=== PATIENT | male | born 1965 | race Two or more races ===

== ENCOUNTER 2019-11-27 19:09 | Emergency (ER) | payer MEDICAID ==
[~2019-11-27] VITALS: Ht 167.6 cm; Wt 93.0 kg
--- NOTE | 2019-11-27 19:33 | NUR ---
BIBSELF +SI PLAN TO RUN INTO TRAFFIC. REQUEST TO GO TO [facility]. PT AOX4 RR EVEN AND UNLABORED. NO SOB NOTED. NO NVD AT THIS TIME. PT WAITING FOR MD BARTLETT.
--- NOTE | 2019-11-27 19:36 | NUR ---
LAB WITH PT FOR BLOOD DRAW
[2019-11-27 19:41] LABS: BASOPHILS # (AUTO) 0.1 /CMM (0.0-0.2); BASOPHILS % (AUTO) 0.9 % (0.0-2.0); EOSINOPHILS % (AUTO) 0.8 % (0.0-6.0); HEMATOCRIT 42 % (39-51); HEMOGLOBIN 13.8 g/dL (13.5-17.5); LYMPHOCYTES # (AUTO) 2.2 /CMM (0.8-4.8); LYMPHOCYTES % (AUTO) 31.1 % (20.0-44.0); MEAN CORPUSCULAR HGB CONC 33 g/dl (31.0-36.0); MEAN CORPUSCULAR VOLUME 87 fL (80-96); MONOCYTES # (AUTO) 0.4 /CMM (0.1-1.30); MONOCYTES % (AUTO) 6.1 % (2.0-12.0); NEUTROPHILS # (AUTO) 4.3 /CMM (1.8-8.9); NEUTROPHILS % (AUTO) 61.1 % (43.0-81.0); PLATELET COUNT (AUTO) 219 /CMM (150-450); RED BLOOD CELL COUNT(AUTO) 4.76 MIL/uL (4.5-6.0); WHITE BLOOD COUNT (AUTO) 7.1 K/uL (4.3-11.0)
[2019-11-27 19:47] LABS: APPEARANCE,URINE Clear (CLEAR); BILIRUBIN,URINE Negative (NEGATIVE); BLOOD, URINE Trace-lysed Ery/uL (NEGATIVE); COLOR,URINE Yellow (YELLOW); KETONES,URINE Negative (NEGATIVE); LEUKOCYTE ESTERASE ,URINE Trace (NEGATIVE); NITRITE, URINE Negative (NEGATIVE); PH,URINE 5.5 (5.0-8.0); PROTEIN,URINE Negative (NEGATIVE); UGLUCOSE Negative (NEGATIVE); UROBILINOGEN,URINE 0.2 EU/dL (0.2)
[2019-11-27 20:14] LABS: ALBUMIN 3.9 g/dL (3.4-5.0); BILIRUBIN,DIRECT 0.1 mg/dL (0.0-0.2); BILIRUBIN,TOTAL 0.2 mg/dL (0.2-1.0); CALCIUM, SERUM 10.1 mg/dL (8.5-10.1); CREATININE 1.1 mg/dL (0.6-1.3); POTASSIUM 3.5 mmol/L (3.5-5.1); SALICYLATE 4.3 mg/dL (2.8-20.0); TOTAL PROTEIN, SERUM 8.7 g/dL (6.4-8.2)
[2019-11-27 20:19] LABS: BACTERIA,URINE Few /HPF (None Seen); SQUAMOUS EPITHELIAL CELL,UR Few /HPF (None Seen)
--- NOTE | 2019-11-27 21:00 | NUR ---
PT MOVED FROM CHAIR TO BED 13, CALLED EPI TO TEOFILOD PT, PT PERSONAL BELONGINGS PLACED ON SECURED LOCKER, PT PLACED ON SAFETY PRECAUTION. SITTER WITHIN LINE OF SIGHT.
--- NOTE | 2019-11-28 03:29 | NUR ---
EMILY LEO. DR. TEMPLE REPORT [phone] [place] [id number] Addendum: 11/28/19 at 0334 by MARTINEZ REPORT NUMBER [phone]
--- NOTE | 2019-11-28 03:37 | NUR ---
[facility] CALLED FOR TRANSPORT. ETA 2019. TRIP#[id number]
--- NOTE | 2019-11-28 03:38 | NUR ---
REPORT GIVEN TO LAMONT HAYNES FOR CONTINUITY OF CARE AT [facility].
--- NOTE | 2019-11-28 03:49 | NUR ---
[facility] AT BEDSIDE FOR TRANSPORT TO [facility].
[2019-11-28 03:52] VITALS: BP 126/88
== END 2019-11-28 04:00 ==
LOC: ER 19:19
DX: R45.851 Suicidal ideations (principal); R56.9 Unspecified convulsions; I10 Essential (primary) hypertension; F32.9 Major depressive disorder, single episode, unspecified
CPT/HCPCS: 36415 ×2; 80048; 80076; 80305; 80307 ×3; 80329; 81001; 85025; 99285; G0480; 81000-TC

== ENCOUNTER 2020-01-19 08:32 | Emergency (ER) | payer MEDICAID ==
[~2020-01-19] VITALS: Ht 167.6 cm; Wt 92.5 kg
--- NOTE | 2020-01-19 08:55 | NUR ---
patient came in to the ER c/o suicidal ideation "i want to run through traffic", -HI. On room air, breathing evenly and unlabored. sitter at bedside for constant monitoring. Ambulatory with steady gait.
--- NOTE | 2020-01-19 09:00 | NUR ---
urine collected and sent to lab
[2020-01-19 09:02] LABS: BILIRUBIN,URINE SMALL (NEGATIVE); BLOOD, URINE Moderate Ery/uL (NEGATIVE); KETONES,URINE 15 (NEGATIVE); LEUKOCYTE ESTERASE ,URINE Negative (NEGATIVE); NITRITE, URINE Negative (NEGATIVE); PROTEIN,URINE >=300 mg/dl (NEGATIVE); UGLUCOSE Negative (NEGATIVE)
[2020-01-19 09:04] LABS: APPEARANCE,URINE SLIGHTLY HAZY (CLEAR)
[2020-01-19 09:05] LABS: BACTERIA,URINE Few /HPF (None Seen); COLOR,URINE DARK YELLOW (YELLOW); MUCUS,URINE Moderate /LPF (None Seen); SQUAMOUS EPITHELIAL CELL,UR Few /HPF (None Seen)
--- NOTE | 2020-01-19 09:05 | NUR ---
called security for wanding
--- NOTE | 2020-01-19 09:10 | NUR ---
security at bedside and wand the patient, belongings kept in the locker room.
[2020-01-19 09:21] LABS: BASOPHILS # (AUTO) 0.1 /CMM (0.0-0.2); BASOPHILS % (AUTO) 1.1 % (0.0-2.0); EOSINOPHILS % (AUTO) 0.2 % (0.0-6.0); HEMATOCRIT 41 % (39-51); HEMOGLOBIN 13.7 g/dL (13.5-17.5); LYMPHOCYTES # (AUTO) 1.5 /CMM (0.8-4.8); LYMPHOCYTES % (AUTO) 29.3 % (20.0-44.0); MEAN CORPUSCULAR HGB CONC 33 g/dl (31.0-36.0); MEAN CORPUSCULAR VOLUME 88 fL (80-96); MONOCYTES # (AUTO) 0.4 /CMM (0.1-1.30); MONOCYTES % (AUTO) 7.3 % (2.0-12.0); NEUTROPHILS # (AUTO) 3.2 /CMM (1.8-8.9); NEUTROPHILS % (AUTO) 62.1 % (43.0-81.0); PLATELET COUNT (AUTO) 289 /CMM (150-450); RED BLOOD CELL COUNT(AUTO) 4.67 MIL/uL (4.5-6.0); WHITE BLOOD COUNT (AUTO) 5.2 K/uL (4.3-11.0)
[2020-01-19 09:32] LABS: CALCIUM, SERUM 9.6 mg/dL (8.5-10.1); POTASSIUM 3.5 mmol/L (3.5-5.1)
[2020-01-19 09:38] LABS: BILIRUBIN,DIRECT 0.2 mg/dL (0.0-0.2); BILIRUBIN,TOTAL 0.5 mg/dL (0.2-1.0); SALICYLATE 4.5 mg/dL (2.8-20.0)
--- NOTE | 2020-01-19 10:10 | NUR ---
EMERGENCY MEDICAL TECHNICIAN was informed by ESTHELA Lyons regarding pt. wanting voluntary psychiatric admission to [facility]. EMERGENCY MEDICAL TECHNICIAN contacted [facility] who stated they will have a bed for the pt. at [place] or [place]. EMERGENCY MEDICAL TECHNICIAN faxed clinicals to intake at . EMERGENCY MEDICAL TECHNICIAN to meet with pt. for a psychosocial assessment.
--- NOTE | 2020-01-19 10:30 | NUR ---
Social service consult requested by MD for suicidal ideation with a plan to "jump into traffic." Per MD notes, "pt is 54-year-old male who has a history of depression and suicidal ideation presents the emergency room complaining of suicidal ideation and wanting to run into traffic the last 2 days. Patient states he was last hospitalized proximate 3 weeks ago at [facility]. Patient admits to recent alcohol and marijuana use. Patient states he is taking his medications for his depression and also for hypertension and seizures. Patient has not missed any doses." MATERIAL EXPEDITOR met with the pt bedside. Pt is alert and oriented x 4. Pt was watching TV when MATERIAL EXPEDITOR approached him. MATERIAL EXPEDITOR introduced self and purpose of her visit. Pt is homeless and has been for 2 weeks. Pt was staying with his cousin but had to move out due to cousin's daughter moved in. Pt has been staying with friends. Pt. has a psychiatric diagnosis of Schizophrenia and is currently taking Seroquel, Keppra and high blood pressure medication. Pt has suicidal ideations with a plan to run into traffic. Pt also reports to having auditory hallucinations telling him to " hurt himself." Pt smokes marijuana and reports to drink a 1/5 of vodka occasionally. Pt is willing to go voluntary to [facility]. Pt has been referred and is awaiting a bed. [facility] updated Dr. Zacarias and ESTHELA Lyons.
--- NOTE | 2020-01-19 12:03 | NUR ---
ROOFER METAL [facility] for [facility]/up. Per CJ pt has been placed on a "Do not admit list" for [facility] and clinicals have been forwarded to [facility]. ROOFER METAL contacted Jeffy at [facility], and was informed he did receive the clinicals and are currently awaiting discharges at this time. Jeffy to f/up with ED or SW. ROOFER METAL also contacted [facility] regarding pt being on a "Do not admit list." [facility] will f/u and call back ROOFER METAL.
--- NOTE | 2020-01-19 12:22 | NUR ---
FOREIGN DIPLOMAT received a call from [facility] informing [facility] they will be accepting the pt at [place].
[2020-01-19 16:27] VITALS: BP 120/71
--- NOTE | 2020-01-19 19:54 | NUR ---
SPOKE TO [facility] FOR TRANSFER INFO. ACCEPTING MD: DR. DAILY REPORT #: UNIT 1
--- NOTE | 2020-01-19 20:12 | NUR ---
CALLED TO [facility] FOR BLS TRANSPORT TO [facility]. RUN #: [id number] ETA: 30MIN-4 HOURS
--- NOTE | 2020-01-19 21:27 | NUR ---
RECEIVED CALL FROM [facility]. ETA: 45 MIN
--- NOTE | 2020-01-19 21:59 | NUR ---
REPORT GIVEN TO ADDIE MIGUEL FOR CONTINUATION OF CARE.
--- NOTE | 2020-01-19 22:47 | NUR ---
[facility] AT BEDSIDE FOR TRANSPORT.
== END 2020-01-19 22:50 ==
LOC: ER 08:32
DX: R45.851 Suicidal ideations (principal); F32.9 Major depressive disorder, single episode, unspecified; I10 Essential (primary) hypertension; Z60.2 Problems related to living alone
CPT/HCPCS: 36415; 80048; 80076; 80305; 80307; 80329; 81001; 85025; 99285; G0480; 81000-TC

== ENCOUNTER → 2020-03-13 | Emergency (ER) | payer MEDICAID ==
[~2020-03-13] VITALS: Ht 167.6 cm; Wt 90.7 kg
[~2020-03-13] MED LIST: FOLIC ACID 1 MG TABLET PO ONE; HYDROCHLOROTHIAZIDE 25 MG TABLET ONE; HYDROCHLOROTHIAZIDE 25 MG TABLET PO ONE; IV NS 0.9% 1,000 ML BAG IV ONE; THIAMINE HCL 100 MG TABLET PO ONE
[2020-03-13 16:33] LABS: BASOPHILS # (AUTO) 0.1 /CMM (0.0-0.2); BASOPHILS % (AUTO) 1.8 % (0.0-2.0); EOSINOPHILS % (AUTO) 0.5 % (0.0-6.0); HEMATOCRIT 42 % (39-51); HEMOGLOBIN 14.2 g/dL (13.5-17.5); LYMPHOCYTES # (AUTO) 1.9 /CMM (0.8-4.8); MEAN CORPUSCULAR HGB CONC 34 g/dl (31.0-36.0); MEAN CORPUSCULAR VOLUME 88 fL (80-96); MONOCYTES # (AUTO) 0.3 /CMM (0.1-1.30); MONOCYTES % (AUTO) 4.7 % (2.0-12.0); NEUTROPHILS # (AUTO) 3.7 /CMM (1.8-8.9); PLATELET COUNT (AUTO) 305 /CMM (150-450); RED BLOOD CELL COUNT(AUTO) 4.83 MIL/uL (4.5-6.0)
[2020-03-13 16:40] LABS: CALCIUM, SERUM 9.2 mg/dL (8.5-10.1); CREATININE 1.4 mg/dL (0.6-1.3); POTASSIUM 3.8 mmol/L (3.5-5.1)
--- NOTE | 2020-03-13 16:47 | NUR ---
Patient awake alert ambulatory able to follows commands urine obtained and send to lab
[2020-03-13 16:48] LABS: ALBUMIN 4.2 g/dL (3.4-5.0); BILIRUBIN,DIRECT 0.1 mg/dL (0.0-0.2); BILIRUBIN,TOTAL 0.4 mg/dL (0.2-1.0); SALICYLATE 3.3 mg/dL (2.8-20.0); TOTAL PROTEIN, SERUM 9.6 g/dL (6.4-8.2)
--- NOTE | 2020-03-13 19:06 | NUR ---
PT AAOX4. PLACED ON MONITOR AND PULSE OX. RR EVEN AND UNLABORED, PT IN BED WATCHING TV. WILL CONTINUE TO MONITOR PT. VSS.
--- NOTE | 2020-03-13 21:04 | NUR ---
Patient is resting comfortably in bed. Easily aroused. VSS.
--- NOTE | 2020-03-13 22:25 | NUR ---
CLINICAL AND FACESHEET FAXED TO [facility] FOR VOLUNTARY PSYCH ADMISSION.
--- NOTE | 2020-03-13 22:34 | NUR ---
MISSING UA AND LIVER PANEL.
--- NOTE | 2020-03-13 22:40 | NUR ---
PER INTAKE, "WILL WAIT FOR UA AND LIVER PANEL" THEN CALL BACK.
--- NOTE | 2020-03-13 22:52 | NUR ---
IV removed. Catheter intact and site benign. Pressure and 4x4 applied to site. No bleeding noted.
--- NOTE | 2020-03-13 23:02 | NUR ---
PER JOSEFINA, FAX AFTER ALCOHOL IS BELOW 100.
--- NOTE | 2020-03-14 03:20 | NUR ---
PATIENT RESTING COMFORTABLY. PT IS ASLEEP, EASILY AROUSED.
--- NOTE | 2020-03-14 04:11 | NUR ---
David olivares in [facility] - 03/14/20 at 0626 by MICKEY PT ACCEPTED AT [facility] MD ARAGON PHONE # FOR REPORT EXT [phone]
--- NOTE | 2020-03-14 05:40 | NUR ---
CLINICAL AND FACESHEET FAXED TO [facility] INTAKE FOR VOLUNTARY PSYCH ADMISSION.
[2020-03-14 07:10] VITALS: BP 165/100
--- NOTE | 2020-03-14 07:30 | NUR ---
PT ACCEPTED AT [facility] ACCEPTING MD AGOSTO PHONE # FOR REPORT EXT [phone] ROOM P6
--- NOTE | 2020-03-14 08:11 | NUR ---
CALLED [facility] FOR TRANSPORT. 4 HOUR WAIT WINDOW, WILL CALL BACK IF THERE IS A SOONER ETA. REFERENCE NUMBER [id number].
--- NOTE | 2020-03-14 08:31 | NUR ---
RECIEVED A CALL BACK FROM [facility] WITH [facility]SPORT INFORMATION. DIANA WILL BE TRANSPORTING THE PT. ETA [phone].
== END | disposition short-term general hospital (02) ==
LOC: ER 16:14
DX: R45.851 Suicidal ideations (principal); F10.129 Alcohol abuse with intoxication, unspecified; E87.2 Acidosis; N28.9 Disorder of kidney and ureter, unspecified; E86.0 Dehydration; I10 Essential (primary) hypertension; F32.9 Major depressive disorder, single episode, unspecified; F17.200 Nicotine dependence, unspecified, uncomplicated; Z59.0 Homelessness; Y90.9 Presence of alcohol in blood, level not specified
CPT/HCPCS: 36415 ×2; 80048; 80076; 80305; 80307 ×4; 80329; 85025; 96360; 99285; G0480; J7030

== ENCOUNTER 2020-06-17 20:14 | Emergency (ER) | payer MEDICAID ==
[~2020-06-17] VITALS: Ht 167.6 cm; Wt 90.7 kg
--- NOTE | 2020-06-17 20:24 | NUR ---
REQ MED [facility]ANCE FOR VOLUNTARY PSYCH ADMIT; +SI "RUN INTO TRAFFIC" -HI; PT TO BED 15, AAOX4, -SOB, NO MEDICAL COMPLAINTS; CALM AND COOPERATIVE. -SOB. -CP. SI PRECAUTIONS OBSERVED, VSS. PENDING ER PROVIDER TRI
--- NOTE | 2020-06-17 20:34 | NUR ---
ALL BELONGINGS KEPT IN LOCKER 3
[2020-06-17 21:07] LABS: BASOPHILS % (AUTO) 0.8 % (0.0-2.0); EOSINOPHILS % (AUTO) 1.5 % (0.0-6.0); HEMATOCRIT 39 % (39-51); HEMOGLOBIN 12.6 g/dL (13.5-17.5); LYMPHOCYTES # (AUTO) 2.1 /CMM (0.8-4.8); LYMPHOCYTES % (AUTO) 39.4 % (20.0-44.0); MEAN CORPUSCULAR HGB CONC 33 g/dl (31.0-36.0); MEAN CORPUSCULAR VOLUME 88 fL (80-96); MONOCYTES # (AUTO) 0.5 /CMM (0.1-1.30); MONOCYTES % (AUTO) 9.2 % (2.0-12.0); NEUTROPHILS # (AUTO) 2.6 /CMM (1.8-8.9); NEUTROPHILS % (AUTO) 49.1 % (43.0-81.0); PLATELET COUNT (AUTO) 284 /CMM (150-450); RED BLOOD CELL COUNT(AUTO) 4.39 MIL/uL (4.5-6.0); WHITE BLOOD COUNT (AUTO) 5.3 K/uL (4.3-11.0)
[2020-06-17 21:11] LABS: APPEARANCE,URINE Clear (CLEAR); BILIRUBIN,URINE Negative (NEGATIVE); BLOOD, URINE Negative Ery/uL (NEGATIVE); COLOR,URINE Yellow (YELLOW); KETONES,URINE Negative (NEGATIVE); LEUKOCYTE ESTERASE ,URINE Negative (NEGATIVE); NITRITE, URINE Negative (NEGATIVE); PROTEIN,URINE Negative (NEGATIVE); UGLUCOSE Negative (NEGATIVE); UROBILINOGEN,URINE 0.2 EU/dL (0.2)
[2020-06-17 21:17] LABS: CALCIUM, SERUM 10.2 mg/dL (8.5-10.1); CARBON DIOXIDE 33 mmol/L (21-32); CHLORIDE 100 mmol/L (98-107); CREATININE 1.3 mg/dL (0.6-1.3); GLUCOSE 108 mg/dL (74-106); SODIUM SERUM 140 mmol/L (136-145); UREA NITROGEN, BLOOD 13 mg/dL (7-18)
[2020-06-17 21:22] LABS: ALANINE AMINOTRANSFERASE 23 U/L (12-78); ALBUMIN 3.8 g/dL (3.4-5.0); ALCOHOL, BLOOD 149 mg/dL (0-0); ALKALINE PHOSPHATASE 72 U/L (46-116); ASPARTATE AMINOTRANSFERASE 21 U/L (15-37); BILIRUBIN,DIRECT 0.1 mg/dL (0.0-0.2); BILIRUBIN,TOTAL 0.2 mg/dL (0.2-1.0); SALICYLATE 3.6 mg/dL (2.8-20.0); TOTAL PROTEIN, SERUM 8.1 g/dL (6.4-8.2)
[2020-06-17 21:23] LABS: ACETAMINOPHEN < 10 ug/ml (10-30)
[2020-06-17] MEDS ORDERED: POTASSIUM CHLORIDE 20 MEQ TAB.PRT.SR PO ONE ×2 (21:30→21:34)
--- NOTE | 2020-06-17 21:42 | NUR ---
PT ASLEEP/ VSS. PROVIDED WITH BLANKET.
--- NOTE | 2020-06-18 02:48 | NUR ---
PT ACCEPTED TO [facility] ACCEPTING MD: DR. DAILY UNIT 1 NUMBER FOR REPORT: [phone]
--- NOTE | 2020-06-18 02:51 | NUR ---
CALLED [facility] FOR TRANSPORTATION CONFIRMATION [phone]. WILL CALL BACK WITH ETA
--- NOTE | 2020-06-18 03:00 | NUR ---
[facility] ETA 30 MINUTES
[2020-06-18] MEDS ORDERED: POTASSIUM CHLORIDE 20 MEQ TAB.PRT.SR PO ONE ×2 (03:03→03:30)
--- NOTE | 2020-06-18 03:20 | NUR ---
REPORT GIVEN TO LAMONT NAJERA FROM [facility] FOR AMY
[2020-06-18 03:21] VITALS: BP 137/84
--- NOTE | 2020-06-18 03:27 | NUR ---
PT TRANSFERED TO [facility]
== END 2020-06-18 03:54 ==
LOC: ER 20:22
DX: R45.851 Suicidal ideations (principal); F32.9 Major depressive disorder, single episode, unspecified; F10.129 Alcohol abuse with intoxication, unspecified; F17.200 Nicotine dependence, unspecified, uncomplicated; I10 Essential (primary) hypertension; Z59.0 Homelessness; Y90.6 Blood alcohol level of 120-199 mg/100 ml
CPT/HCPCS: 36415; 80048; 80076; 80305; 80307 ×2; 80329; 81001; 85025; 99285; G0480; 81000-TC

== ENCOUNTER 2020-07-09 17:28 | Emergency (ER) | payer MEDICAID ==
[~2020-07-09] VITALS: Ht 167.6 cm; Wt 90.7 kg
--- NOTE | 2020-07-09 17:35 | NUR ---
patient came in to the er c/o suicidal ideation " i want to run through traffic". On room air, breathing evenly and unlabored. connected to the monitor and pulse ox, sitter at bedside for constant monitoring.
--- NOTE | 2020-07-09 17:36 | NUR ---
called security for wanding
--- NOTE | 2020-07-09 17:38 | NUR ---
security at bedside for wanding.
--- NOTE | 2020-07-09 18:07 | NUR ---
URINE SPECIMEN COLLECTED AND SENT TO LAB.
[2020-07-09 18:10] LABS: BASOPHILS # (AUTO) 0.1 /CMM (0.0-0.2); BASOPHILS % (AUTO) 0.9 % (0.0-2.0); EOSINOPHILS % (AUTO) 1.8 % (0.0-6.0); HEMATOCRIT 38 % (39-51); HEMOGLOBIN 12.8 g/dL (13.5-17.5); LYMPHOCYTES % (AUTO) 31.7 % (20.0-44.0); MEAN CORPUSCULAR HGB CONC 34 g/dl (31.0-36.0); MEAN CORPUSCULAR VOLUME 88 fL (80-96); MONOCYTES # (AUTO) 0.5 /CMM (0.1-1.30); MONOCYTES % (AUTO) 7.8 % (2.0-12.0); NEUTROPHILS # (AUTO) 3.6 /CMM (1.8-8.9); NEUTROPHILS % (AUTO) 57.8 % (43.0-81.0); PLATELET COUNT (AUTO) 221 /CMM (150-450); RED BLOOD CELL COUNT(AUTO) 4.38 MIL/uL (4.5-6.0); WHITE BLOOD COUNT (AUTO) 6.3 K/uL (4.3-11.0)
[2020-07-09 18:11] LABS: APPEARANCE,URINE Clear (CLEAR); BILIRUBIN,URINE SMALL (NEGATIVE); BLOOD, URINE Trace-intact Ery/uL (NEGATIVE); COLOR,URINE Yellow (YELLOW); KETONES,URINE 15 (NEGATIVE); LEUKOCYTE ESTERASE ,URINE Negative (NEGATIVE); NITRITE, URINE Negative (NEGATIVE); PROTEIN,URINE 30 mg/dl (NEGATIVE); UGLUCOSE Negative (NEGATIVE); UROBILINOGEN,URINE 0.2 EU/dL (0.2)
[2020-07-09 18:17] LABS: CALCIUM, SERUM 9.6 mg/dL (8.5-10.1); CARBON DIOXIDE 23 mmol/L (21-32); CHLORIDE 101 mmol/L (98-107); CREATININE 1.8 mg/dL (0.6-1.3); GLUCOSE 104 mg/dL (74-106); SODIUM SERUM 138 mmol/L (136-145); UREA NITROGEN, BLOOD 19 mg/dL (7-18)
[2020-07-09 18:23] LABS: ALANINE AMINOTRANSFERASE 39 U/L (12-78); ALBUMIN 3.9 g/dL (3.4-5.0); ALCOHOL, BLOOD 71 mg/dL (0-0); ALKALINE PHOSPHATASE 88 U/L (46-116); ASPARTATE AMINOTRANSFERASE 25 U/L (15-37); BILIRUBIN,DIRECT 0.1 mg/dL (0.0-0.2); BILIRUBIN,TOTAL 0.4 mg/dL (0.2-1.0); TOTAL PROTEIN, SERUM 8.1 g/dL (6.4-8.2)
[2020-07-09 18:24] LABS: ACETAMINOPHEN < 10 ug/ml (10-30); SALICYLATE 2.7 mg/dL (2.8-20.0)
[2020-07-09 18:26] LABS: BACTERIA,URINE 1+ /HPF (None Seen); HYALINE CASTS, URINE Few /LPF (None Seen); MUCUS,URINE Moderate /LPF (None Seen); RBC,URINE 0-2 /HPF (0-2); WBC,URINE 0-2 /HPF (0-3)
[2020-07-09] MEDS ORDERED: POTASSIUM CHLORIDE 20 MEQ TAB.PRT.SR PO ONE (18:59)
[2020-07-09] MEDS: IV NS 0.9% 1,000 ML IV ONE (19:03)
[2020-07-09] MEDS: POTASSIUM CHLORIDE 20 MEQ TAB.PRT.SR PO ONE (19:03)
--- NOTE | 2020-07-09 19:15 | NUR ---
ASSUMED CARE FOR THIS PT
[2020-07-09] MEDS ORDERED: ACETAMINOPHEN ES 500 MG TABLET ONE ×3 (20:22→22:08)
[2020-07-09] MEDS: ACETAMINOPHEN ES 500 MG TABLET PO ONE (20:33)
--- NOTE | 2020-07-09 21:54 | NUR ---
PT RESTING COMFORTABLY IN BED. VSS. NOT IN RESPIRATORY DISTRESS. SITTER AT BEDSIDE FOR SAFETY. WILL MONITOR ACCORDINGLY
--- NOTE | 2020-07-09 23:16 | NUR ---
ACCEPTED AT: [facility] UNIT 2 REPORT: [phone] ARAGON
--- NOTE | 2020-07-09 23:25 | NUR ---
REPORT GIVEN TO LAMONT RAGSDALE [facility] FOR AMY
--- NOTE | 2020-07-09 23:27 | NUR ---
PER LAMONT RAGSDALE REDRAW FOR ALCOHOL AND POTASSIUM
--- NOTE | 2020-07-09 23:27 | NUR ---
SPOKE W/ JN, NO NEED FOR REDRAW FOR K+ AND ALCOHOL
--- NOTE | 2020-07-09 23:34 | NUR ---
[facility] called for BLS transport. Pending ETA. [phone]
--- NOTE | 2020-07-10 01:53 | NUR ---
[facility] ETA 45 MINUTES
[2020-07-10 02:25] VITALS: BP 132/71
--- NOTE | 2020-07-10 02:25 | NUR ---
[facility] at bedside for transport to [facility].
== END 2020-07-10 02:26 | disposition home or self-care (01) ==
LOC: ER 17:39
DX: R45.851 Suicidal ideations (principal); F32.9 Major depressive disorder, single episode, unspecified; N28.9 Disorder of kidney and ureter, unspecified; E86.0 Dehydration; E87.6 Hypokalemia; I10 Essential (primary) hypertension; Z59.0 Homelessness
CPT/HCPCS: 36415; 80048; 80076; 80305; 80307; 80329; 81001; 85025; 96360; 99285; G0480; J7030; 81000-TC

== ENCOUNTER 2020-07-23 18:26 | Emergency (ER) | payer MEDICAID ==
[~2020-07-23] VITALS: Ht 165.1 cm; Wt 97.1 kg
--- NOTE | 2020-07-23 18:41 | NUR ---
CAME IN FOR SI, "I WANT TO RUN THROUGH TRAFFIC". TO ER BED 11, HOOKED TO MONITOR, CHANGED TO HOSP GOWN, BELONGINGS PLACED IN PATIENT LOCKER. AWAITING MD BARTLETT
--- NOTE | 2020-07-23 18:42 | NUR ---
GADIEL MOON AT BEDSIDE
--- NOTE | 2020-07-23 18:45 | NUR ---
SUICIDE PRECAUTIONS APPLIED. SITTER AT BEDSIDE FOR SAFETY.
--- NOTE | 2020-07-23 18:49 | NUR ---
URINE SAMPLE COLLECTED AND SENT TO LAB
--- NOTE | 2020-07-23 18:56 | NUR ---
SECURITY AT BEDSIDE FOR WANDING
[2020-07-23 18:59] LABS: APPEARANCE,URINE Clear (CLEAR); BILIRUBIN,URINE Negative (NEGATIVE); BLOOD, URINE Trace-intact Ery/uL (NEGATIVE); COLOR,URINE Light yellow (YELLOW); KETONES,URINE Negative (NEGATIVE); LEUKOCYTE ESTERASE ,URINE Negative (NEGATIVE); NITRITE, URINE Negative (NEGATIVE); PROTEIN,URINE Negative (NEGATIVE); UGLUCOSE Negative (NEGATIVE); UROBILINOGEN,URINE 0.2 EU/dL (0.2)
[2020-07-23] MEDS ORDERED: IBUPROFEN 600 MG TABLET PO ONE ×2 (19:00→19:06)
[2020-07-23 19:07] LABS: BASOPHILS # (AUTO) 0.1 /CMM (0.0-0.2); BASOPHILS % (AUTO) 0.9 % (0.0-2.0); EOSINOPHILS % (AUTO) 1.3 % (0.0-6.0); HEMATOCRIT 37 % (39-51); HEMOGLOBIN 12.2 g/dL (13.5-17.5); LYMPHOCYTES # (AUTO) 2.3 /CMM (0.8-4.8); LYMPHOCYTES % (AUTO) 36.1 % (20.0-44.0); MEAN CORPUSCULAR HGB CONC 33 g/dl (31.0-36.0); MEAN CORPUSCULAR VOLUME 88 fL (80-96); MONOCYTES # (AUTO) 0.5 /CMM (0.1-1.30); MONOCYTES % (AUTO) 7.6 % (2.0-12.0); NEUTROPHILS # (AUTO) 3.5 /CMM (1.8-8.9); NEUTROPHILS % (AUTO) 54.1 % (43.0-81.0); PLATELET COUNT (AUTO) 269 /CMM (150-450); RED BLOOD CELL COUNT(AUTO) 4.23 MIL/uL (4.5-6.0); WHITE BLOOD COUNT (AUTO) 6.4 K/uL (4.3-11.0)
--- NOTE | 2020-07-23 19:11 | NUR ---
PT REASSESSED. PT AAOX4, VSS, RESPIRATIONS EVEN AND UNLABORED ON RA W/ NAD NOTED. PT CONNECTED TO THE MONITOR AND POX. SITTER AT BEDSIDE FOR SAFETY AND CONSTANT AND OBSERVATION.
[2020-07-23 19:14] LABS: CARBON DIOXIDE 24 mmol/L (21-32); CHLORIDE 104 mmol/L (98-107); CREATININE 1.3 mg/dL (0.6-1.3); GLUCOSE 111 mg/dL (74-106); POTASSIUM 3.5 mmol/L (3.5-5.1); SODIUM SERUM 140 mmol/L (136-145); UREA NITROGEN, BLOOD 13 mg/dL (7-18)
[2020-07-23 19:19] LABS: ALANINE AMINOTRANSFERASE 26 U/L (12-78); ALBUMIN 3.8 g/dL (3.4-5.0); ALCOHOL, BLOOD 133 mg/dL (0-0); ALKALINE PHOSPHATASE 80 U/L (46-116); ASPARTATE AMINOTRANSFERASE 24 U/L (15-37); BILIRUBIN,DIRECT 0.1 mg/dL (0.0-0.2); BILIRUBIN,TOTAL 0.3 mg/dL (0.2-1.0); SALICYLATE 2.9 mg/dL (2.8-20.0); TOTAL PROTEIN, SERUM 8.6 g/dL (6.4-8.2)
[2020-07-23 19:19] LABS: BACTERIA,URINE Few /HPF (None Seen); SQUAMOUS EPITHELIAL CELL,UR Many /HPF (None Seen)
[2020-07-23 19:20] LABS: RBC,URINE 0-2 /HPF (0-2); WBC,URINE 0-2 /HPF (0-3)
[2020-07-23 19:23] LABS: ACETAMINOPHEN < 2 ug/ml (10-30)
--- NOTE | 2020-07-23 21:20 | NUR ---
WOUND CARE COORDINATOR AT BEDSIDE FOR BLOOD DRAW
--- NOTE | 2020-07-23 23:43 | NUR ---
PT RESTING COMFORTABLY IN BED. VSS. NO ACUTE DISTRESS NOTED. SITTER AT BEDSIDE FOR SAFETY. WILL CONTINUE TO MONITOR
--- NOTE | 2020-07-24 00:34 | NUR ---
PER CJ FROM [facility] INTAKE, PT ON "DO NOT ADMIT LIST" FOR [facility]
--- NOTE | 2020-07-24 06:01 | NUR ---
PT ASLEEP. VSS. NO ACUTE DISTRESS NOTED. SITTER AT BEDSIDE FOR SAFETY. WILL CONTINUE TO MONITOR
--- NOTE | 2020-07-24 07:15 | NUR ---
PATIENT CLEARED BY KANDY CRISIS UNLEAVENED DOUGH MIXER. PT OK TO BE DISCHARGED HOME PER DR RENEE. PT DENIES SI/HI. Patient discharged to home in stable condition. Written and verbal after care instructions given. Patient verbalizes understanding of instruction.Patient is awake and alert to self, day, and place. PT ambulatory with a steady gait
[2020-07-24 07:16] VITALS: BP 131/78
== END 2020-07-24 07:16 | disposition home or self-care (01) ==
LOC: ER 18:26
DX: R45.851 Suicidal ideations (principal); F32.9 Major depressive disorder, single episode, unspecified; M54.5 Low back pain; I10 Essential (primary) hypertension; G40.909 Epilepsy, unspecified, not intractable, without status epilepticus; F17.200 Nicotine dependence, unspecified, uncomplicated; Z59.0 Homelessness
CPT/HCPCS: 36415; 80048; 80076; 80305; 80307 ×3; 80329; 81001; 85025; 99285; G0480; 81000-TC

== ENCOUNTER 2020-07-25 09:42 | Emergency (ER) | payer MEDICAID ==
[~2020-07-25] VITALS: Ht 157.5 cm; Wt 92.5 kg
--- NOTE | 2020-07-25 09:45 | NUR ---
AAOX3, CAME TO ER C/O SUICIDAL IDEATION "I WANT TO HARM MYSELF" PLAN IS TO "RUN INTO TRAFFIC". RR IS EVEN AND UNLABORED WITH NAD NOTED. SKIN IS WARM AND DRY. AWAITING MD FOR EVAL.
--- NOTE | 2020-07-25 10:00 | NUR ---
DR JAMES AT FOR EVAL.
[2020-07-25 10:49] LABS: BASOPHILS % (AUTO) 0.6 % (0.0-2.0); EOSINOPHILS % (AUTO) 0.8 % (0.0-6.0); HEMATOCRIT 40 % (39-51); HEMOGLOBIN 12.9 g/dL (13.5-17.5); LYMPHOCYTES # (AUTO) 1.2 /CMM (0.8-4.8); LYMPHOCYTES % (AUTO) 23.5 % (20.0-44.0); MEAN CORPUSCULAR HGB CONC 32 g/dl (31.0-36.0); MEAN CORPUSCULAR VOLUME 88 fL (80-96); MONOCYTES # (AUTO) 0.3 /CMM (0.1-1.30); MONOCYTES % (AUTO) 5.7 % (2.0-12.0); NEUTROPHILS # (AUTO) 3.7 /CMM (1.8-8.9); NEUTROPHILS % (AUTO) 69.4 % (43.0-81.0); PLATELET COUNT (AUTO) 294 /CMM (150-450); RED BLOOD CELL COUNT(AUTO) 4.53 MIL/uL (4.5-6.0); WHITE BLOOD COUNT (AUTO) 5.3 K/uL (4.3-11.0)
[2020-07-25 10:58] LABS: APPEARANCE,URINE CLEAR (CLEAR); BILIRUBIN,URINE NEGATIVE (NEGATIVE); BLOOD, URINE SMALL Ery/uL (NEGATIVE); COLOR,URINE YELLOW (YELLOW); KETONES,URINE TRACE (NEGATIVE); LEUKOCYTE ESTERASE ,URINE NEGATIVE (NEGATIVE); NITRITE, URINE NEGATIVE (NEGATIVE); PROTEIN,URINE 100 mg/dl (NEGATIVE); UGLUCOSE NEGATIVE (NEGATIVE); UROBILINOGEN,URINE 0.2 EU/dL (0.2)
[2020-07-25 11:08] LABS: BACTERIA,URINE Rare /HPF (None Seen); MUCUS,URINE Few /LPF (None Seen); SQUAMOUS EPITHELIAL CELL,UR Few /HPF (None Seen); WBC,URINE 0-2 /HPF (0-3)
[2020-07-25 11:14] LABS: CALCIUM, SERUM 9.9 mg/dL (8.5-10.1); CARBON DIOXIDE 27 mmol/L (21-32); CHLORIDE 102 mmol/L (98-107); CREATININE 1.2 mg/dL (0.6-1.3); GLUCOSE 141 mg/dL (74-106); SODIUM SERUM 139 mmol/L (136-145); UREA NITROGEN, BLOOD 13 mg/dL (7-18)
[2020-07-25 11:19] LABS: ALANINE AMINOTRANSFERASE 30 U/L (12-78); ALCOHOL, BLOOD < 3 mg/dL (0-0); ALKALINE PHOSPHATASE 70 U/L (46-116); ASPARTATE AMINOTRANSFERASE 43 U/L (15-37); BILIRUBIN,DIRECT 0.1 mg/dL (0.0-0.2); BILIRUBIN,TOTAL 0.6 mg/dL (0.2-1.0); TOTAL PROTEIN, SERUM 8.6 g/dL (6.4-8.2)
[2020-07-25 11:20] LABS: SALICYLATE 2.3 mg/dL (2.8-20.0)
[2020-07-25 12:29] LABS: ACETAMINOPHEN 0 ug/ml (10-30)
--- NOTE | 2020-07-25 13:01 | NUR ---
Patient is resting comfortably in bed with eyes closed. Easily aroused. VSS
--- NOTE | 2020-07-25 14:29 | NUR ---
patient stated he takes regular medication of HYDROCHLOROTHIAZIDE 25MG AND KEPPRA 500MG. DR. AMAYA MADE AWARE AND GAVE VERBAL ORDER.
[2020-07-25] MEDS ORDERED: HYDROCHLOROTHIAZIDE 25 MG TABLET PO ONE (14:30)
[2020-07-25] MEDS ORDERED: HYDROCHLOROTHIAZIDE 25 MG TABLET ONE (14:30)
[2020-07-25] MEDS ORDERED: LEVETIRACETAM (250 MG) 250 MG TABLET PO ONE ×2 (14:30)
--- NOTE | 2020-07-25 16:24 | NUR ---
3:30pm Warehouse Manager met with the patient at bedside in the ED. Patient is a 55-year-old Male. Patient presented to the ED per complaints of suicidal ideation. Patient was receptive to speaking with this SW. Patient is alert and oriented x3. Patient was able to confirm demographics including date of and social security number. Patient informed this SW that patient is homeless, and on occasion patient stays his friend Mark Bhatia . Patient reported to this SW that he would like resources including year-round shelters if there is a time he cannot stay with Mark. Patient stated that on occasion when I cannot stay with Mark, I stay at a hotel costing me $400. Patient reports that he drinks 1 pint of vodka every other day. Patient reports smoking marijuana every other day. Patient stated that he would like resources to help him quit so my family can speak to me again. Patient reports that he receives SSI approximately $896 a month Patient reports that he has had suicidal ideations in the past and that his current plan is to run into traffic. Patient would like his treatment plan to include voluntary psychiatric hospitalization. This SW faxed over clinicals to Jhonny at [facility] . This SW currently waiting on bed availability. This SW to provide this patient with homelessness resource packet and this SW remains available for all needs of the patient.
--- NOTE | 2020-07-25 16:24 | NUR ---
3:45pm This SW provided the following Homelessness resource packet to this patient and had the patient sign the homeless patient waiver form. This SW to include the homeless patient waiver form in his chart. Substance Abuse resources provided included: [facility] Substance Abuse Self-Helpline ([facility]) ; CRI -HELP [address] [facility]. [place] [id number] ; [facility] [place] [address] [facility] [address] ; [facility] [address] [address] [facility] [place] [phone] ; [facility] [address] [facility] [id number] ; [facility] [address] [facility] [id number] ; [facility] [address] [facility] [id number] ; [facility] Substance Abuse Helpline([facility])-[facility] ; [facility] ; [facility] [place]; [facility] [place]; [facility] [place]; [place] [facility] [place]; [facility] [place]; [facility] [place]; [facility] [place]; Alcoholics Anonymous -SFV; Dx-Qldv-Qjugkrn ; Marijuana Anonymous -SFV; Narcotics Anonymous www.na.org. Year-round shelters : [place] [facility] [address] [place] [address] ; [facility] Cash [address] [place] [address]; [facility] [address] [facility] [address] Hygiene: [facility]: [address] [place] ; [facility] [address] [address] [place] ; [facility] [address] . Food Resources: [facility] at [facility]- [address] [place]; Meet Each Need wit Dignity ([facility]) [address] [place]; [facility] [address]; [facility] [address].
--- NOTE | 2020-07-25 16:41 | NUR ---
NO BED AVAILABLE AT [facility] AT THIS TIME.
--- NOTE | 2020-07-25 17:37 | NUR ---
RECEIVED A CALL FROM [facility], PATIENT IS ACCEPTED AT [facility] BY DR. DAILY GOING TO UNIT#1
--- NOTE | 2020-07-25 17:56 | NUR ---
REPORT GIVEN TO JOE MIGUEL AT [facility].
--- NOTE | 2020-07-25 18:01 | NUR ---
ETA 2-4 HOURS. CONFIRMATION # [id number]
--- NOTE | 2020-07-25 18:09 | NUR ---
[facility] ETA
--- NOTE | 2020-07-25 20:24 | NUR ---
[facility] ETA ~45 MINS
[2020-07-25 22:15] VITALS: BP 149/75
--- NOTE | 2020-07-25 22:38 | NUR ---
PT TRANSPORTED TO [facility]. PT GOING ON VOLUNTARY STATUS FOR S/I, PT VSS, NAD NOTED, REMAINS STABLE, NO ACUTE EVENTS. REPORT GIVEN TO AMBULANCE STAFF.
== END 2020-07-25 22:40 ==
LOC: ER 10:05
DX: R45.851 Suicidal ideations (principal); I10 Essential (primary) hypertension; F32.9 Major depressive disorder, single episode, unspecified; F17.200 Nicotine dependence, unspecified, uncomplicated; Z59.0 Homelessness
CPT/HCPCS: 36415; 80048; 80076; 80305; 80307; 80329; 81001; 85025; 99285; G0480; 81000-TC

== ENCOUNTER 2020-08-10 17:10 | Emergency (ER) | payer MEDICAID ==
[~2020-08-10] VITALS: Ht 167.6 cm; Wt 97.1 kg
--- NOTE | 2020-08-10 18:08 | NUR ---
CAME IN FEELING DEPRESSED, SUICIDAL WITH PLAN TO RUN THROUGH TRAFFIC. RECENTLY HOMELESS. TO ER BED 11, HOOKED TO MONITOR, CHANGED TO HOSP GOWN, WARM BLANKET PROVIDED, PATIENT AAO x 4, BREATHING EVEN AND UNLABORED. AWAITING MD BARTLETT. SITTER AT BEDSIDE FOR SAFETY.
--- NOTE | 2020-08-10 18:40 | NUR ---
BUSINESS LEADER AT BEDSIDE
[2020-08-10 18:46] LABS: BASOPHILS % (AUTO) 0.6 % (0.0-2.0); EOSINOPHILS % (AUTO) 2.6 % (0.0-6.0); HEMATOCRIT 40 % (39-51); HEMOGLOBIN 12.8 g/dL (13.5-17.5); LYMPHOCYTES # (AUTO) 2.8 /CMM (0.8-4.8); MEAN CORPUSCULAR HGB CONC 32 g/dl (31.0-36.0); MEAN CORPUSCULAR VOLUME 88 fL (80-96); MONOCYTES # (AUTO) 0.4 /CMM (0.1-1.30); MONOCYTES % (AUTO) 6.5 % (2.0-12.0); NEUTROPHILS # (AUTO) 3.4 /CMM (1.8-8.9); NEUTROPHILS % (AUTO) 49.3 % (43.0-81.0); PLATELET COUNT (AUTO) 266 /CMM (150-450); WHITE BLOOD COUNT (AUTO) 6.8 K/uL (4.3-11.0)
--- NOTE | 2020-08-10 19:02 | NUR ---
URINE SAMPLE COLLECTED AND SENT TO LAB
[2020-08-10 19:07] LABS: APPEARANCE,URINE Clear (CLEAR); BILIRUBIN,URINE Negative (NEGATIVE); BLOOD, URINE Trace-lysed Ery/uL (NEGATIVE); COLOR,URINE Yellow (YELLOW); KETONES,URINE Negative (NEGATIVE); LEUKOCYTE ESTERASE ,URINE Negative (NEGATIVE); NITRITE, URINE Negative (NEGATIVE); PH,URINE 5.5 (5.0-8.0); PROTEIN,URINE Negative (NEGATIVE); UGLUCOSE Negative (NEGATIVE); UROBILINOGEN,URINE 0.2 EU/dL (0.2)
[2020-08-10 19:16] LABS: BACTERIA,URINE Rare /HPF (None Seen); RBC,URINE 2-4/HPF /HPF (0-2); SQUAMOUS EPITHELIAL CELL,UR Rare /HPF (None Seen); WBC,URINE 0-2 /HPF (0-3)
[2020-08-10 19:17] LABS: MUCUS,URINE Few /LPF (None Seen); URINE AMORPHOUS URATE Few /HPF (None Seen)
[2020-08-10 19:22] LABS: ALANINE AMINOTRANSFERASE 40 U/L (12-78); ALBUMIN 4.5 g/dL (3.4-5.0); ALCOHOL, BLOOD 159 mg/dL (0-0); ALKALINE PHOSPHATASE 75 U/L (46-116); ASPARTATE AMINOTRANSFERASE 33 U/L (15-37); BILIRUBIN,DIRECT 0.1 mg/dL (0.0-0.2); BILIRUBIN,TOTAL 0.4 mg/dL (0.2-1.0); CALCIUM, SERUM 10.1 mg/dL (8.5-10.1); CARBON DIOXIDE 30 mmol/L (21-32); CHLORIDE 101 mmol/L (98-107); CREATININE 1.3 mg/dL (0.6-1.3); GLUCOSE 115 mg/dL (74-106); POTASSIUM 3.5 mmol/L (3.5-5.1); SALICYLATE 3.7 mg/dL (2.8-20.0); SODIUM SERUM 140 mmol/L (136-145); TOTAL PROTEIN, SERUM 8.7 g/dL (6.4-8.2); UREA NITROGEN, BLOOD 12 mg/dL (7-18)
[2020-08-10 19:23] LABS: ACETAMINOPHEN < 10 ug/ml (10-30)
--- NOTE | 2020-08-10 20:30 | NUR ---
PT RESTING COMFORTABLY IN BED. VSS. NO ACUTE DISTRESS NOTED. PT CONNECTED TO THE MONITOR AND POX. CALL LIGHT WITHIN REACH. SITTER AT BEDSIDE FOR SAFETY.
--- NOTE | 2020-08-10 21:00 | NUR ---
CLINICAL FAXED TO [facility] FOR VOLUNTARY ADMISSION.
--- NOTE | 2020-08-10 23:54 | NUR ---
[facility] CALLED FOR TRANSPORT RESERVATION [phone].
--- NOTE | 2020-08-11 00:18 | NUR ---
accepted at [facility] dr reynoso unit 201 ext [phone]
--- NOTE | 2020-08-11 00:30 | NUR ---
REPROT GIVEN TO LAMONT RAGSDALE [facility] FOR AMY
[2020-08-11 00:44] VITALS: BP 126/89
--- NOTE | 2020-08-11 00:50 | NUR ---
[facility] CALLED TO FOLLOW UP REGARDING TRANSPORT RESERVATION [phone]. WILL CALL BACK WITH PER.
--- NOTE | 2020-08-11 00:52 | NUR ---
ETA 90 MINS [facility]
--- NOTE | 2020-08-11 02:49 | NUR ---
REPORT GIVEN TO EMS, [facility]. PT STABLE FOR TRANSFER
== END 2020-08-11 03:25 ==
LOC: ER 17:10
DX: R45.851 Suicidal ideations (principal); F10.10 Alcohol abuse, uncomplicated; D64.9 Anemia, unspecified; I10 Essential (primary) hypertension; G40.909 Epilepsy, unspecified, not intractable, without status epilepticus; F20.9 Schizophrenia, unspecified; F32.9 Major depressive disorder, single episode, unspecified; Y90.5 Blood alcohol level of 100-119 mg/100 ml; Z59.0 Homelessness
CPT/HCPCS: 36415; 80048; 80076; 80305; 80307 ×2; 80329; 81001; 85025; 99285; G0480; 81000-TC

== ENCOUNTER 2020-10-03 07:42 | Emergency (ER) | payer MEDICAID ==
[~2020-10-03] VITALS: Ht 167.6 cm; Wt 95.3 kg
--- NOTE | 2020-10-03 07:42 | NUR ---
PT BIB SELF C/O SI "I WANT TO RUN THRU TRAFFIC" PT IS AAOX4, NOT IN RESPIRATORY DISTRESS, V/S STABLE, KEPT RESTED AND COMFORTABLE. SITTER AT BEDSIDE. WILL CONTINUE TO MONITOR.
--- NOTE | 2020-10-03 07:51 | NUR ---
PT SEEN AND EXAMINED BY .
--- NOTE | 2020-10-03 07:56 | NUR ---
ER PHLEB AT BEDSIDE FOR BLOOD DRAW.
--- NOTE | 2020-10-03 07:58 | NUR ---
SECURITY AT BEDSIDE FOR WANDING.
--- NOTE | 2020-10-03 08:05 | NUR ---
COVID SPECIMEN OBTAINED AND SENT TO LAB.
[2020-10-03 08:16] LABS: BASOPHILS # (AUTO) 0.1 /CMM (0.0-0.2); BASOPHILS % (AUTO) 1.1 % (0.0-2.0); HEMATOCRIT 40 % (39-51); HEMOGLOBIN 13.1 g/dL (13.5-17.5); LYMPHOCYTES # (AUTO) 1.5 /CMM (0.8-4.8); LYMPHOCYTES % (AUTO) 12.8 % (20.0-44.0); MEAN CORPUSCULAR HGB CONC 33 g/dl (31.0-36.0); MEAN CORPUSCULAR VOLUME 86 fL (80-96); MONOCYTES # (AUTO) 1.1 /CMM (0.1-1.30); MONOCYTES % (AUTO) 9.5 % (2.0-12.0); NEUTROPHILS # (AUTO) 9.2 /CMM (1.8-8.9); NEUTROPHILS % (AUTO) 76.6 % (43.0-81.0); PLATELET COUNT (AUTO) 287 /CMM (150-450); RED BLOOD CELL COUNT(AUTO) 4.63 MIL/uL (4.5-6.0)
--- NOTE | 2020-10-03 08:22 | NUR ---
FOOD TRAY PROVIDED.
[2020-10-03 08:34] LABS: ALBUMIN 4.1 g/dL (3.4-5.0); BILIRUBIN,DIRECT 0.1 mg/dL (0.0-0.2); BILIRUBIN,TOTAL 0.5 mg/dL (0.2-1.0); CALCIUM, SERUM 9.7 mg/dL (8.5-10.1); CREATININE 1.4 mg/dL (0.6-1.3); POTASSIUM 3.4 mmol/L (3.5-5.1)
[2020-10-03 08:47] LABS: APPEARANCE,URINE Clear (CLEAR); BILIRUBIN,URINE Negative (NEGATIVE); BLOOD, URINE Large Ery/uL (NEGATIVE); COLOR,URINE Yellow (YELLOW); LEUKOCYTE ESTERASE ,URINE Negative (NEGATIVE); NITRITE, URINE Negative (NEGATIVE); PH,URINE 5.5 (5.0-8.0); PROTEIN,URINE >=300 mg/dl (NEGATIVE); UGLUCOSE Negative (NEGATIVE); UROBILINOGEN,URINE 0.2 EU/dL (0.2)
--- NOTE | 2020-10-03 09:03 | NUR ---
CALLED SW TO COME SPEAK TO PT
[2020-10-03 09:09] LABS: BACTERIA,URINE Few /HPF (None Seen); SQUAMOUS EPITHELIAL CELL,UR Few /HPF (None Seen)
--- NOTE | 2020-10-03 09:39 | NUR ---
DARIUS faxed clinical[facility] for patient's request of voluntary psychiatric treatment.
--- NOTE | 2020-10-03 09:45 | NUR ---
SW AT BEDSIDE FOR EVAL.
--- NOTE | 2020-10-03 11:21 | NUR ---
This SW received a call from Felicia at [facility] Intake . Per Felicia, patient has been accepted to [place] location [address] [place] [address] Pedraza. Plan: ED RN to call to nursing water control supervisor Deo (unit 2) to provide report. Addendum: 10/03/20 at 1125 by HORACE MCCOY Correction: ED RN to call to nursing water control supervisor Deo (unit 2) to provide report
--- NOTE | 2020-10-03 11:25 | NUR ---
[facility] CALL REPORT TO [facility] UNIT 2 CALL REPORT TO [phone]
--- NOTE | 2020-10-03 11:27 | NUR ---
Cable Rigger met with the patient at bedside in the ED. Patient is a 55-year-old male. Patient presented to the ED with suicidal ideation. Patient was receptive to speaking with this SW. Patient is alert and oriented x4. Patient was watching television when this SW approached, patient turned television off, and sat up in the bed to make direct eye contact with this SW. Patient was able to confirm demographics including date of and social security number. Patient informed this SW that patient is homeless, however patient stated that his cousin Mark Bhatia allows the patient to stay in his home. Patient reports to this SW that previous resources given to him including year-round shelters have been useful for when the patient cannot stay with Jason. Patient reports that he drinks 1 pints of vodka every other day. Patient reports smoking marijuana every other day. Patient reports that he receives SSI approximately $896 a month. Patient reports that he has had suicidal ideations in the past, and that he is also having current suicidal ideations. Patient stated that his current plan is to run into traffic. Patient denies homicidal ideation. Patient denies auditory and visual hallucinations. Patient reports that he is currently taking Seroquel and Zoloft and would also like his medications to be adjusted. Patient and SW discussed patient treatment plan and patient would like to move forward with voluntary psychiatric hospitalization. This SW faxed clinicals to Jhonny at [facility] Intake, fax number . PLAN: This sr. social media & mobile manager will wait to hear back from [facility] intake regarding status of referral. This sr. social media & mobile manager will follow-up with [facility] if status update is not provided.
[2020-10-03] MEDS ORDERED: SERT100T12 PO (11:29)
[2020-10-03] MEDS ORDERED: HYDR25TA4 PO (11:29)
[2020-10-03] MEDS ORDERED: LEVE500T20 PO (11:29)
[2020-10-03] MEDS ORDERED: QUET400T PO (11:29)
--- NOTE | 2020-10-03 11:29 | NUR ---
REPORT GIVEN TO LAMONT MOLINA OF [facility] FOR AMY.
[2020-10-03] MEDS ORDERED: LEVETIRACETAM (250 MG) 250 MG TABLET PO ONE ×2 (11:33→17:00)
--- NOTE | 2020-10-03 11:38 | NUR ---
CALLED [facility] FOR A BLS CENTRAL OFFICE FRAME WIRER. RES # [id number]
--- NOTE | 2020-10-03 11:52 | NUR ---
[facility] ETA 1339
--- NOTE | 2020-10-03 14:16 | NUR ---
CALLED [facility]. PER DISPATCHER, TRANSPORT IS ABOUT 15 MIN AWAY
--- NOTE | 2020-10-03 14:45 | NUR ---
REPORT GIVEN TO EMS FOR PT TRANSFER TO [facility].
[2020-10-03 14:51] VITALS: BP 135/78
== END 2020-10-03 14:56 ==
LOC: ER 07:46
DX: R45.851 Suicidal ideations (principal); Z59.0 Homelessness; I10 Essential (primary) hypertension; Z86.69 Personal history of other diseases of the nervous system and sense organs; Z20.828 Contact with and (suspected) exposure to other viral communicable diseases
CPT/HCPCS: 36415; 80048; 80076; 80299; 80307; 80320; 81001; 85025; 87426; 99285; C9803; 81000-TC; G0480

== ENCOUNTER 2020-10-13 02:44 | Emergency (ER) | payer MEDICAID ==
[~2020-10-13] VITALS: Ht 167.6 cm; Wt 99.8 kg
[~2020-10-13 02:44] MED LIST changes: -FOLIC ACID 1 MG TABLET PO ONE; +HYDR25TA4 PO; -HYDROCHLOROTHIAZIDE 25 MG TABLET ONE; -HYDROCHLOROTHIAZIDE 25 MG TABLET PO ONE; -IV NS 0.9% 1,000 ML BAG IV ONE; +LEVE500T20 PO; +QUET400T PO; +SERT100T12 PO; -THIAMINE HCL 100 MG TABLET PO ONE
--- NOTE | 2020-10-13 02:55 | NUR ---
URINE COLLECTED AND SENT TO LAB
--- NOTE | 2020-10-13 03:03 | NUR ---
Note adenikeitalo in EDM - 10/13/20 at 0306 by MAKAYLA PT CAME TO THE ER FROM HOME C/O DEPRESSION AND SI W/ A PLAN TO RUN INTO TRAFFIC. PT AAOX4, VSS, RESPIRATIONS EVEN AND UNLABORED ON RA W/ NAD NOTED. PT CHANGED INTO GOWN, SUICIDE PRECAUTIONS IMPLEMENTED, SITTER AT BEDSIDE FOR SAFETY. PT CONNECTED TO THE MONITOR AND POX
--- NOTE | 2020-10-13 03:03 | NUR ---
PT CAME TO THE ER FROM HOME C/O SI W/ A PLAN TO RUN INTO TRAFFIC. PT DENIES HI. PT AAOX4, VSS, RESPIRATIONS EVEN AND UNLABORED ON RA W/ NAD NOTED. PT CHANGED INTO GOWN,BELONGINGS PLACED TO LOCKER SUICIDE PRECAUTIONS IMPLEMENTED, SITTER AT BEDSIDE FOR SAFETY. PT CONNECTED TO THE MONITOR AND POX
--- NOTE | 2020-10-13 03:05 | NUR ---
[facility]ICARE BILLER AT BEDSIDE FOR BLOOD DRAW
[2020-10-13 03:13] LABS: BILIRUBIN,URINE NEGATIVE (NEGATIVE); BLOOD, URINE TRACE-INTA Ery/uL (NEGATIVE); COLOR,URINE YELLOW (YELLOW); LEUKOCYTE ESTERASE ,URINE NEGATIVE (NEGATIVE); NITRITE, URINE NEGATIVE (NEGATIVE); PH,URINE 5.5 (5.0-8.0); PROTEIN,URINE NEGATIVE (NEGATIVE); UGLUCOSE NEGATIVE (NEGATIVE); UROBILINOGEN,URINE 0.2 EU/dL (0.2)
[2020-10-13 03:15] LABS: BASOPHILS % (AUTO) 0.4 % (0.0-2.0); EOSINOPHILS % (AUTO) 1.7 % (0.0-6.0); HEMATOCRIT 37 % (39-51); HEMOGLOBIN 12.2 g/dL (13.5-17.5); LYMPHOCYTES # (AUTO) 2.3 /CMM (0.8-4.8); LYMPHOCYTES % (AUTO) 39.5 % (20.0-44.0); MEAN CORPUSCULAR HGB CONC 33 g/dl (31.0-36.0); MEAN CORPUSCULAR VOLUME 86 fL (80-96); MONOCYTES # (AUTO) 0.4 /CMM (0.1-1.30); MONOCYTES % (AUTO) 7.3 % (2.0-12.0); NEUTROPHILS # (AUTO) 2.9 /CMM (1.8-8.9); NEUTROPHILS % (AUTO) 51.1 % (43.0-81.0); PLATELET COUNT (AUTO) 327 /CMM (150-450); RED BLOOD CELL COUNT(AUTO) 4.32 MIL/uL (4.5-6.0); WHITE BLOOD COUNT (AUTO) 5.7 K/uL (4.3-11.0)
[2020-10-13 03:39] LABS: ACETAMINOPHEN < 2 ug/ml (10-30); ALANINE AMINOTRANSFERASE 20 U/L (12-78); ALBUMIN 3.8 g/dL (3.4-5.0); ALKALINE PHOSPHATASE 77 U/L (46-116); ASPARTATE AMINOTRANSFERASE 22 U/L (15-37); BILIRUBIN,TOTAL 0.2 mg/dL (0.2-1.0); CALCIUM, SERUM 10.1 mg/dL (8.5-10.1); CARBON DIOXIDE 30 mmol/L (21-32); CHLORIDE 100 mmol/L (98-107); CREATININE 2.2 mg/dL (0.6-1.3); GLUCOSE 103 mg/dL (74-106); POTASSIUM 4.2 mmol/L (3.5-5.1); SODIUM SERUM 142 mmol/L (136-145); UREA NITROGEN, BLOOD 52 mg/dL (7-18)
[2020-10-13 03:47] LABS: ALCOHOL, BLOOD 191 mg/dL (0-0)
[2020-10-13 03:58] LABS: BACTERIA,URINE None seen /HPF (None Seen); RBC,URINE 0-2 /HPF (0-2); SQUAMOUS EPITHELIAL CELL,UR Moderate /HPF (None Seen); URINE AMORPHOUS URATE Few /HPF (None Seen)
--- NOTE | 2020-10-13 06:25 | NUR ---
PT RESTING COMFORTABLY IN BED. VSS. NO ACUTE DISTRESS NOTED.
--- NOTE | 2020-10-13 09:36 | NUR ---
ACCEPTED AT [facility] UNDER [facility] MARGO/PATRIA, REPORT TO [phone]
--- NOTE | 2020-10-13 09:57 | NUR ---
REPORT GIVEN TO DARION MIGUEL AT [facility].
--- NOTE | 2020-10-13 09:59 | NUR ---
[facility]. NO ETA PROVIDED. WILL CALL BACK FOR ETA. RESERVATION NUMBER [id number].
--- NOTE | 2020-10-13 10:02 | NUR ---
[facility] ETA 1130.
--- NOTE | 2020-10-13 12:40 | NUR ---
[facility] UPDATED ETA 1300
--- NOTE | 2020-10-13 13:30 | NUR ---
PATIENT TRANSFERRED TO [facility], IN STABLE CONDITION.
--- NOTE | 2020-10-13 14:32 | NUR ---
Late Entry: 8:45am Regional Sales Coordinator met with the patient at bedside in the ED. Patient is a 55-year-old male. Patient presented to the ED with suicidal ideation. Patient was receptive to speaking with this SW. Regional Sales Coordinator consult requested by ED RN Sabina. Patient is alert and oriented x4. Patient sat up in the bed to make direct eye contact with this SW for this assessment. Patient informed this SW that patient is homeless, however patient stated that his cousin Mark Bhatia allows the patient to stay in his home. Patient reports to this SW that previous resources given to him including year-round shelters have been useful for when the patient cannot stay with Jason. SW offered a copy of homeless resources, patient declined these resources. Patient reports that he drinks 1 pints of vodka every other day. Patient reports smoking marijuana every other day. Patient reports that he receives SSI approximately $896 a month. Patient reports that he has had suicidal ideations in the past, and that he is also having current suicidal ideations. Patient stated that his current plan is to run into traffic. Patient denies homicidal ideation. Patient denies auditory and visual hallucinations. Patient reports that he is currently taking Seroquel and Zoloft however patient reported wanting a readjustment to his medications. Patient and SW discussed patient treatment plan and patient would like to move forward with voluntary psychiatric hospitalization. This SW offered a referral [facility], patient declined this referral and patient notified this SW that he would like to be referred to [facility]. Patient reported that he has been referred there in the past and patient would like his care to be continued at [facility]. This SW acknowledged this patients request and will refer the patient to [facility]. Patient was calm and cooperative with this SW. Patient thought process was clear and concise. Patients speech is soft and clear. Patient appeared to be well-groomed and made appropriate eye contact throughout assessment. Plan: This SW to fax clinicals to Jhonny (cell) at [facility] Intake, fax number . This director of social services will wait to hear back from [facility] intake regarding status of referral. This director of social services will follow-up with [facility] if status update is not provided. Once accepted, patient to be transferred to [facility] by ambulance.
[2020-10-13 14:36] VITALS: BP 121/76
== END 2020-10-13 14:37 ==
LOC: ER 02:51
DX: R45.851 Suicidal ideations (principal); F10.129 Alcohol abuse with intoxication, unspecified; Y90.6 Blood alcohol level of 120-199 mg/100 ml; I10 Essential (primary) hypertension; Z59.0 Homelessness; F17.200 Nicotine dependence, unspecified, uncomplicated; F32.9 Major depressive disorder, single episode, unspecified; Z79.899 Other long term (current) drug therapy; Z86.69 Personal history of other diseases of the nervous system and sense organs; Z20.828 Contact with and (suspected) exposure to other viral communicable diseases
CPT/HCPCS: 36415; 80048; 80076; 80299; 80307; 80320 ×2; 81001; 85025; 87426; 99285; C9803; G0480

== ENCOUNTER 2020-11-04 17:37 | Emergency (ER) | payer MEDICAID ==
[~2020-11-04] VITALS: Ht 167.6 cm; Wt 79.4 kg
--- NOTE | 2020-11-04 19:10 | NUR ---
PT SENT FROM PSYCH EVAL FOR SI W/ A PLAN TO RUN INTO TRAFFIC. PT DENIES HI. PT AAOX4, VSS, RESPIRATIONS EVEN AND UNLABORED ON RA W/ NAD NOTED. PT CHANGED INTO GOWN, BELONGINGS PLACED TO LOCKER. SUICIDE PRECAUTIONS IMPLEMENTED. 1:1 SITTER AT BEDSIDE FOR SAFETY.
[2020-11-04 19:26] LABS: CALCIUM, SERUM 9.1 mg/dL (8.5-10.1); CREATININE 1.1 mg/dL (0.6-1.3); POTASSIUM 3.4 mmol/L (3.5-5.1)
[2020-11-04 19:33] LABS: BASOPHILS % (AUTO) 0.4 % (0.0-2.0); EOSINOPHILS % (AUTO) 0.6 % (0.0-6.0); HEMATOCRIT 36 % (39-51); HEMOGLOBIN 11.9 g/dL (13.5-17.5); LYMPHOCYTES % (AUTO) 46.8 % (20.0-44.0); MEAN CORPUSCULAR HGB CONC 33 g/dl (31.0-36.0); MEAN CORPUSCULAR VOLUME 87 fL (80-96); MONOCYTES # (AUTO) 0.5 /CMM (0.1-1.30); MONOCYTES % (AUTO) 11.7 % (2.0-12.0); NEUTROPHILS # (AUTO) 1.7 /CMM (1.8-8.9); NEUTROPHILS % (AUTO) 40.5 % (43.0-81.0); PLATELET COUNT (AUTO) 210 /CMM (150-450); RED BLOOD CELL COUNT(AUTO) 4.18 MIL/uL (4.5-6.0); WHITE BLOOD COUNT (AUTO) 4.2 K/uL (4.3-11.0)
[2020-11-04 19:35] LABS: ALBUMIN 3.5 g/dL (3.4-5.0); BILIRUBIN,DIRECT 0.1 mg/dL (0.0-0.2); BILIRUBIN,TOTAL 0.3 mg/dL (0.2-1.0)
[2020-11-04 22:13] LABS: BILIRUBIN,URINE NEGATIVE (NEGATIVE); BLOOD, URINE SMALL Ery/uL (NEGATIVE); COLOR,URINE YELLOW (YELLOW); LEUKOCYTE ESTERASE ,URINE NEGATIVE (NEGATIVE); NITRITE, URINE NEGATIVE (NEGATIVE); PROTEIN,URINE 30 mg/dl (NEGATIVE); UGLUCOSE NEGATIVE (NEGATIVE); UROBILINOGEN,URINE 0.2 EU/dL (0.2)
[2020-11-04 22:53] LABS: BACTERIA,URINE None seen /HPF (None Seen); RBC,URINE 0-2 /HPF (0-2); SQUAMOUS EPITHELIAL CELL,UR Moderate /HPF (None Seen); WBC,URINE 0-2 /HPF (0-3)
--- NOTE | 2020-11-05 00:48 | NUR ---
COVID SWAB COLLECTED AND SENT TO THE LAB.
--- NOTE | 2020-11-05 05:37 | NUR ---
Patient is resting comfortably in bed with eyes closed. Easily aroused. VSS
--- NOTE | 2020-11-05 06:51 | NUR ---
PT ASLEEP. VSS. SITTER AT BEDSIDE FOR SAFETY. WILL CONTINUE TO MONITOR
--- NOTE | 2020-11-05 07:30 | NUR ---
ASSESSED PT ON BED AWAKE, AAOX4, NOT IN RESPIRATORY DISTRESS, V/S STABLE, KEPT RESTED AND COMFORTABLE. WILL CONTINUE TO MONITOR.
[2020-11-05] MEDS ORDERED: HYDROCHLOROTHIAZIDE 25 MG TABLET ONE (09:04)
[2020-11-05] MEDS ORDERED: HYDROCHLOROTHIAZIDE 25 MG TABLET PO ONE (09:30)
--- NOTE | 2020-11-05 14:57 | NUR ---
CALLED [facility] [phone] WILL CALL US WITH A BED.
--- NOTE | 2020-11-05 16:04 | NUR ---
DR. CUR[facility] PHONE- [phone]
--- NOTE | 2020-11-05 16:06 | NUR ---
REPORT GIVEN TO DARION MIGUEL.
--- NOTE | 2020-11-05 16:09 | NUR ---
CALLED TRANSPORT ETA 1800 ISIDRO GODFREY
[2020-11-05] MEDS ORDERED: LEVETIRACETAM (250 MG) 250 MG TABLET PO ONE ×2 (17:26→17:30)
--- NOTE | 2020-11-05 18:18 | NUR ---
REPORT GIVEN TO EMT FOR PT TRANSFER TO [facility].
--- NOTE | 2020-11-05 18:22 | NUR ---
PATIENT REFUSING TO GO TO [facility], DENIES SI/HI AT THIS TIME. PATIENT WANTS TO BE DISCHARGED HOME.
--- NOTE | 2020-11-05 18:44 | NUR ---
Patient given written and verbal discharge instructions. Patient verbalizes understanding of instructions. Patient is ambulatory with steady gait. Refuses offer of group home placement. Patient given list of available shelters in surrounding area.
[2020-11-05 18:45] VITALS: BP 135/73
== END 2020-11-05 18:47 | disposition home or self-care (01) ==
LOC: ER 17:40
DX: R45.851 Suicidal ideations (principal); F10.129 Alcohol abuse with intoxication, unspecified; Y90.8 Blood alcohol level of 240 mg/100 ml or more; I10 Essential (primary) hypertension; F32.9 Major depressive disorder, single episode, unspecified; G40.909 Epilepsy, unspecified, not intractable, without status epilepticus; Z79.899 Other long term (current) drug therapy; Z59.0 Homelessness; Z20.828 Contact with and (suspected) exposure to other viral communicable diseases
CPT/HCPCS: 36415 ×2; 80048; 80076; 80299; 80307; 80320 ×3; 81001; 85025; 87426; 99285; C9803; G0480

== ENCOUNTER 2020-11-12 15:37 | Emergency (ER) | payer MEDICAID ==
[~2020-11-12] VITALS: Ht 165.1 cm; Wt 96.2 kg
--- NOTE | 2020-11-12 17:14 | NUR ---
PT C/O SI " I RUN INTO TRAFFIC " -HI, TO ER BED 14, HOOKED TO MONITOR. VSS. CHANGED TO HOSP GOWN, WARM BLANKET PROVIDED, PATIENT AAO x 4. BREATHING EVEN AND UNLABORED. SITTER AT BEDSIDE FOR SAFETY. AWAITING MD BARTLETT
--- NOTE | 2020-11-12 17:15 | NUR ---
GADIEL MOON AT BEDSIDE
[2020-11-12] MEDS ORDERED: IBUPROFEN 600 MG TABLET PO ONE (17:30)
[2020-11-12] MEDS ORDERED: IBUPROFEN 600 MG TABLET ONE (17:50)
--- NOTE | 2020-11-12 17:53 | NUR ---
RAPID COVID SWAB DONE AND SENT TO LAB
[2020-11-12 17:58] LABS: BASOPHILS % (AUTO) 0.6 % (0.0-2.0); EOSINOPHILS % (AUTO) 0.4 % (0.0-6.0); HEMATOCRIT 39 % (39-51); HEMOGLOBIN 12.9 g/dL (13.5-17.5); LYMPHOCYTES # (AUTO) 2.4 /CMM (0.8-4.8); LYMPHOCYTES % (AUTO) 41.5 % (20.0-44.0); MEAN CORPUSCULAR HGB CONC 33 g/dl (31.0-36.0); MEAN CORPUSCULAR VOLUME 88 fL (80-96); MONOCYTES # (AUTO) 0.4 /CMM (0.1-1.30); MONOCYTES % (AUTO) 6.4 % (2.0-12.0); NEUTROPHILS % (AUTO) 51.1 % (43.0-81.0); PLATELET COUNT (AUTO) 282 /CMM (150-450); RED BLOOD CELL COUNT(AUTO) 4.39 MIL/uL (4.5-6.0); WHITE BLOOD COUNT (AUTO) 5.9 K/uL (4.3-11.0)
[2020-11-12 18:26] LABS: ALBUMIN 3.6 g/dL (3.4-5.0); BILIRUBIN,DIRECT 0.1 mg/dL (0.0-0.2); BILIRUBIN,TOTAL 0.1 mg/dL (0.2-1.0); CALCIUM, SERUM 9.7 mg/dL (8.5-10.1); CREATININE 1.3 mg/dL (0.6-1.3); POTASSIUM 3.4 mmol/L (3.5-5.1); TOTAL PROTEIN, SERUM 9.5 g/dL (6.4-8.2)
--- NOTE | 2020-11-12 18:50 | NUR ---
URINE SAMPLE COLLECTED AND SENT TO LAB
--- NOTE | 2020-11-12 18:52 | NUR ---
SPOKE TO PT REGARDING PROVIDING A URINE SAMPLE.
--- NOTE | 2020-11-12 19:09 | NUR ---
PATIENT IN BED AWAKE, HOOKED TO MONITOR. VSS. SITTER AT BEDSIDE FOR SAFETY
[2020-11-12 19:10] LABS: BILIRUBIN,URINE Negative (NEGATIVE); BLOOD, URINE Small Ery/uL (NEGATIVE); COLOR,URINE YELLOW (YELLOW); LEUKOCYTE ESTERASE ,URINE Negative (NEGATIVE); NITRITE, URINE Negative (NEGATIVE); PH,URINE 5.5 (5.0-8.0); PROTEIN,URINE 100 mg/dl (NEGATIVE); UGLUCOSE Negative (NEGATIVE); UROBILINOGEN,URINE 0.2 EU/dL (0.2)
--- NOTE | 2020-11-12 20:25 | NUR ---
PT AAOX4, VSS, RESPIRATIONS EVEN AND UNLABORED ON RA W/ NAD NOTED. PT CONNECTED TO THE UPHOLSTERY TECH AND POX. 1:1 SITTER AT BEDSIDE FOR SAFETY
[2020-11-12 20:41] LABS: BACTERIA,URINE Few /HPF (None Seen); MUCUS,URINE Rare /LPF (None Seen); SQUAMOUS EPITHELIAL CELL,UR Moderate /HPF (None Seen); WBC,URINE 0-2 /HPF (0-3)
--- NOTE | 2020-11-13 02:54 | NUR ---
PT ON MONITOR AND PULSE OX. VSS.
--- NOTE | 2020-11-13 05:46 | NUR ---
PT ASLEEP, VSS.
--- NOTE | 2020-11-13 06:48 | NUR ---
PT RESTING IN BED, WATCHING TV.
--- NOTE | 2020-11-13 07:36 | NUR ---
PATIENT IN BED AWAKE, HOOKED TO MONITOR. VSS. WILL CONTINUE TO MONITOR ACCORDINGLY. SITTER AT BEDSIDE FOR SAFETY
--- NOTE | 2020-11-13 08:56 | NUR ---
BREAKFAST TRAY PROVIDED. DOES NOT WANT TO EAT AT THIS TIME. FOOD TRAY PLACED AT BEDSIDE
--- NOTE | 2020-11-13 09:56 | NUR ---
SITTER AT BEDSIDE FOR SAFETY
--- NOTE | 2020-11-13 10:42 | NUR ---
PATIENT IN BED AWAKE, HOOKED TO MONITOR. VSS. WILL CONTINUE TO MONITOR ACCORDINGLY
--- NOTE | 2020-11-13 11:22 | NUR ---
SITTER AT BEDSIDE FOR SAFETY
--- NOTE | 2020-11-13 12:26 | NUR ---
LUNCH TRAY PROVIDED. TOLERATING PO WELL
--- NOTE | 2020-11-13 14:56 | NUR ---
PATIENT IN BED AWAKE, HOOKED TO MONITOR. VSS. WILL CONTINUE TO MONITOR ACCORDINGLY
--- NOTE | 2020-11-13 15:33 | NUR ---
CALLED [facility] TO FOLLOW UP ON PATIENT STATUS OF ADMISSION. PT ACCEPTED TO [facility] UNDER THE CARE OF DR. BUENROSTRO. PT WILL BE GOING TO UNIT 1 ROOM NUMBER [id number]-A. NUMBER FOR REPORT. [phone], ASK EDGING MACHINE SETTER TO TRANSFER TO UNIT 1.
--- NOTE | 2020-11-13 15:45 | NUR ---
CALLED [facility] FOR TRANSPORT TO [facility]. [facility] NUMBER [id number]. WILL CALL BACK WITH ETA AND TRANSPORT INFO.
--- NOTE | 2020-11-13 18:17 | NUR ---
PATIENT IN BED AWAKE, HOOKED TO MIONITOR. VSS. WILL CONTINUE TO MONITOR ACCORDINGLY
[2020-11-13 18:50] VITALS: BP 146/84
--- NOTE | 2020-11-13 19:39 | NUR ---
CALLED [facility]HAEL FOR TRANSFER TO [facility] 2200. TRIP NUMBER [id number].
--- NOTE | 2020-11-13 19:44 | NUR ---
[facility] at bedside for transport to [facility]
--- NOTE | 2020-11-13 19:51 | NUR ---
REPORT GIVEN TO IRMA MIGUEL FOR AMY
--- NOTE | 2020-11-13 20:12 | NUR ---
PT TRANSFERED TO [facility]
== END 2020-11-13 20:13 ==
LOC: ER 15:40
DX: R45.851 Suicidal ideations (principal); F32.9 Major depressive disorder, single episode, unspecified; Z59.0 Homelessness; D64.9 Anemia, unspecified; Z20.828 Contact with and (suspected) exposure to other viral communicable diseases; G40.909 Epilepsy, unspecified, not intractable, without status epilepticus; Z79.899 Other long term (current) drug therapy; F10.129 Alcohol abuse with intoxication, unspecified; Y90.8 Blood alcohol level of 240 mg/100 ml or more
CPT/HCPCS: 36415 ×2; 80048; 80076; 80299; 80307; 80320 ×3; 81001; 85025; 87426; 99285; C9803; G0480

== ENCOUNTER 2020-11-22 20:52 | Emergency (ER) | payer MEDICAID ==
[~2020-11-22] VITALS: Ht 165.1 cm; Wt 90.7 kg
--- NOTE | 2020-11-23 03:46 | NUR ---
TO ER BED 15 AMBULATORY C/O SI W/ A PLAN TO RUN INTO TRAFFIC. PT DENIES HI. PT REQUESTING VOLUNTARY ADMISSION. PT CALM AND COOPERATIVE AT THIS TIME. PLACE PT ON HOSPITAL GOWN, ALL BELONGINGS REMOVED, 1:1 SITTER AT BEDSIDE. WILL CONTINUE TO MONITOR PT CLOSELY.
--- NOTE | 2020-11-23 04:36 | NUR ---
URINE SAMPLE COLLECTED AND SENT TO LAB.
--- NOTE | 2020-11-23 04:41 | NUR ---
MONOTYPIST AT [facility] FOR BLOOD DRAW.
[2020-11-23 04:58] LABS: BASOPHILS % (AUTO) 0.9 % (0.0-2.0); EOSINOPHILS % (AUTO) 1.1 % (0.0-6.0); HEMATOCRIT 38 % (39-51); HEMOGLOBIN 12.5 g/dL (13.5-17.5); LYMPHOCYTES # (AUTO) 2.3 /CMM (0.8-4.8); LYMPHOCYTES % (AUTO) 46.7 % (20.0-44.0); MEAN CORPUSCULAR HGB CONC 33 g/dl (31.0-36.0); MEAN CORPUSCULAR VOLUME 88 fL (80-96); MONOCYTES # (AUTO) 0.4 /CMM (0.1-1.30); MONOCYTES % (AUTO) 7.8 % (2.0-12.0); NEUTROPHILS # (AUTO) 2.2 /CMM (1.8-8.9); NEUTROPHILS % (AUTO) 43.5 % (43.0-81.0); PLATELET COUNT (AUTO) 333 /CMM (150-450); RED BLOOD CELL COUNT(AUTO) 4.37 MIL/uL (4.5-6.0)
[2020-11-23 04:58] LABS: BILIRUBIN,URINE NEGATIVE (NEGATIVE); BLOOD, URINE SMALL Ery/uL (NEGATIVE); COLOR,URINE YELLOW (YELLOW); LEUKOCYTE ESTERASE ,URINE NEGATIVE (NEGATIVE); NITRITE, URINE NEGATIVE (NEGATIVE); PH,URINE 5.5 (5.0-8.0); PROTEIN,URINE 100 mg/dl (NEGATIVE); UGLUCOSE NEGATIVE (NEGATIVE); UROBILINOGEN,URINE 0.2 EU/dL (0.2)
[2020-11-23 05:07] LABS: BACTERIA,URINE Few /HPF (None Seen); RBC,URINE 0-2 /HPF (0-2); SQUAMOUS EPITHELIAL CELL,UR Few /HPF (None Seen)
[2020-11-23 05:11] LABS: ALANINE AMINOTRANSFERASE 43 U/L (12-78); ALBUMIN 3.7 g/dL (3.4-5.0); ALCOHOL, BLOOD 247 mg/dL (0-0); ALKALINE PHOSPHATASE 79 U/L (46-116); ASPARTATE AMINOTRANSFERASE 38 U/L (15-37); BILIRUBIN,DIRECT 0.1 mg/dL (0.0-0.2); BILIRUBIN,TOTAL 0.2 mg/dL (0.2-1.0); CALCIUM, SERUM 9.5 mg/dL (8.5-10.1); CARBON DIOXIDE 24 mmol/L (21-32); CHLORIDE 109 mmol/L (98-107); CREATININE 1.1 mg/dL (0.6-1.3); GLUCOSE 81 mg/dL (74-106); SODIUM SERUM 149 mmol/L (136-145); TOTAL PROTEIN, SERUM 9.5 g/dL (6.4-8.2); UREA NITROGEN, BLOOD 10 mg/dL (7-18)
[2020-11-23 05:16] LABS: ACETAMINOPHEN < 10 ug/ml (10-30)
[2020-11-23] MEDS ORDERED: LEVETIRACETAM (250 MG) 250 MG TABLET PO ONE ×2 (07:30→07:57)
--- NOTE | 2020-11-23 09:06 | NUR ---
FAXED CLINICALS TO [facility] [phone]
--- NOTE | 2020-11-23 10:49 | NUR ---
CALLED FOR GYPSY
--- NOTE | 2020-11-23 12:12 | NUR ---
Mid Wife met with the patient at bedside in the ED. Patient is a 55-year-old male. Patient presented to the ED with suicidal ideation. Patient was receptive to speaking with this SW. Mid Wife consult requested by ED construction trades teacher Gener. Patient is alert and oriented x4. Patient informed this SW that patient is homeless, however patient stated that his cousin Mark Bhatia allows the patient to stay in his home. Patient reports that he drinks 1 pints of vodka every other day. Patient reports smoking marijuana every other day. Patient reports that he receives SSI approximately $896 a month. Patient reports that he has had suicidal ideations in the past, and that he is also having current suicidal ideations. Patient stated that his current plan is to run into traffic. Patient denies homicidal ideation. Patient denies auditory and visual hallucinations. Patient reports that he is currently taking Seroquel and Zoloft however patient reported wanting a readjustment to his medications. Patient and SW discussed patient treatment plan and patient would like to move forward with voluntary psychiatric hospitalization. This SW offered Patient notified this SW that he would like to be referred to [facility]. This SW acknowledged this patients request and will refer the patient to [facility]. Patient was calm and cooperative with this SW. Patient thought process was clear and concise. Patients speech is soft and clear. Patient appeared to be well-groomed and made appropriate eye contact throughout assessment. Plan: This SW to fax clinicals to Jhonny (cell) at [facility] Intake, fax number . This social media director will wait to hear back from [facility] intake regarding status of referral. This social media director will follow-up with [facility] if status update is not provided. Once accepted, patient to be transferred to [facility] by ambulance.
--- NOTE | 2020-11-23 12:23 | NUR ---
DARIUS spoke with Gisela at [facility] Intake patient's alcohol levels need to be at 120 for the patient to be accepted. DARIUS will refer to ED Team to have labs run again regarding alcohol levels.
--- NOTE | 2020-11-23 12:24 | NUR ---
DARIUS spoke with Dr. Avila and informed him regarding alcohol levels. SW informed assistant controllerEloina Mauro to follow-up regarding alcohol levels with lab. GARY Mauro in agreement and will provide an update to this SW.
--- NOTE | 2020-11-23 14:24 | NUR ---
This SW faxed updated clinicals to [facility] Intake, fax number .
--- NOTE | 2020-11-23 15:42 | NUR ---
MEDICALLY AND PSYCH CLEAERED. DENIES ANY SI AT THIS TIME, STATES WILL STAY AT HIS COUSIN'S HOUSE. DISCHARGE IN STABLE CONDITION.
[2020-11-23 15:43] VITALS: BP 124/82
== END 2020-11-23 15:44 | disposition home or self-care (01) ==
LOC: ER 21:01
DX: R45.851 Suicidal ideations (principal); Z59.0 Homelessness; F19.10 Other psychoactive substance abuse, uncomplicated; I10 Essential (primary) hypertension; Z82.49 Family history of ischemic heart disease and other diseases of the circulatory system; G40.909 Epilepsy, unspecified, not intractable, without status epilepticus; Z20.828 Contact with and (suspected) exposure to other viral communicable diseases; Z79.899 Other long term (current) drug therapy; F10.129 Alcohol abuse with intoxication, unspecified; Y90.8 Blood alcohol level of 240 mg/100 ml or more
CPT/HCPCS: 36415; 80048; 80076; 80299; 80307; 80320 ×3; 81001; 84484; 85025; 87426; 93005; 99285; C9803; G0480

== ENCOUNTER 2020-11-29 15:23 | Emergency (ER) | payer MEDICAID ==
[~2020-11-29] VITALS: Ht 165.1 cm; Wt 90.7 kg
[2020-11-29 16:33] LABS: BILIRUBIN,URINE Negative (NEGATIVE); COLOR,URINE YELLOW (YELLOW); LEUKOCYTE ESTERASE ,URINE Negative (NEGATIVE); NITRITE, URINE Negative (NEGATIVE); PROTEIN,URINE >=300 mg/dl (NEGATIVE); UGLUCOSE Negative (NEGATIVE); UROBILINOGEN,URINE 0.2 EU/dL (0.2)
[2020-11-29 16:34] LABS: BACTERIA,URINE Rare /HPF (None Seen); SQUAMOUS EPITHELIAL CELL,UR Few /HPF (None Seen); WBC,URINE NONE SEEN /HPF (0-3)
[2020-11-29 17:11] LABS: BASOPHILS % (AUTO) 0.7 % (0.0-2.0); EOSINOPHILS % (AUTO) 0.3 % (0.0-6.0); HEMATOCRIT 42 % (39-51); HEMOGLOBIN 13.4 g/dL (13.5-17.5); LYMPHOCYTES # (AUTO) 2.3 /CMM (0.8-4.8); LYMPHOCYTES % (AUTO) 42.8 % (20.0-44.0); MEAN CORPUSCULAR HGB CONC 32 g/dl (31.0-36.0); MEAN CORPUSCULAR VOLUME 88 fL (80-96); MONOCYTES # (AUTO) 0.3 /CMM (0.1-1.30); MONOCYTES % (AUTO) 5.4 % (2.0-12.0); NEUTROPHILS # (AUTO) 2.8 /CMM (1.8-8.9); NEUTROPHILS % (AUTO) 50.8 % (43.0-81.0); PLATELET COUNT (AUTO) 345 /CMM (150-450); WHITE BLOOD COUNT (AUTO) 5.4 K/uL (4.3-11.0)
[2020-11-29 17:42] LABS: ALANINE AMINOTRANSFERASE 56 U/L (12-78); ALBUMIN 3.8 g/dL (3.4-5.0); ALCOHOL, BLOOD 314 mg/dL (0-0); ALKALINE PHOSPHATASE 95 U/L (46-116); ASPARTATE AMINOTRANSFERASE 49 U/L (15-37); BILIRUBIN,DIRECT 0.1 mg/dL (0.0-0.2); BILIRUBIN,TOTAL 0.2 mg/dL (0.2-1.0); CALCIUM, SERUM 9.5 mg/dL (8.5-10.1); CARBON DIOXIDE 27 mmol/L (21-32); CHLORIDE 101 mmol/L (98-107); CREATININE 1.1 mg/dL (0.6-1.3); GLUCOSE 110 mg/dL (74-106); POTASSIUM 3.7 mmol/L (3.5-5.1); SODIUM SERUM 142 mmol/L (136-145); TOTAL PROTEIN, SERUM 10.2 g/dL (6.4-8.2); UREA NITROGEN, BLOOD 11 mg/dL (7-18)
[2020-11-29 17:43] LABS: ACETAMINOPHEN < 2 ug/ml (10-30)
[2020-11-29 19:15] VITALS: BP 146/98
--- NOTE | 2020-11-29 19:16 | NUR ---
ASSU,ED CARE. PT SITTING UP IN BED, NO ACUTE DISTRESS NOTED, RESP EVEN AND UNLABORED. PT DENIES PAIN OR DISCOMFORT AT THIS TIME. PT REPORTS FEELING DEPRESSED, (+) ETOH SMELL. PT CALM AND COOPERATIVE AT THIS TIME.
--- NOTE | 2020-11-29 21:34 | NUR ---
PT ASLEEP, NO ACUTE DISTRESS NOTED, RESP EVEN AND UNLABORED. CALL LIGHT WITHIN REACH WILL CONTINUE TO MONITOR PT.
--- NOTE | 2020-11-29 23:10 | NUR ---
PT AAOX4. PT DENIES PAIN OR DISCOMFORT AT THIS TIME. PT DENIES SI/HI AT THIS TIME. PT STATES "I FEEL BETTER NOW."
--- NOTE | 2020-11-29 23:19 | NUR ---
PT NOT IN ROOM FOR DISCHARGE. PT LEFT WITHOUT ACI.
== END 2020-11-29 23:46 | disposition home or self-care (01) ==
LOC: ER 15:26
DX: R45.851 Suicidal ideations (principal); F10.129 Alcohol abuse with intoxication, unspecified; F32.9 Major depressive disorder, single episode, unspecified; I10 Essential (primary) hypertension; G40.909 Epilepsy, unspecified, not intractable, without status epilepticus; F17.200 Nicotine dependence, unspecified, uncomplicated; Z60.2 Problems related to living alone; Z79.899 Other long term (current) drug therapy; Y90.8 Blood alcohol level of 240 mg/100 ml or more
CPT/HCPCS: 36415; 80048-TC; 80076-TC; 81001; 85025-TC; G0480

== ENCOUNTER 2020-12-27 11:22 | Emergency (ER) | payer MEDICAID ==
[~2020-12-27] VITALS: Ht 165.1 cm; Wt 86.2 kg
--- NOTE | 2020-12-27 11:27 | NUR ---
CAME IN FOR SUICIDAL IDEATION WITH PLAN TO RUN [facility]ROUGH [facility]. REQUESTING ADMISSION TO [facility] Y[facility]. TO ER BED 11, HOOKED TO BP CUFF AND POX. CHANGED TO HOSP GOWN, WARM BLANKET PROVIDED, PATIENT AAO x 3, BREATHING EVEN AND UNLABORED, NAD NOTED. DR VILLEGAS AT BEDSIDE
--- NOTE | 2020-12-27 11:45 | NUR ---
URINE SAMPLE COLLECTED AND SENT TO LAB
[2020-12-27 12:15] LABS: BASOPHILS # (AUTO) 0.1 /CMM (0.0-0.2); BASOPHILS % (AUTO) 1.5 % (0.0-2.0); EOSINOPHILS % (AUTO) 0.6 % (0.0-6.0); HEMATOCRIT 41 % (39-51); HEMOGLOBIN 13.3 g/dL (13.5-17.5); LYMPHOCYTES # (AUTO) 2.5 /CMM (0.8-4.8); LYMPHOCYTES % (AUTO) 46.3 % (20.0-44.0); MEAN CORPUSCULAR HGB CONC 33 g/dl (31.0-36.0); MEAN CORPUSCULAR VOLUME 88 fL (80-96); MONOCYTES # (AUTO) 0.3 /CMM (0.1-1.30); MONOCYTES % (AUTO) 6.4 % (2.0-12.0); NEUTROPHILS # (AUTO) 2.4 /CMM (1.8-8.9); NEUTROPHILS % (AUTO) 45.2 % (43.0-81.0); PLATELET COUNT (AUTO) 356 /CMM (150-450); WHITE BLOOD COUNT (AUTO) 5.3 K/uL (4.3-11.0)
--- NOTE | 2020-12-27 12:16 | NUR ---
SW GIPSY AT BEDSIDE
--- NOTE | 2020-12-27 12:25 | NUR ---
Public Health Sanitarian met with the patient at bedside in the ED. Patient is a 55-year-old Male. Patient presented to the ED per complaints of suicidal ideation. Patients plan is to run into traffic. Patient is alert and oriented x4.Patient stating that he lives with his cousin Mark Bhatia . Patient stated that he feels like he has no support from his family besides his cousin and patient reports he is feeling hopeless. Patient reports that he was at [facility] and was discharged after 9 days and patient remains suicidal. Patient reports that he drinks 1 pint of vodka every other day. Patient reports smoking marijuana every other day. Patient reports that he receives SSI approximately $896 a month. SW and patient discussed voluntary psychiatric hospitalization and patient stated "I want to go to [facility], I have been with them before and they take care of me". Patient asked this SW to provide updates regarding the status of his referral stating "I get anxious that no one is helping me so I want to leave after hours of waiting." Patient's speech is clear and concise. Patient is able to make needs known. Patient looks well-groomed. Patient was provided with a hot meal. Patient has appropriate clothing. Plan:This SW to fax clinicals to [facility] at [phone] and SW to inform Jhonny [phone] regarding this referral. SW remains available for all needs regarding this patient.
[2020-12-27 12:37] LABS: CALCIUM, SERUM 9.9 mg/dL (8.5-10.1); CREATININE 1.3 mg/dL (0.6-1.3); POTASSIUM 3.5 mmol/L (3.5-5.1)
[2020-12-27 12:45] LABS: ALBUMIN 3.8 g/dL (3.4-5.0); BILIRUBIN,DIRECT 0.1 mg/dL (0.0-0.2); BILIRUBIN,TOTAL 0.3 mg/dL (0.2-1.0); TOTAL PROTEIN, SERUM 9.2 g/dL (6.4-8.2)
--- NOTE | 2020-12-27 12:56 | NUR ---
SW faxedclinicals to [facility] Intake at [phone] and informed Jhonny [phone] regarding this referral. DARIUS remains available for all needs regarding this patient.
--- NOTE | 2020-12-27 13:23 | NUR ---
served with food tray. tolerating PO well.
--- NOTE | 2020-12-27 14:26 | NUR ---
lab called pt covid result negative (-)
--- NOTE | 2020-12-27 14:30 | NUR ---
David olivares in [facility] - 12/27/20 at 1519 by GABY MOVE SHEET SUBMITTED AND CALLED FOR ICU BED.
--- NOTE | 2020-12-27 14:45 | NUR ---
SW contacted [facility] regarding status of this referral. SW spoke with Art [phone] regarding this patient. Art informed this SW that patient blood alcohol level is too high, patient alcohol level needs to drop to 100-120. Art would also like an update on COVID test and medical clearance. Plan: SW to refax clinicals with COVID test and medical clearance. SW to follow-up with ED staff regarding blood alcohol level. SW remains available for all needs regarding this patient.
--- NOTE | 2020-12-27 16:12 | NUR ---
PATIENT IN BED ASLEEP, EASILY AROUSABLE BY VOICE. HOOKED TO MONITOR. VSS. WILL CONTINUE TO MONITOR ACCORDINGLY. SITTER AT BEDSIDE FOR SAFETY
--- NOTE | 2020-12-27 16:49 | NUR ---
3:45pm SW informed patient that he has been referred to [facility]. Patient understood and asked how long transfer may take. SW notified patient that it may take a few hours as accepting information needs to come in and transportation needs to be set up. Patient understood. Patient and SW discussed the need for additional resources as patient is living with his cousin. Patient was receptive and stated "sometimes I am on the street so I do not feel like a burden to my cousin, I will take everything you have". Patient also signed homeless waiver form and was placed in patient's chart. SW remains available for all needs regarding this patient. SW gave the following resources to this patient. Substance Abuse resources provided included: [facility] Substance Abuse Self-Helpline ([facility]) ; CRI -HELP [address] [facility]. [place] [address] ; [facility] [address] [facility] [address] ; [facility] [address] [facility] [address] ; [facility] [address] [facility] [address] ; [facility] [address] [facility] [phone] ; [facility] 909 [facility] [phone] ; [facility] Substance Abuse Helpline([facility])-[facility] ; Pending Sale To [facility] ; [facility] Cri-Help [place]; I-ADA Inter Agency Drug Abuse Recovery [place]; [facility] [place]; [place]; [facility], [facility]. [place]; Alcoholics Anonymous -SFV; Er-Myri-Xtxxilo ; Marijuana Anonymous -SFV; Narcotics Anonymous www.na.org. Hygiene: [facility]: [address] [place] ; [place] [facility] [address] [facility] ; [facility] [address] [place] . Food Resources: [place] Food Pant[facility] at [facility]- [address] [place]; Meet Each Need with Dignity ([facility]) [address] [facility] Hospital[facility] [place]; [facility] Food Pantry 2755 [facility]; [facility] 8383 [facility]. Mental Health resources provided: [facility] [address] [place], [place] [phone] ; [facility], Inc[facility] [address] [facility] [address], [place], [place] [phone] ; [facility] [address], [place] [phone] ; [facility] [address] [place], [place] [address] Healthcare Clinics: [facility] [address] [facility], [address] [place]. [place] ; [facility] [address] [facility] [address] [place] [address]; [facility] Health [place] [address] [facility]. [place] [address] [phone] Winter Shelters: [facility] [place] [facility] [address] WGm [place] [address] ; [facility] [place] AV Youth [facility] [address], [address] ; Hope of the [place]* [facility] ; Volunte[facility] [address] [place] [phone] ; Volunteers of [facility] [address] [place], [address] ; [facility] [address]. [facility] [address] ; First To Serve* [facility] 7600 [facility], [address] ; [facility] 2514 WG[address] Jonese.[facility], [phone] ; Home At Last [facility] [address]87 [facility] [place], [address] ; [facility] [address] W[address] Jones[address].[facility], [phone] ; Home At Last [facility] [address] [facility] [place], [address] ; Home at Last [facility] [address], [address] ; Home At Last [address] [place] [address] , [phone] ; [employer] [place] * Library [address] [address] ;
--- NOTE | 2020-12-27 18:11 | NUR ---
PATIENT IN BED AWAKE. HOOKED TO MONITOR. VSS. WILL CONTINUE TO MONITOR ACCORDINGLY. SITTER AT BEDSIDE FOR SAFETY
--- NOTE | 2020-12-27 22:24 | NUR ---
[facility] ACCEPTED BY JACK CORTES/ DR. CONWAY REPORT #[phone]
--- NOTE | 2020-12-27 22:33 | NUR ---
SPOKE [place] [id number].
--- NOTE | 2020-12-27 22:35 | NUR ---
REPORT GIVEN TO LAMONT DIAZ
--- NOTE | 2020-12-27 23:31 | NUR ---
[facility] ETA: [phone]
[2020-12-28 02:53] VITALS: BP 139/80
--- NOTE | 2020-12-28 02:53 | NUR ---
PT TRANSFERRED TO [facility] VIA PRIVATE AMBULANCE. REPORT GIVEN TO [facility] STAFF. LEFT IN STABLE CONDTION, PT COOPERATIVE WITH STAFF.
== END 2020-12-28 04:07 ==
LOC: ER 11:35
DX: R45.851 Suicidal ideations (principal); F10.129 Alcohol abuse with intoxication, unspecified; Y90.8 Blood alcohol level of 240 mg/100 ml or more; I10 Essential (primary) hypertension; F12.10 Cannabis abuse, uncomplicated; Z79.899 Other long term (current) drug therapy; F31.9 Bipolar disorder, unspecified; F20.9 Schizophrenia, unspecified; Z20.822 Contact with and (suspected) exposure to COVID-19; G40.909 Epilepsy, unspecified, not intractable, without status epilepticus; F17.200 Nicotine dependence, unspecified, uncomplicated
CPT/HCPCS: 36415; 80048; 80076; 80299; 80307; 80320 ×2; 85025; 87426; 99285; C9803; G0480

== ENCOUNTER 2021-01-13 13:01 | Emergency (ER) | payer MEDICAID ==
[~2021-01-13] VITALS: Ht 165.1 cm; Wt 92.5 kg
[~2021-01-13 13:01] MED LIST changes: +SERT-439 PO; -SERT100T12 PO
--- NOTE | 2021-01-13 13:12 | NUR ---
"I want to hurt myself. Suicidal Thoughts x3d. Plan is to run into traffic". to ER bed 11. hooked to monitor, changed to hosp gown, warm blanket provided, patient aao X4. suicide precautions applied. sitter at bedside for safety. Dr Lyons at bedside
[2021-01-13 13:46] LABS: BASOPHILS % (AUTO) 0.5 % (0.0-2.0); EOSINOPHILS % (AUTO) 0.6 % (0.0-6.0); HEMATOCRIT 40 % (39-51); HEMOGLOBIN 13.4 g/dL (13.5-17.5); LYMPHOCYTES # (AUTO) 2.4 /CMM (0.8-4.8); LYMPHOCYTES % (AUTO) 43.5 % (20.0-44.0); MEAN CORPUSCULAR HGB CONC 33 g/dl (31.0-36.0); MEAN CORPUSCULAR VOLUME 87 fL (80-96); MONOCYTES # (AUTO) 0.2 /CMM (0.1-1.30); MONOCYTES % (AUTO) 3.9 % (2.0-12.0); NEUTROPHILS # (AUTO) 2.8 /CMM (1.8-8.9); NEUTROPHILS % (AUTO) 51.5 % (43.0-81.0); PLATELET COUNT (AUTO) 259 /CMM (150-450); WHITE BLOOD COUNT (AUTO) 5.5 K/uL (4.3-11.0)
[2021-01-13 14:14] LABS: BILIRUBIN,DIRECT 0.1 mg/dL (0.0-0.2); BILIRUBIN,TOTAL 0.2 mg/dL (0.2-1.0); CALCIUM, SERUM 9.7 mg/dL (8.5-10.1); CREATININE 1.5 mg/dL (0.6-1.3); POTASSIUM 3.6 mmol/L (3.5-5.1); TOTAL PROTEIN, SERUM 9.9 g/dL (6.4-8.2)
--- NOTE | 2021-01-13 14:52 | NUR ---
SEEN BY DARIUS CULLEN, PATIENT HAS BEEN REFERRED TO [facility]. WILL CALL US FOR UPDATE
--- NOTE | 2021-01-13 15:23 | NUR ---
urine sample collected and sent to lab
--- NOTE | 2021-01-13 15:25 | NUR ---
Social Service Consult: DARIUS consult requested by ER staff for a 55 year old homeless male for suicidal ideation. DARIUS met with pt at ER bed 11 and conducted an assessment at 1430 pm. Pt made good eye contact during the assessment. Pt. alert and oriented x4 ( time, place, self, and situation). Pt appears to be in an anxious mood and distress affect. Pt.'s has normal speech and is within normal limits. Pt is ungroomed, malodorous, and had proper attire (dirty). Pt is receptive during the assessment. Pt states is having suicidal ideation with a plan to "walk into traffic". Pt states he is triggered due to a loss of a friend. The loss of the friend triggered the pt t o being under the influence of (ETOH, vodka and Marijuana). Pt denies of homicidal ideation. Pt declines of having family support. Pt expressed being unemployed and receives SSI monthly. Pt has been homeless and been living in [facility] for 3 years. Pt states has been homeless for many years and living in different areas of [facility]. Pt expresses having hx of substance abuse (ETOH and marijuana). Pt ambulates with no walking assistance and DME. DARIUS offers pt to a psychiatric hospital and receive treatments for drug use. Pt voluntarily agrees to psychiatric hospital. DARIUS educate and gave pt with proper resources list to the pt. DARIUS provided the [phone] [facility] Mcfp Program list. SW referred pt. Mental Health resources provided: [facility] [address] [place], [place] [address] ; [facility] [address] [facility] [address], [place] [address] ; [place] [facility] [address] [place] [address] ; [place] [address] . Substance Abuse resources provided included: [facility] Substance Abuse Self-Help line (SASH) ; CRI -HELP [address] [facility] 9[address] ; [facility] [address] [facility] [address] ; [facility] [address] [place] [facility]. [facility] [address] ; [facility] [address] [facility] [address] ; [facility] 4940 [facility] [address] ; [facility] 909 Karen BlvdWrentham Developmental Center [phone] ; [facility] Substance Abuse Help line ([facility] ; [facility] Family [facility] [place] ; [facility]; [facility]; Cri-Help [place]; I-ADARP Inter Agency Drug Abuse Recovery [place]; [place] [facility] [place]; Talihina [place] Path [place]; [facility] [place]; [facility], [facility]. [place]; Alcoholics Anonymous -SFV; Ys-Yath-Bmlxkzp ; Marijuana Anonymous -SFV; Narcotics Anonymous www.na.org. Pt is receptive towards resources and list given by the SW during the assessment. Pt signed homeless waiver form, waiver form kept in pt chart. Plan: SW referred pt. to [facility] (Jhonny- ) ([address] [place] [address]) ([phone] & [phone]) for psychiatric treatment. Latent Print Examiner is available upon request.
[2021-01-13 15:43] LABS: BILIRUBIN,URINE Negative (NEGATIVE); COLOR,URINE YELLOW (YELLOW); LEUKOCYTE ESTERASE ,URINE Negative (NEGATIVE); NITRITE, URINE Negative (NEGATIVE); PH,URINE 5.5 (5.0-8.0); PROTEIN,URINE 100 mg/dl (NEGATIVE); UGLUCOSE Negative (NEGATIVE); UROBILINOGEN,URINE 0.2 EU/dL (0.2)
[2021-01-13 15:59] LABS: BACTERIA,URINE Few /HPF (None Seen); RBC,URINE 0-3 /HPF (0-2); SQUAMOUS EPITHELIAL CELL,UR Few /HPF (None Seen); WBC,URINE 0-2 /HPF (0-3)
--- NOTE | 2021-01-13 17:59 | NUR ---
RAPID COVID SWAB DONE AND SENT TO LAB
--- NOTE | 2021-01-13 18:55 | NUR ---
REPORT GIVEN TO CORDELL MIGUEL FOR AMY
--- NOTE | 2021-01-13 19:20 | NUR ---
FACESHEET AND CLINICAL FAXED TO [facility] INTAKE FOR VOLUNTARY PSYCH ADMISSION.
--- NOTE | 2021-01-14 00:27 | NUR ---
PATIENT IS AWAKE. WATCHING TELEVISION. PATIENT IS AAOX4. NO SOB. BREATHING EVENLY AND UNLABORED ON ROOM AIR. CONNECTED TO THE MONTIOR. SITTER AT BEDSIDE.
--- NOTE | 2021-01-14 04:36 | NUR ---
PATIENT IS SLEEPING. EASILY AROUSABLE. BREATHING EVENLY AND UNLABORED ON ROOM AIR. CONNECTED TO THE MONITOR. SITTER AT BEDSIDE.
--- NOTE | 2021-01-14 05:50 | NUR ---
TRANSFER INFORMATION: PT WILL BE TRANSFERRED TO [facility] MD: DR. DAILY NUMBER FOR REPORT: [phone] UNIT 2
--- NOTE | 2021-01-14 06:01 | NUR ---
CALLED [facility] FOR TRANSPORTATION. RESERVATION #[id number], WILL CALL BACK WITH PER
--- NOTE | 2021-01-14 06:26 | NUR ---
1000 [facility] ambulance ETA
--- NOTE | 2021-01-14 06:37 | NUR ---
REPORT GIVEN TO VIDEO MACHINES MECHANIC ATUL MIGUEL FOR AMY.
--- NOTE | 2021-01-14 08:08 | NUR ---
PATIENT A/OX4, CALM AND COOPERATIVE AT THIS TIME.
[2021-01-14] MEDS ORDERED: HYDROCHLOROTHIAZIDE 25 MG TABLET ONE (09:53)
[2021-01-14] MEDS ORDERED: LEVETIRACETAM (250 MG) 250 MG TABLET PO ONE ×2 (09:54→10:00)
[2021-01-14] MEDS ORDERED: HYDROCHLOROTHIAZIDE 25 MG TABLET PO ONE (10:00)
--- NOTE | 2021-01-14 10:37 | NUR ---
report given to erick david for pt transfer to [facility].
[2021-01-14 10:41] VITALS: BP 152/88
== END 2021-01-14 10:42 ==
LOC: ER 13:08
DX: R45.851 Suicidal ideations (principal); I10 Essential (primary) hypertension; F32.9 Major depressive disorder, single episode, unspecified; R44.0 Auditory hallucinations; G40.909 Epilepsy, unspecified, not intractable, without status epilepticus; Z79.899 Other long term (current) drug therapy; Z20.822 Contact with and (suspected) exposure to COVID-19
CPT/HCPCS: 36415 ×2; 80048; 80076; 80299; 80307; 80320 ×3; 81001; 85025; 87426; 99285; C9803; G0480

== ENCOUNTER 2021-01-24 16:12 | Emergency (ER) | payer MEDICAID ==
[~2021-01-24] VITALS: Ht 165.1 cm; Wt 93.0 kg
--- NOTE | 2021-01-24 16:30 | NUR ---
feeling depressed and suicidal - wants to be admitted to [facility]
[2021-01-24 16:56] LABS: BILIRUBIN,URINE NEGATIVE (NEGATIVE); COLOR,URINE YELLOW (YELLOW); LEUKOCYTE ESTERASE ,URINE NEGATIVE (NEGATIVE); NITRITE, URINE NEGATIVE (NEGATIVE); PROTEIN,URINE NEGATIVE (NEGATIVE); UGLUCOSE NEGATIVE (NEGATIVE); UROBILINOGEN,URINE 0.2 EU/dL (0.2)
[2021-01-24 16:59] LABS: BASOPHILS # (AUTO) 0.1 /CMM (0.0-0.2); BASOPHILS % (AUTO) 2.1 % (0.0-2.0); EOSINOPHILS % (AUTO) 1.2 % (0.0-6.0); HEMATOCRIT 38 % (39-51); HEMOGLOBIN 12.4 g/dL (13.5-17.5); LYMPHOCYTES # (AUTO) 2.1 /CMM (0.8-4.8); LYMPHOCYTES % (AUTO) 44.1 % (20.0-44.0); MEAN CORPUSCULAR HGB CONC 32 g/dl (31.0-36.0); MEAN CORPUSCULAR VOLUME 87 fL (80-96); MONOCYTES # (AUTO) 0.4 /CMM (0.1-1.30); MONOCYTES % (AUTO) 8.7 % (2.0-12.0); NEUTROPHILS # (AUTO) 2.1 /CMM (1.8-8.9); NEUTROPHILS % (AUTO) 43.9 % (43.0-81.0); PLATELET COUNT (AUTO) 316 /CMM (150-450); RED BLOOD CELL COUNT(AUTO) 4.41 MIL/uL (4.5-6.0); WHITE BLOOD COUNT (AUTO) 4.8 K/uL (4.3-11.0)
[2021-01-24 17:53] LABS: CALCIUM, SERUM 9.2 mg/dL (8.5-10.1); CREATININE 1.4 mg/dL (0.6-1.3); POTASSIUM 3.9 mmol/L (3.5-5.1)
[2021-01-24 18:15] LABS: BILIRUBIN,TOTAL 0.2 mg/dL (0.2-1.0)
[2021-01-24 18:16] LABS: ALBUMIN 3.5 g/dL (3.4-5.0); BILIRUBIN,DIRECT 0.1 mg/dL (0.0-0.2); TOTAL PROTEIN, SERUM 8.5 g/dL (6.4-8.2)
--- NOTE | 2021-01-24 20:58 | NUR ---
Pt. in bed sleeping.
--- NOTE | 2021-01-24 21:24 | NUR ---
LAB CALLED REGARDING NEGATIVE COVID RESULT.
--- NOTE | 2021-01-24 22:17 | NUR ---
PT IN BED SLEEPING. EASILY ARROIUSABLE. NAD NOTED
--- NOTE | 2021-01-25 00:52 | NUR ---
Pt. is sleeping, easily aroused.
[2021-01-25] MEDS ORDERED: CLONIDINE HCL 0.1 MG TABLET PO ONE ×2 (04:30→20:30)
[2021-01-25] MEDS ORDERED: CLONIDINE HCL 0.1 MG TABLET ONE ×2 (04:37→20:17)
--- NOTE | 2021-01-25 05:48 | NUR ---
UOP 350cc
--- NOTE | 2021-01-25 06:02 | NUR ---
ITINERANT TEACHER ASSISTANT AT BEDSIDE FOR REPEAT ETHANOL LEVEL.
--- NOTE | 2021-01-25 07:29 | NUR ---
REPORT RECEIVED FROM RAISA PERDOMO RN
--- NOTE | 2021-01-25 10:00 | NUR ---
RESTING IN BED. VERBALLY RESPONSIVE AND COOPERATIVE TO STAFF. STABLE VITALS.
--- NOTE | 2021-01-25 10:52 | NUR ---
Support Specialist Consultation: This Safety Admin Assistant met with the patient today. Reason for consultation is suicidal ideation. Patient is a 55 year old male, who presented to the ED feeling depressed with thoughts of suicide, wanting to run into traffic. Patient is awake, alert, receptive to speaking with this SW. Patient lives off-and-on with his cousin Mark Bhatia in [place] ([address] [place] [address], ), and at times patient stays with a friend. Patient reports diagnosis of Paranoid Schizophrenia, and has been prescribed Zoloft and Seroquel, which patient states he is complaint with. Patient reports being at [facility] last week, but feeling like he needs to return there for further care. Patient reports hx of SI and current SI of wanting to run into traffic. Patient denies HI. Patient denies hallucinations. No delusional thoughts observed. Patient reports drinking 1 1/2 pints of vodka every other day; per current toxicology report patient has tested positive for alcohol. Patient also reports use of marijuana every other day, and smoking about 6 cigarettes on a daily basis. Patient was cooperative with this SW, engaged in dialogue. Patient maintained appropriate eye contact, tone of voice was appropriate, speech was clear. Thought process and content were appropriate. Patient is in agreement with voluntary admission to [facility]. SW assessed for need of community resources, and patient was receptive to receiving the homeless resource packet. SW met with LAMONT Lyons and informed him of above, and plan to refer patient to [facility]. PLAN: SW to fax clinicals to [facility]. SW to provide patient with homeless resource packet.
--- NOTE | 2021-01-25 11:05 | NUR ---
Caustics Loader faxed patient's clinicals to Jhonny at [facility], fax [phone]. SW also spoke with Jhonny, to confirm referral, and Jhonny stated he will process the referral and let this SW know of outcome. [facility] intake [phone].
--- NOTE | 2021-01-25 11:27 | NUR ---
DARIUS met with Dr. Smith and informed him that patient has been referred to [facility], pending admission. Dr. Smith is in agreement with this plan. SW met with the patient and provided him with the following homeless community resources. Patient also signed the Homeless Patient Waiver form, and this SW filed it in the patient's ED chart. Substance Abuse resources provided included: [facility] Substance Abuse Self-Helpline ([facility]) ; [facility] [address] [facility] [place]. [place] [address] ; [facility] [address] [facility] [address] ; [facility] Rehabilitation [facility] [address] [facility] [address] ; [facility] [place] [address] [facility] [address] ; [facility] 4940 [facility] [address] ; [facility] 909 [facility] [id number] Year-round shelters: [facility] [place] [address] [place] [address] ; [facility] [address] [place] [address]; [facility] [address] [facility] [address] Winter Shelters: [facility] [address] [facility]. [facility] [address] [facility] [address] [facility], [address] [facility] [address] [facility] [place], [address] [facility] 8908 [facility], [address] [place] 3534 [facility]. [facility] [address] Hygiene: [facility]: [address] Casim[facility]Ssm [facility] ; [facility] [address] [facility] ; [facility] 6901 [facility]in [facility] [place] . Food Resources: [facility] [facility] at [facility]- [address]. [place]; Meet Each Need with Dignity ([facility]) [address] [facility]. [place]; [facility] Food [facility] 4356 [facility]; [facility] 4157 [facility]. Mental Health resources provided: [facility] [address] [place], [place] [id number] ; [facility] [place], [facility]. [address] [facility] [address], [place], [place] [id number] ; [facility] [address] [place], [place] [phone] ; [facility] [place], [place] [id number] Healthcare Clinics: [facility] 6551 [facility], [address] [place]. [place] ; [facility] [address] [facility] [address] [place] [address]; [facility] [address] [facility] [place] [address] [phone]
--- NOTE | 2021-01-25 12:05 | NUR ---
RESTING IN BED. PROVIDED W/ LUNCH TRAY. STABLE VITALS. WILL CONTINUE TO MONITOR.
--- NOTE | 2021-01-25 16:49 | NUR ---
PATIENT ACCEPTED [facility] ACCEPTING: DR AGOSTO AT [place] [address] NUMBER FOR REPORT: [phone] EXT [phone]
--- NOTE | 2021-01-25 17:03 | NUR ---
REPORT GIVEN TO DHIRAJ MIGUEL OF [facility]. INSTRUCT PA TO DROP BY ADMITTING
--- NOTE | 2021-01-25 17:25 | NUR ---
[facility] [phone] [facility] #[id number] WILL CONTACT WHEN TRANSPORT IS FOUND.
--- NOTE | 2021-01-25 17:47 | NUR ---
[facility] CALLED TRANSPORT [facility] WILL BE HERE AT 1930.
--- NOTE | 2021-01-25 20:02 | NUR ---
[facility] @ BEDSIDE FOR PT TRANSPORT TO [facility]. REPORT GIVEN TO EMT. PT IS IN STABLE CONDITION FOR TRANSPORT.
[2021-01-25 20:20] VITALS: BP 183/117
--- NOTE | 2021-01-25 20:25 | NUR ---
PT GIVEN CLONIDINE 0.1MG PO. PT LEFT ON GURNEY WITH BLEACHER SULFITE PULP AT BEDSIDE. PT IS IN STABLE CONDITION FOR TRANSPORT.
== END 2021-01-25 20:26 ==
LOC: ER 16:12
DX: R45.851 Suicidal ideations (principal); F12.10 Cannabis abuse, uncomplicated; F10.10 Alcohol abuse, uncomplicated; Y90.8 Blood alcohol level of 240 mg/100 ml or more; Z20.822 Contact with and (suspected) exposure to COVID-19; F20.0 Paranoid schizophrenia; G40.909 Epilepsy, unspecified, not intractable, without status epilepticus; F32.9 Major depressive disorder, single episode, unspecified; I10 Essential (primary) hypertension; Z79.899 Other long term (current) drug therapy
CPT/HCPCS: 36415 ×2; 80048; 80076; 80299; 80307; 80320 ×4; 81003; 85025; 87426; 99285; C9803; G0480

== ENCOUNTER 2021-01-28 16:53 | Emergency (ER) | payer MEDICAID ==
[~2021-01-28] VITALS: Ht 167.6 cm; Wt 99.8 kg
--- NOTE | 2021-01-28 16:53 | NUR ---
PT BIB SELF C/O SUICIDAL IDEATION "I WANT TO HURT MY SELF" PT IS AAOX4, NOT IN RESPIRATORY DISTRESS, V/S STABLE, KEPT RESTED AND COMFORTABLE. WILL CONTINUE TO MONITOR.
--- NOTE | 2021-01-28 17:00 | NUR ---
DR PAUL AT BEDSIDE FOR EVAL
[2021-01-28 17:28] LABS: BASOPHILS # (AUTO) 0.1 /CMM (0.0-0.2); BASOPHILS % (AUTO) 0.9 % (0.0-2.0); HEMATOCRIT 39 % (39-51); HEMOGLOBIN 13.1 g/dL (13.5-17.5); LYMPHOCYTES # (AUTO) 2.8 /CMM (0.8-4.8); LYMPHOCYTES % (AUTO) 44.7 % (20.0-44.0); MEAN CORPUSCULAR HGB CONC 33 g/dl (31.0-36.0); MEAN CORPUSCULAR VOLUME 86 fL (80-96); MONOCYTES # (AUTO) 0.6 /CMM (0.1-1.30); MONOCYTES % (AUTO) 9.5 % (2.0-12.0); NEUTROPHILS # (AUTO) 2.7 /CMM (1.8-8.9); NEUTROPHILS % (AUTO) 43.9 % (43.0-81.0); PLATELET COUNT (AUTO) 318 /CMM (150-450); RED BLOOD CELL COUNT(AUTO) 4.58 MIL/uL (4.5-6.0); WHITE BLOOD COUNT (AUTO) 6.2 K/uL (4.3-11.0)
[2021-01-28 17:38] LABS: BILIRUBIN,URINE NEGATIVE (NEGATIVE); COLOR,URINE YELLOW (YELLOW); LEUKOCYTE ESTERASE ,URINE NEGATIVE (NEGATIVE); NITRITE, URINE NEGATIVE (NEGATIVE); PROTEIN,URINE TRACE mg/dl (NEGATIVE); UGLUCOSE NEGATIVE (NEGATIVE); UROBILINOGEN,URINE 0.2 EU/dL (0.2)
[2021-01-28 17:43] LABS: CALCIUM, SERUM 9.7 mg/dL (8.5-10.1); CREATININE 1.8 mg/dL (0.6-1.3); POTASSIUM 3.4 mmol/L (3.5-5.1)
[2021-01-28 17:49] LABS: ALBUMIN 3.9 g/dL (3.4-5.0); BILIRUBIN,DIRECT 0.1 mg/dL (0.0-0.2); BILIRUBIN,TOTAL 0.5 mg/dL (0.2-1.0); TOTAL PROTEIN, SERUM 9.1 g/dL (6.4-8.2)
[2021-01-28 18:09] LABS: BACTERIA,URINE None seen /HPF (None Seen); RBC,URINE 0-2 /HPF (0-2); SQUAMOUS EPITHELIAL CELL,UR Moderate /HPF (None Seen); URINE AMORPHOUS URATE Few /HPF (None Seen)
--- NOTE | 2021-01-28 19:39 | NUR ---
LAB CALLED FOR NEGATIVE COVID RESULTS
--- NOTE | 2021-01-29 00:36 | NUR ---
PT RESTING, APPEARS COMFORTABLE, SITTER WITHIN LINE OF SIGHT.
--- NOTE | 2021-01-29 03:36 | NUR ---
SPOKE TO CJ FROM [facility] INTAKE, STATES ALOCHOL SERUM MUST BE UNDER 100 FOR PLACEMENT.
--- NOTE | 2021-01-29 05:22 | NUR ---
[facility]
--- NOTE | 2021-01-29 06:07 | NUR ---
CALLED [facility] INTAKE REGARDING CLINICALS BEING RECEIVED. CLINICALS ARE RECEIVED. WILL CALL BACK REGARDING ACCEPTANCE.
--- NOTE | 2021-01-29 06:30 | NUR ---
[facility] MD: DR. DAILY REPORT TO [phone]
--- NOTE | 2021-01-29 06:41 | NUR ---
REPORT GIVEN TO ALECIA MIGUEL AT [facility]. [id number]
--- NOTE | 2021-01-29 06:41 | NUR ---
SPOKE TO ROD FROM [employer]. REF #[id number]. WILL CALL BACK FOR TRANSFER INFO.
--- NOTE | 2021-01-29 07:23 | NUR ---
CALLED [facility] FOR TRANSPORT TO [facility]. ETA 15-20 MINUTES.
--- NOTE | 2021-01-29 09:21 | NUR ---
CALLED [facility], NO ANSWER, LEFT MESSAGE.
--- NOTE | 2021-01-29 11:10 | NUR ---
PT STATED HE IS NOT SUICIDAL ANYMORE AND DOESNT WANT TO BE ADMITTED AT [facility]. AWARE.
--- NOTE | 2021-01-29 11:40 | NUR ---
[facility] MIGUEL CRISIS SMALLTALK DEVELOPER AT BEDSIDE FOR EVAL.
--- NOTE | 2021-01-29 11:47 | NUR ---
Patient given written and verbal discharge instructions. Patient verbalizes understanding of instructions. Patient is ambulatory with steady gait. Refuses offer of [facility] placement. Patient given list of available shelters in surrounding area.
[2021-01-29 11:50] VITALS: BP 120/88
== END 2021-01-29 11:51 | disposition home or self-care (01) ==
LOC: ER 16:54
DX: R45.851 Suicidal ideations (principal); F10.129 Alcohol abuse with intoxication, unspecified; Y90.7 Blood alcohol level of 200-239 mg/100 ml; Z20.822 Contact with and (suspected) exposure to COVID-19; F20.0 Paranoid schizophrenia; I10 Essential (primary) hypertension; Z82.49 Family history of ischemic heart disease and other diseases of the circulatory system
CPT/HCPCS: 36415 ×2; 80048; 80076; 80299; 80307; 80320 ×4; 81001; 85025; 87426; 99285; C9803; G0480

== ENCOUNTER 2021-01-31 21:32 | Emergency (ER) | payer MEDICAID ==
[~2021-01-31] VITALS: Ht 167.6 cm; Wt 99.8 kg
--- NOTE | 2021-01-31 21:55 | NUR ---
BIBS FOR C/O SI, REQUESTING VOLUNTARY PSYCH ADMISSION TO [facility]. PT A, OX4. AMBULATORY W/ STEADY GAITS AND STABLE VS. DENIED ANY PAIN OR DISCOMFORT. URINE SAMPLE OBTAINED . PT WAS PLACED ON SI PRECAUTIONS AND NEEDS ATTENDED . WILL CONT TO MONITOR ,
[2021-01-31 22:23] LABS: BASOPHILS % (AUTO) 0.8 % (0.0-2.0); HEMATOCRIT 41 % (39-51); HEMOGLOBIN 13.6 g/dL (13.5-17.5); LYMPHOCYTES # (AUTO) 2.1 /CMM (0.8-4.8); LYMPHOCYTES % (AUTO) 39.3 % (20.0-44.0); MEAN CORPUSCULAR HGB CONC 33 g/dl (31.0-36.0); MEAN CORPUSCULAR VOLUME 87 fL (80-96); MONOCYTES # (AUTO) 0.3 /CMM (0.1-1.30); MONOCYTES % (AUTO) 6.5 % (2.0-12.0); NEUTROPHILS # (AUTO) 2.8 /CMM (1.8-8.9); NEUTROPHILS % (AUTO) 52.4 % (43.0-81.0); PLATELET COUNT (AUTO) 297 /CMM (150-450); RED BLOOD CELL COUNT(AUTO) 4.72 MIL/uL (4.5-6.0); WHITE BLOOD COUNT (AUTO) 5.3 K/uL (4.3-11.0)
[2021-01-31 22:45] LABS: BILIRUBIN,URINE NEGATIVE (NEGATIVE); COLOR,URINE YELLOW (YELLOW); LEUKOCYTE ESTERASE ,URINE NEGATIVE (NEGATIVE); NITRITE, URINE NEGATIVE (NEGATIVE); PROTEIN,URINE TRACE mg/dl (NEGATIVE); UGLUCOSE NEGATIVE (NEGATIVE); UROBILINOGEN,URINE 0.2 EU/dL (0.2)
[2021-01-31 22:48] LABS: ALANINE AMINOTRANSFERASE 56 U/L (12-78); ALBUMIN 3.9 g/dL (3.4-5.0); ALCOHOL, BLOOD 239 mg/dL (0-0); ALKALINE PHOSPHATASE 76 U/L (46-116); ASPARTATE AMINOTRANSFERASE 32 U/L (15-37); BILIRUBIN,DIRECT 0.1 mg/dL (0.0-0.2); BILIRUBIN,TOTAL 0.4 mg/dL (0.2-1.0); CALCIUM, SERUM 9.7 mg/dL (8.5-10.1); CARBON DIOXIDE 27 mmol/L (21-32); CHLORIDE 97 mmol/L (98-107); CREATININE 1.3 mg/dL (0.6-1.3); GLUCOSE 153 mg/dL (74-106); SODIUM SERUM 138 mmol/L (136-145); TOTAL PROTEIN, SERUM 9.5 g/dL (6.4-8.2); UREA NITROGEN, BLOOD 11 mg/dL (7-18)
[2021-01-31 23:01] LABS: ACETAMINOPHEN < 2 ug/ml (10-30)
[2021-01-31 23:06] LABS: BACTERIA,URINE Few /HPF (None Seen); RBC,URINE 0-2 /HPF (0-2); SQUAMOUS EPITHELIAL CELL,UR Few /HPF (None Seen); WBC,URINE 0-2 /HPF (0-3)
--- NOTE | 2021-02-01 07:35 | NUR ---
ASSUME PT CARE, RESTING IN BED. BELONGINGS TO SAFE LOCKER. PT CAME IN FOR SI W/ PLAN TO RUN INTO TRAFFIC. ADMITS TO ETOH PRIOR TO CHECKING IN. COOPERATIVE TO STAFF. STABLE VITAL. WILL CONTINUE TO MONITOR.
--- NOTE | 2021-02-01 08:10 | NUR ---
PT TO ED BED 15. PROVIDED W/ BREAKFAST TRAY. STABLE VITALS. SITTER AT BEDSIDE.
--- NOTE | 2021-02-01 11:04 | NUR ---
[place] Referral: DARIUS faxed clinicals to [facility] [[address] [place] [phone] ] for inpatient psychiatric treatment.
[2021-02-01] MEDS ORDERED: SERTRALINE HCL 50 MG TABLET PO ONE (12:00)
[2021-02-01] MEDS ORDERED: HYDROCHLOROTHIAZIDE 25 MG TABLET PO ONE (12:00)
[2021-02-01] MEDS ORDERED: HYDROCHLOROTHIAZIDE 25 MG TABLET ONE (12:00)
[2021-02-01] MEDS ORDERED: LEVETIRACETAM (250 MG) 250 MG TABLET PO ONE ×2 (12:00)
--- NOTE | 2021-02-01 14:33 | NUR ---
ACCEPTED BY DR GEORGE AT [facility] NUMBER FOR REPORT TIFFANI
--- NOTE | 2021-02-01 14:44 | NUR ---
AMBULANCE ARRANGED THROUGH [facility]; CONFIRMATION NUMBER [id number] STILL AWAITING FOR FURTHER DETAILS REGARDING TRANSPORT
--- NOTE | 2021-02-01 15:04 | NUR ---
[facility] ambulance fruit picker machine operator at 1630, PARTIAL REPORT GIVEN TO DARION MIGUEL.
[2021-02-01 15:09] VITALS: BP 116/72
--- NOTE | 2021-02-01 15:12 | NUR ---
report given to nursing tool room supervisor lexi for merry.
--- NOTE | 2021-02-01 17:19 | NUR ---
PATIENT A/OX4, BREATHING EVEN AND UNLABORED, NOS OB NOTED, TRANSFERRED TO [facility] FOR VOLUNTARY ADMISSION. PATIENT IN NO DISTRESS, VITALS STABLE.
== END 2021-02-01 17:20 ==
LOC: ER 21:34
DX: R45.851 Suicidal ideations (principal); F20.0 Paranoid schizophrenia; I10 Essential (primary) hypertension; F32.9 Major depressive disorder, single episode, unspecified; Z79.899 Other long term (current) drug therapy; Z20.822 Contact with and (suspected) exposure to COVID-19
CPT/HCPCS: 36415 ×2; 80048; 80076; 80299; 80307; 80320 ×3; 81001; 85025; 87426; 99285; C9803; G0480

== ENCOUNTER 2021-02-15 08:29 | Emergency (ER) | payer MEDICAID ==
[~2021-02-15] VITALS: Ht 165.1 cm; Wt 90.7 kg
--- NOTE | 2021-02-15 08:48 | NUR ---
CALLED PT IN [place], NO ANSWER.
--- NOTE | 2021-02-15 09:24 | NUR ---
PT SELF PRESENTS TO ED. AMBULATORY W. STEADY GAIT C/O BEING DEPRESSED AND SUICIDAL W/ PLAN TO RUN THROUGH TRAFFIC. ADMITS TO ETOH USE. SEEN IN ED MULTIPLE TIMES FOR SAME REASON. HOMELESS. PT IS COOPERATIVE. AWAITING MD BARTLETT.
--- NOTE | 2021-02-15 09:29 | NUR ---
DR PAUL AT BEDSIDE FOR EVAL.
--- NOTE | 2021-02-15 09:50 | NUR ---
BLOOD DRAWN AND SEND TO LAB.
[2021-02-15 09:52] LABS: BILIRUBIN,URINE Negative (NEGATIVE); COLOR,URINE YELLOW (YELLOW); LEUKOCYTE ESTERASE ,URINE Negative (NEGATIVE); NITRITE, URINE Negative (NEGATIVE); PROTEIN,URINE >=300 mg/dl (NEGATIVE); UGLUCOSE Negative (NEGATIVE); UROBILINOGEN,URINE 0.2 EU/dL (0.2)
[2021-02-15 09:57] LABS: BASOPHILS # (AUTO) 0.3 /CMM (0.0-0.2); BASOPHILS % (AUTO) 3.7 % (0.0-2.0); EOSINOPHILS % (AUTO) 0.7 % (0.0-6.0); HEMATOCRIT 41 % (39-51); HEMOGLOBIN 13.6 g/dL (13.5-17.5); LYMPHOCYTES # (AUTO) 1.4 /CMM (0.8-4.8); LYMPHOCYTES % (AUTO) 17.9 % (20.0-44.0); MEAN CORPUSCULAR HGB CONC 33 g/dl (31.0-36.0); MEAN CORPUSCULAR VOLUME 88 fL (80-96); MONOCYTES # (AUTO) 0.1 /CMM (0.1-1.30); NEUTROPHILS # (AUTO) 6.2 /CMM (1.8-8.9); NEUTROPHILS % (AUTO) 76.7 % (43.0-81.0); PLATELET COUNT (AUTO) 292 /CMM (150-450); WHITE BLOOD COUNT (AUTO) 8.1 K/uL (4.3-11.0)
[2021-02-15 10:03] LABS: CALCIUM, SERUM 9.2 mg/dL (8.5-10.1); CREATININE 1.3 mg/dL (0.6-1.3); POTASSIUM 3.7 mmol/L (3.5-5.1)
[2021-02-15 10:11] LABS: ALBUMIN 4.2 g/dL (3.4-5.0); BILIRUBIN,DIRECT 0.1 mg/dL (0.0-0.2); BILIRUBIN,TOTAL 0.2 mg/dL (0.2-1.0)
[2021-02-15 10:22] LABS: BACTERIA,URINE None seen /HPF (None Seen); SQUAMOUS EPITHELIAL CELL,UR None Seen /HPF (None Seen); WBC,URINE 0-2 /HPF (0-3)
--- NOTE | 2021-02-15 11:39 | NUR ---
COVID NEGATVE PER LAB REPORT.
--- NOTE | 2021-02-15 14:00 | NUR ---
travel services professional consult: travel services professional consult requested for suicidal ideation with a plan and homelessness. Patient is a 55-year-old, -[place] male. Per ED physician, the patient brought himself to the emergency department after feeling suicidal and verbalized a plan to run into traffic. DARIUS met with the patient in the emergency department. Patient is alert and oriented x4. Patient is well-groomed and energetic. Patient stated that he has been feeling depressed because his friend two weeks ago. SW asked the patient if he had any social support and the patient stated that he has a few friends that he stays with and receives social support from. Patient mentioned his friend Mark. Patient stated he can ambulate and is independent with his ADLs. Patient stated he receives finances from social security income. SW asked the patient about any history of mental illness and patient stated he has been diagnosed with Schizophrenia. Patient stated that he takes his psychiatric medication, Seroquel, which he obtains from [facility]. Patient stated that he has visual hallucinations but denied any current hallucinations. Patient stated that he has a history of suicidal ideations and denies any homicidal ideations. SW asked the patient if he had any present suicidal ideations and patient stated yes, I feel suicidal and think about walking into traffic. SW discussed voluntary psychiatric hospitalization with the patient, and patient agreed to this discharge plan. DARIUS presented a homeless resource packet to the patient and patient declined. Patient signed the homeless waiver and SW filed the waiver in the patients chart. DARIUS faxed over clinicals to [facility] (fax [phone]; tel [phone]) at [facility].
--- NOTE | 2021-02-15 19:30 | NUR ---
CLINICAL AND FAXED TO [facility] INTAKE FOR VOLUNTARY PSYCH ADMISSION.
[2021-02-15] MEDS ORDERED: AMLODIPINE BESYLATE 5 MG TABLET ONE (22:07)
[2021-02-15] MEDS ORDERED: AMLODIPINE BESYLATE 5 MG TABLET PO ONE (22:30)
--- NOTE | 2021-02-16 01:05 | NUR ---
PT ACCEPTED AT [facility] ACCEPTING MD DAILY PHONE# FOR REPORT PT WILL GO TO UNIT 2
--- NOTE | 2021-02-16 01:14 | NUR ---
[facility] CALLED FOR S TRANSPORT. TRIP# [id number]
--- NOTE | 2021-02-16 01:43 | NUR ---
[facility] ETA 4AM. REF#[id number]
[2021-02-16] MEDS ORDERED: CLONIDINE HCL 0.1 MG TABLET PO ONE (02:00)
[2021-02-16] MEDS ORDERED: CLONIDINE HCL 0.1 MG TABLET ONE (02:01)
[2021-02-16 02:23] VITALS: BP 130/80
--- NOTE | 2021-02-16 02:23 | NUR ---
IV removed. Catheter intact and site benign. Pressure and 4x4 applied to site. No bleeding noted.
--- NOTE | 2021-02-16 02:26 | NUR ---
REPORT GIVEN TO MARISOL MIGUEL FOR CONTINUATION OF CARE.
--- NOTE | 2021-02-16 02:27 | NUR ---
[facility] AT BEDSIDE FOR TRANSPORT.
== END 2021-02-16 02:45 ==
LOC: ER 08:33
DX: R45.851 Suicidal ideations (principal); F20.0 Paranoid schizophrenia; Z91.013 Allergy to seafood; I10 Essential (primary) hypertension; G40.909 Epilepsy, unspecified, not intractable, without status epilepticus; F10.10 Alcohol abuse, uncomplicated; Y90.8 Blood alcohol level of 240 mg/100 ml or more
CPT/HCPCS: 36415; 80048; 80076; 80299; 80307; 80320 ×2; 81001; 85025; 87426; 99285; C9803; G0480

== ENCOUNTER 2021-02-25 00:27 | Emergency (ER) | payer MEDICAID ==
[~2021-02-25] VITALS: Ht 165.1 cm; Wt 90.7 kg
--- NOTE | 2021-02-25 00:31 | NUR ---
PT AAOX4. AMBULATORY WITH STEADY GAIT. BIBSELF C/O SI TO JUMP IN FRONT OF TRAFFIC. -HI. REQUESTING MEDICAL CLERANCE TO [facility]. VSS. NO SKIN ISSUES.
--- NOTE | 2021-02-25 00:54 | NUR ---
AHSANID SWABBED, SENT TO LAB.
--- NOTE | 2021-02-25 01:04 | NUR ---
PATTERN LAYOUT WORKER AT BEDSIDE FOR BLOOD WORK
[2021-02-25 01:34] LABS: ALANINE AMINOTRANSFERASE 26 U/L (12-78); ALBUMIN 3.5 g/dL (3.4-5.0); ALCOHOL, BLOOD 178 mg/dL (0-0); ALKALINE PHOSPHATASE 75 U/L (46-116); ASPARTATE AMINOTRANSFERASE 18 U/L (15-37); BILIRUBIN,DIRECT 0.1 mg/dL (0.0-0.2); BILIRUBIN,TOTAL 0.2 mg/dL (0.2-1.0); CALCIUM, SERUM 9.8 mg/dL (8.5-10.1); CARBON DIOXIDE 28 mmol/L (21-32); CHLORIDE 103 mmol/L (98-107); CREATININE 1.4 mg/dL (0.6-1.3); GLUCOSE 117 mg/dL (74-106); POTASSIUM 3.5 mmol/L (3.5-5.1); SODIUM SERUM 142 mmol/L (136-145); TOTAL PROTEIN, SERUM 8.7 g/dL (6.4-8.2); UREA NITROGEN, BLOOD 17 mg/dL (7-18)
[2021-02-25 01:37] LABS: ACETAMINOPHEN < 2 ug/ml (10-30)
[2021-02-25 01:42] LABS: BASOPHILS % (AUTO) 0.6 % (0.0-2.0); EOSINOPHILS % (AUTO) 1.7 % (0.0-6.0); HEMATOCRIT 37 % (39-51); HEMOGLOBIN 12.3 g/dL (13.5-17.5); LYMPHOCYTES # (AUTO) 2.2 /CMM (0.8-4.8); LYMPHOCYTES % (AUTO) 51.6 % (20.0-44.0); MEAN CORPUSCULAR HGB CONC 33 g/dl (31.0-36.0); MEAN CORPUSCULAR VOLUME 86 fL (80-96); MONOCYTES # (AUTO) 0.4 /CMM (0.1-1.30); MONOCYTES % (AUTO) 9.2 % (2.0-12.0); NEUTROPHILS # (AUTO) 1.6 /CMM (1.8-8.9); NEUTROPHILS % (AUTO) 36.9 % (43.0-81.0); PLATELET COUNT (AUTO) 292 /CMM (150-450); RED BLOOD CELL COUNT(AUTO) 4.28 MIL/uL (4.5-6.0); WHITE BLOOD COUNT (AUTO) 4.3 K/uL (4.3-11.0)
[2021-02-25 02:01] LABS: BILIRUBIN,URINE NEGATIVE (NEGATIVE); COLOR,URINE YELLOW (YELLOW); LEUKOCYTE ESTERASE ,URINE NEGATIVE (NEGATIVE); NITRITE, URINE NEGATIVE (NEGATIVE); PH,URINE 5.5 (5.0-8.0); PROTEIN,URINE NEGATIVE (NEGATIVE); UGLUCOSE NEGATIVE (NEGATIVE); UROBILINOGEN,URINE 0.2 EU/dL (0.2)
--- NOTE | 2021-02-25 04:21 | NUR ---
PT REMAINS ASLEEP, VSS.
--- NOTE | 2021-02-25 06:44 | NUR ---
CALLED LAB FOR DRAW.
[2021-02-25] MEDS ORDERED: HYDROCHLOROTHIAZIDE 25 MG TABLET ONE (13:43)
[2021-02-25] MEDS ORDERED: HYDROCHLOROTHIAZIDE 25 MG TABLET PO ONE (14:00)
--- NOTE | 2021-02-25 14:19 | NUR ---
FAXED FACE SHEET AND CLINCALS TO [facility] FOR VOLUNTARY ADMISSION
--- NOTE | 2021-02-25 14:47 | NUR ---
[facility]
--- NOTE | 2021-02-25 15:03 | NUR ---
CALLED [facility]IF WILL LET US KNOW SOON PT GETS ACCEPTED
--- NOTE | 2021-02-25 16:36 | NUR ---
[facility] CALLED PT WAS THERE YESTERDAY AND CAN BE THERE TOMORROW
--- NOTE | 2021-02-25 18:02 | NUR ---
TAYLOR CALLED PT ACCEPTED TO [facility] UNDER DR. DAVIES BED 100-G AVAILABLE AFTER 1929 CALL [phone] FOR REPORT AFTER 1929
--- NOTE | 2021-02-25 18:13 | NUR ---
TRANSPORT CALLED ETA 45 MINS AM WEST.
--- NOTE | 2021-02-25 19:08 | NUR ---
PT REQUESTED TO BE DISCHARGED, DENIES SI AND HI. ER MD AWARE. PT AMBULATORY WITH STEADY GAIT.
--- NOTE | 2021-02-25 19:13 | NUR ---
Patient discharged to home in stable condition. Written and verbal after care instructions given. Patient verbalizes understanding of instruction. Pt given his belonings back. Ambulated out of ED with steady gait.
--- NOTE | 2021-02-25 19:13 | NUR ---
CANCELLED TRANSPORT AM [facility].
[2021-02-25 19:14] VITALS: BP 129/74
== END 2021-02-25 19:14 | disposition home or self-care (01) ==
LOC: ER 00:29
DX: R45.851 Suicidal ideations (principal); F10.129 Alcohol abuse with intoxication, unspecified; Y90.6 Blood alcohol level of 120-199 mg/100 ml; Z82.49 Family history of ischemic heart disease and other diseases of the circulatory system; F20.0 Paranoid schizophrenia; I10 Essential (primary) hypertension; G40.909 Epilepsy, unspecified, not intractable, without status epilepticus; Z79.899 Other long term (current) drug therapy; Z20.822 Contact with and (suspected) exposure to COVID-19
CPT/HCPCS: 36415; 80048; 80076; 80299; 80307; 80320 ×3; 81003; 85025; 87426; 99285; C9803; G0480

== ENCOUNTER 2021-02-28 15:40 | Emergency (ER) | payer MEDICAID ==
[~2021-02-28] VITALS: Ht 165.1 cm; Wt 90.7 kg
[2021-02-28 17:09] LABS: EOSINOPHILS % (AUTO) 0.5 % (0.0-6.0); HEMATOCRIT 38 % (39-51); HEMOGLOBIN 12.6 g/dL (13.5-17.5); LYMPHOCYTES # (AUTO) 2.4 /CMM (0.8-4.8); LYMPHOCYTES % (AUTO) 46.9 % (20.0-44.0); MEAN CORPUSCULAR HGB CONC 33 g/dl (31.0-36.0); MEAN CORPUSCULAR VOLUME 86 fL (80-96); MONOCYTES # (AUTO) 0.4 /CMM (0.1-1.30); MONOCYTES % (AUTO) 6.9 % (2.0-12.0); NEUTROPHILS # (AUTO) 2.3 /CMM (1.8-8.9); NEUTROPHILS % (AUTO) 44.7 % (43.0-81.0); PLATELET COUNT (AUTO) 283 /CMM (150-450); RED BLOOD CELL COUNT(AUTO) 4.45 MIL/uL (4.5-6.0); WHITE BLOOD COUNT (AUTO) 5.2 K/uL (4.3-11.0)
[2021-02-28 17:14] LABS: BILIRUBIN,URINE NEGATIVE (NEGATIVE); COLOR,URINE YELLOW (YELLOW); LEUKOCYTE ESTERASE ,URINE NEGATIVE (NEGATIVE); NITRITE, URINE NEGATIVE (NEGATIVE); PH,URINE 6.5 (5.0-8.0); PROTEIN,URINE NEGATIVE (NEGATIVE); UGLUCOSE NEGATIVE (NEGATIVE); UROBILINOGEN,URINE 0.2 EU/dL (0.2)
[2021-02-28 17:26] LABS: CALCIUM, SERUM 8.9 mg/dL (8.5-10.1); CARBON DIOXIDE 31 mmol/L (21-32); CHLORIDE 98 mmol/L (98-107); CREATININE 1.3 mg/dL (0.6-1.3); GLUCOSE 126 mg/dL (74-106); POTASSIUM 3.1 mmol/L (3.5-5.1); SODIUM SERUM 137 mmol/L (136-145); UREA NITROGEN, BLOOD 19 mg/dL (7-18)
[2021-02-28] MEDS ORDERED: POTASSIUM CHLORIDE 20 MEQ TAB.PRT.SR PO ONE ×2 (18:30→18:39)
[2021-02-28 18:42] LABS: ALANINE AMINOTRANSFERASE 39 U/L (12-78); ALBUMIN 3.8 g/dL (3.4-5.0); ALKALINE PHOSPHATASE 82 U/L (46-116); ASPARTATE AMINOTRANSFERASE 30 U/L (15-37); BILIRUBIN,DIRECT 0.1 mg/dL (0.0-0.2); BILIRUBIN,TOTAL 0.3 mg/dL (0.2-1.0)
[2021-02-28 18:47] LABS: ACETAMINOPHEN < 0 ug/ml (10-30)
[2021-02-28 18:55] LABS: ALCOHOL, BLOOD 235 mg/dL (0-0)
[2021-03-01 01:51] VITALS: BP 142/79
== END 2021-03-01 01:52 ==
LOC: ER 15:40
DX: R45.851 Suicidal ideations (principal); E87.6 Hypokalemia; F10.129 Alcohol abuse with intoxication, unspecified; Y90.7 Blood alcohol level of 200-239 mg/100 ml; D64.9 Anemia, unspecified; F17.210 Nicotine dependence, cigarettes, uncomplicated; F20.0 Paranoid schizophrenia; G40.909 Epilepsy, unspecified, not intractable, without status epilepticus; I10 Essential (primary) hypertension; F32.9 Major depressive disorder, single episode, unspecified
CPT/HCPCS: 36415; 80048; 80076; 80299; 80307; 80320 ×2; 81003; 85025; 87426; 99285; C9803; G0480

== ENCOUNTER 2021-03-08 06:38 | Emergency (ER) | payer MEDICAID ==
[~2021-03-08] VITALS: Ht 165.1 cm; Wt 90.7 kg
--- NOTE | 2021-03-08 07:10 | NUR ---
ASSUME PT CARE, RESTING IN BED. VERBALLY RESPONSIVE. PER REPORT, ETOH AND SUICIAL IDEATION W/ PLAN TO RUN INTO TRAFFIC. PT SLEEPING BUT EASILY AROUSABLE AND VERBALLY RESPONSIVE. STABLE VITALS, ADMITS TO ETOH. AWAITING MD BARTLETT.
[2021-03-08 07:12] LABS: BILIRUBIN,URINE NEGATIVE (NEGATIVE); COLOR,URINE YELLOW (YELLOW); LEUKOCYTE ESTERASE ,URINE NEGATIVE (NEGATIVE); NITRITE, URINE NEGATIVE (NEGATIVE); PH,URINE 5.5 (5.0-8.0); PROTEIN,URINE 100 mg/dl (NEGATIVE); UGLUCOSE NEGATIVE (NEGATIVE); UROBILINOGEN,URINE 0.2 EU/dL (0.2)
--- NOTE | 2021-03-08 07:25 | NUR ---
CUSTOMS EXAMINER AT BEDSIDE FOR BLOOD DRAW.
[2021-03-08 07:26] LABS: BACTERIA,URINE None seen /HPF (None Seen); RBC,URINE 0-2 /HPF (0-2); SQUAMOUS EPITHELIAL CELL,UR Rare /HPF (None Seen); WBC,URINE 0-2 /HPF (0-3)
[2021-03-08 07:35] LABS: BASOPHILS % (AUTO) 0.9 % (0.0-2.0); EOSINOPHILS % (AUTO) 0.6 % (0.0-6.0); HEMATOCRIT 41 % (39-51); HEMOGLOBIN 13.2 g/dL (13.5-17.5); LYMPHOCYTES # (AUTO) 2.4 /CMM (0.8-4.8); LYMPHOCYTES % (AUTO) 50.6 % (20.0-44.0); MEAN CORPUSCULAR HGB CONC 32 g/dl (31.0-36.0); MEAN CORPUSCULAR VOLUME 87 fL (80-96); MONOCYTES # (AUTO) 0.3 /CMM (0.1-1.30); MONOCYTES % (AUTO) 5.5 % (2.0-12.0); NEUTROPHILS % (AUTO) 42.4 % (43.0-81.0); PLATELET COUNT (AUTO) 312 /CMM (150-450); RED BLOOD CELL COUNT(AUTO) 4.69 MIL/uL (4.5-6.0); WHITE BLOOD COUNT (AUTO) 4.8 K/uL (4.3-11.0)
[2021-03-08 07:50] LABS: CALCIUM, SERUM 9.2 mg/dL (8.5-10.1); CARBON DIOXIDE 31 mmol/L (21-32); CHLORIDE 101 mmol/L (98-107); CREATININE 1.1 mg/dL (0.6-1.3); GLUCOSE 114 mg/dL (74-106); POTASSIUM 3.3 mmol/L (3.5-5.1); SODIUM SERUM 143 mmol/L (136-145); UREA NITROGEN, BLOOD 16 mg/dL (7-18)
[2021-03-08 07:55] LABS: ALANINE AMINOTRANSFERASE 35 U/L (12-78); ALBUMIN 3.8 g/dL (3.4-5.0); ALCOHOL, BLOOD 286 mg/dL (0-0); ALKALINE PHOSPHATASE 71 U/L (46-116); ASPARTATE AMINOTRANSFERASE 34 U/L (15-37); BILIRUBIN,DIRECT 0.1 mg/dL (0.0-0.2); BILIRUBIN,TOTAL 0.2 mg/dL (0.2-1.0); TOTAL PROTEIN, SERUM 9.2 g/dL (6.4-8.2)
[2021-03-08 07:56] LABS: ACETAMINOPHEN < 10 ug/ml (10-30)
--- NOTE | 2021-03-08 12:20 | NUR ---
PT PROVIDED W MEAL TRAY. SITTER AT BEDSIDE.
--- NOTE | 2021-03-08 14:55 | NUR ---
Purchase Analyst note: Patient came to the ED presenting with SI. Per ED physicians notes, patient has plans to hurt himself and run into traffic; patient agrees to voluntary psychiatric hospitalization. At 1040, DARIUS spoke with RN Deo, who stated that patient is not medically cleared yet, as patients alcohol level was still very high. DARIUS to fax clinicals to [facility] [phone], and will follow up with additional information once patient is medically cleared.
--- NOTE | 2021-03-08 14:57 | NUR ---
Furnace Repair Mechanic note: DARIUS faxed clinicals to Jhonny at [facility] [phone] and contacted cdl program coordinator Jhonny [phone]. Jhonny stated that he will hold a male bed for the patient. DARIUS will remain available, as needed.
--- NOTE | 2021-03-08 19:06 | NUR ---
CLINICAL AND FACESHEET FAXED TO [facility] FOR VOLUNTARY ADMISSION.
--- NOTE | 2021-03-08 20:28 | NUR ---
TRANSFER INFORMATION: PT ACCEPTED AT [facility] ACCEPTING MD DAILY PT WILL GO TO UNIT 2 PHONE NUMBER FOR REPORT
--- NOTE | 2021-03-08 21:23 | NUR ---
[facility] CALLED FOR TRANSPORT. RESERVATION #[id number]
--- NOTE | 2021-03-08 22:17 | NUR ---
[facility] ETA 1 1/2-2HRS
[2021-03-08 23:37] VITALS: BP 141/83
--- NOTE | 2021-03-08 23:42 | NUR ---
REPORT GIVEN TO KAY MIGUEL FOR AMY
--- NOTE | 2021-03-09 00:01 | NUR ---
REPORT GIVEN TO TRANSPORT TEAM FOR AMY. AND TRANSFERRING RESPONSIBILITIES.
--- NOTE | 2021-03-09 00:10 | NUR ---
PT TRANSFERED TO [facility]
--- NOTE | 2021-03-09 00:16 | NUR ---
PT WAS PICKED UP BY lens assistant FROM [facility]IA [facility] AND WS TRANSFERRED TO [facility] IN STABLE CONDITION. ALL BELONGINGS WERE PICKED UP
== END 2021-03-09 00:38 ==
LOC: ER 06:40
DX: R45.851 Suicidal ideations (principal); F20.0 Paranoid schizophrenia; F10.129 Alcohol abuse with intoxication, unspecified; Y90.8 Blood alcohol level of 240 mg/100 ml or more; G40.909 Epilepsy, unspecified, not intractable, without status epilepticus; Z20.822 Contact with and (suspected) exposure to COVID-19; I10 Essential (primary) hypertension
CPT/HCPCS: 36415; 80048; 80076; 80299; 80307; 80320 ×2; 81001; 85025; 87426; 99285; C9803; G0480

== ENCOUNTER 2021-04-02 17:25 | Emergency (ER) | payer MEDICAID ==
[~2021-04-02] VITALS: Ht 165.1 cm; Wt 97.1 kg
--- NOTE | 2021-04-02 17:25 | NUR ---
PT BIB SELF C/O FOR PSYCH MED CLEARANCE AND SI. PT IS AAOX4, NOT IN RESPIRATORY DISTRESS, V/S STABLE, KEPT RESTED AND COMFORTABLE. WILL CONTINUE TO MONITOR.
--- NOTE | 2021-04-02 18:26 | NUR ---
URINE SPECIMEN COLLECTED AND SENT TO LAB.
[2021-04-02 18:53] LABS: BILIRUBIN,URINE NEGATIVE (NEGATIVE); COLOR,URINE YELLOW (YELLOW); LEUKOCYTE ESTERASE ,URINE NEGATIVE (NEGATIVE); NITRITE, URINE NEGATIVE (NEGATIVE); PROTEIN,URINE 100 mg/dl (NEGATIVE); UGLUCOSE NEGATIVE (NEGATIVE); UROBILINOGEN,URINE 0.2 EU/dL (0.2)
[2021-04-02 19:00] LABS: BACTERIA,URINE RARE /HPF (None Seen); WBC,URINE 0-2 /HPF (0-3)
[2021-04-02 19:36] LABS: CALCIUM, SERUM 9.7 mg/dL (8.5-10.1); CARBON DIOXIDE 23 mmol/L (21-32); CHLORIDE 102 mmol/L (98-107); GLUCOSE 102 mg/dL (74-106); POTASSIUM 3.1 mmol/L (3.5-5.1); SODIUM SERUM 140 mmol/L (136-145); UREA NITROGEN, BLOOD 10 mg/dL (7-18)
[2021-04-02 19:41] LABS: ALANINE AMINOTRANSFERASE 43 U/L (12-78); ALBUMIN 3.9 g/dL (3.4-5.0); ALCOHOL, BLOOD 275 mg/dL (0-0); ALKALINE PHOSPHATASE 80 U/L (46-116); ASPARTATE AMINOTRANSFERASE 42 U/L (15-37); BILIRUBIN,DIRECT 0.1 mg/dL (0.0-0.2); BILIRUBIN,TOTAL 0.5 mg/dL (0.2-1.0); TOTAL PROTEIN, SERUM 9.5 g/dL (6.4-8.2)
[2021-04-02 19:42] LABS: ACETAMINOPHEN < 2 ug/ml (10-30)
--- NOTE | 2021-04-02 19:45 | NUR ---
ASSUMED CARE FOR THIS PT. PT AAOX4, RESPIRATIONS EVEN AND UNLABORED ON RA W/ NAD NOTED. PT STATES " I AM HERE TO GO TO [facility]." SITTER AT BEDSIDE FOR SAFETY. WILL CONTINUE TO MONITOR PT
[2021-04-02 20:08] LABS: BASOPHILS % (AUTO) 0.5 % (0.0-2.0); EOSINOPHILS % (AUTO) 0.3 % (0.0-6.0); HEMATOCRIT 46 % (39-51); HEMOGLOBIN 14.3 g/dL (13.5-17.5); LYMPHOCYTES # (AUTO) 1.4 /CMM (0.8-4.8); LYMPHOCYTES % (AUTO) 35.1 % (20.0-44.0); MEAN CORPUSCULAR HGB CONC 31 g/dl (31.0-36.0); MEAN CORPUSCULAR VOLUME 92 fL (80-96); MONOCYTES # (AUTO) 0.3 /CMM (0.1-1.30); MONOCYTES % (AUTO) 7.5 % (2.0-12.0); NEUTROPHILS # (AUTO) 2.2 /CMM (1.8-8.9); NEUTROPHILS % (AUTO) 56.6 % (43.0-81.0); PLATELET COUNT (AUTO) 260 /CMM (150-450); RED BLOOD CELL COUNT(AUTO) 5.01 MIL/uL (4.5-6.0); WHITE BLOOD COUNT (AUTO) 3.9 K/uL (4.3-11.0)
--- NOTE | 2021-04-03 02:15 | NUR ---
PT ASLEEP IN BED. VSS. WILL CONTINUE TO MONITOR PT. SITTER AT BEDSIDE FOR SAFETY.
--- NOTE | 2021-04-03 04:41 | NUR ---
PT RESTING COMFORTABLY IN BED. VSS. WILL CONTINUE TO MONITOR PT. SITTER AT BEDSIDE FOR SAFETY
--- NOTE | 2021-04-03 07:42 | NUR ---
[facility]
--- NOTE | 2021-04-03 07:49 | NUR ---
ASSESSED PT ON BED ASLEEP EASILY AROUSABLE, NOT IN RESPIRATORY DISTRESS, V/S STABLE, KEPT RESTED AND COMFORTABLE. WILL CONTINUE TO MONITOR.
[2021-04-03] MEDS ORDERED: TRAZ-182 PO (09:11)
[2021-04-03] MEDS ORDERED: LEVETIRACETAM (250 MG) 250 MG TABLET PO ONE (09:14)
[2021-04-03] MEDS ORDERED: HYDROCHLOROTHIAZIDE 25 MG TABLET ONE (09:14)
[2021-04-03] MEDS: LEVETIRACETAM (250 MG) 250 MG TABLET PO ONE (09:15)
[2021-04-03] MEDS: HYDROCHLOROTHIAZIDE 25 MG TABLET PO ONE (09:18)
--- NOTE | 2021-04-03 10:12 | NUR ---
[facility] [address]ER DR. BUENROSTRO [phone] UNIT TWO AFTER 1130 [facility].
--- NOTE | 2021-04-03 10:19 | NUR ---
CALLED TRANSPORT AM ETA 1300
--- NOTE | 2021-04-03 10:31 | NUR ---
REPORT GIVEN TO LAMONT GUPTA OF [facility]
[2021-04-03 13:57] VITALS: BP 146/87
--- NOTE | 2021-04-03 13:57 | NUR ---
REPORT GIVEN TO EMS FOR PT TRANSFER TO [facility].
== END 2021-04-03 14:02 ==
LOC: ER 17:27
DX: F10.129 Alcohol abuse with intoxication, unspecified (principal); Y90.8 Blood alcohol level of 240 mg/100 ml or more; F32.9 Major depressive disorder, single episode, unspecified; F20.0 Paranoid schizophrenia; Z91.14 Patient's other noncompliance with medication regimen; I10 Essential (primary) hypertension; G40.909 Epilepsy, unspecified, not intractable, without status epilepticus; Z79.899 Other long term (current) drug therapy; Z20.822 Contact with and (suspected) exposure to COVID-19
CPT/HCPCS: 36415 ×2; 80048; 80076; 80299; 80307; 80320 ×3; 81001; 84484; 85025; 87426; 99285; C9803; G0480

== ENCOUNTER 2021-04-22 18:57 | Emergency (ER) | payer MEDICAID ==
[~2021-04-22] VITALS: Ht 165.1 cm; Wt 108.9 kg
[~2021-04-22 18:57] MED LIST changes: +TRAZ-182 PO
--- NOTE | 2021-04-22 19:01 | NUR ---
+SI no plan, for medical clearance for psych admission at [facility]. Breathing evenly and unlabored. Will continue to monitor accordingly.
[2021-04-22 19:31] LABS: BILIRUBIN,URINE NEGATIVE (NEGATIVE); COLOR,URINE YELLOW (YELLOW); LEUKOCYTE ESTERASE ,URINE NEGATIVE (NEGATIVE); NITRITE, URINE NEGATIVE (NEGATIVE); PROTEIN,URINE 100 mg/dl (NEGATIVE); UGLUCOSE NEGATIVE (NEGATIVE); UROBILINOGEN,URINE 0.2 EU/dL (0.2)
[2021-04-22 19:38] LABS: BACTERIA,URINE RARE /HPF (None Seen); SQUAMOUS EPITHELIAL CELL,UR 0-2 /HPF (None Seen); WBC,URINE 0-2 /HPF (0-3)
[2021-04-22 19:50] LABS: BASOPHILS # (AUTO) 0.1 /CMM (0.0-0.2); BASOPHILS % (AUTO) 1.3 % (0.0-2.0); EOSINOPHILS % (AUTO) 0.3 % (0.0-6.0); HEMATOCRIT 43 % (39-51); HEMOGLOBIN 14.2 g/dL (13.5-17.5); LYMPHOCYTES # (AUTO) 2.3 /CMM (0.8-4.8); LYMPHOCYTES % (AUTO) 40.9 % (20.0-44.0); MEAN CORPUSCULAR HGB CONC 33 g/dl (31.0-36.0); MEAN CORPUSCULAR VOLUME 88 fL (80-96); MONOCYTES # (AUTO) 0.3 /CMM (0.1-1.30); MONOCYTES % (AUTO) 5.9 % (2.0-12.0); NEUTROPHILS # (AUTO) 2.9 /CMM (1.8-8.9); NEUTROPHILS % (AUTO) 51.6 % (43.0-81.0); PLATELET COUNT (AUTO) 273 /CMM (150-450); RED BLOOD CELL COUNT(AUTO) 4.89 MIL/uL (4.5-6.0); WHITE BLOOD COUNT (AUTO) 5.6 K/uL (4.3-11.0)
[2021-04-22 20:09] LABS: ALBUMIN 4.2 g/dL (3.4-5.0); BILIRUBIN,DIRECT 0.2 mg/dL (0.0-0.2); BILIRUBIN,TOTAL 0.7 mg/dL (0.2-1.0); CALCIUM, SERUM 9.6 mg/dL (8.5-10.1); CREATININE 1.1 mg/dL (0.6-1.3); POTASSIUM 3.1 mmol/L (3.5-5.1); TOTAL PROTEIN, SERUM 9.6 g/dL (6.4-8.2)
[2021-04-22] MEDS ORDERED: POTASSIUM CHLORIDE 20 MEQ TAB.PRT.SR PO ONE ×2 (20:30→20:32)
--- NOTE | 2021-04-23 07:28 | NUR ---
PT ASSESSED ON BED ASLEEP EASILY AROUSABLE, NOT IN RESPIRATORY DISTRESS, V/S STABLE, KEPT RESTED AND COMFORTABLE. WILL CONTINUE TO MONITOR.
--- NOTE | 2021-04-23 08:30 | NUR ---
BREAKFAST TRAY PROVIDED.
[2021-04-23] MEDS ORDERED: HYDROCHLOROTHIAZIDE 25 MG TABLET PO ONE (12:00)
[2021-04-23] MEDS ORDERED: LEVETIRACETAM (250 MG) 250 MG TABLET PO ONE ×2 (12:00→12:01)
[2021-04-23] MEDS ORDERED: HYDROCHLOROTHIAZIDE 25 MG TABLET ONE (12:01)
--- NOTE | 2021-04-23 16:12 | NUR ---
PATIENT ACCEPTED TO [facility] UNDER DR. BUENROSTRO. UNIT 1 PHONE # FOR REPORT: [phone]
--- NOTE | 2021-04-23 16:48 | NUR ---
[facility] [phone] RESERVATION IS [phone] CHECK WITH THEM IN ONE HOUR.
--- NOTE | 2021-04-23 18:55 | NUR ---
CALLED [facility] [phone] HAVING A HARD TIME FINDING TRANSPORT PER [facility]. TO TRY BACK AT 1830 IF NOT HEARED BACK FROM THEM WITH AN ETA.
--- NOTE | 2021-04-23 19:46 | NUR ---
CALLED [facility] [phone] CLAUDIA NO ETA OF YET. ASKED THEM TO CALL [facility] OR [facility] FOR TRANSPORT WITH PRESPECTIVE NUMBERS TO SEE ABOUT ETA.
--- NOTE | 2021-04-23 19:49 | NUR ---
[facility] AT 2137
[2021-04-23] MEDS ORDERED: CLONIDINE HCL 0.1 MG TABLET ONE (20:17)
[2021-04-23] MEDS ORDERED: CLONIDINE HCL 0.1 MG TABLET PO ONE (20:30)
[2021-04-23 20:51] VITALS: BP 144/81
--- NOTE | 2021-04-23 21:04 | NUR ---
REPORT GIVEN TO KIRSTEN MIGUEL FOR AMY
--- NOTE | 2021-04-23 22:03 | NUR ---
PT WAS TRAND[facility]ERRED TO [facility] IN STABLE CONDITION. ALL BELONGINGS WERE PICKED UP
--- NOTE | 2021-04-23 22:09 | NUR ---
REPORT GIVEN TO [facility] FOR TRANSPORTATION AMY
== END 2021-04-23 22:12 ==
LOC: ER 18:58
DX: F10.129 Alcohol abuse with intoxication, unspecified (principal); Y90.8 Blood alcohol level of 240 mg/100 ml or more; R45.851 Suicidal ideations; Z20.822 Contact with and (suspected) exposure to COVID-19; E87.6 Hypokalemia; F17.200 Nicotine dependence, unspecified, uncomplicated; F20.0 Paranoid schizophrenia; I10 Essential (primary) hypertension; G40.909 Epilepsy, unspecified, not intractable, without status epilepticus; Z79.899 Other long term (current) drug therapy; Z59.0 Homelessness
CPT/HCPCS: 36415 ×2; 80048; 80076; 80299; 80307; 80320 ×2; 81001; 85025; 87426; 99285; C9803; G0480

== ENCOUNTER 2021-05-13 23:44 | Emergency (ER) | payer MEDICAID ==
[~2021-05-13] VITALS: Ht 165.1 cm; Wt 108.9 kg
--- NOTE | 2021-05-13 23:44 | NUR ---
CALLED TO TRIAGE, NOT IN WAITING ROOM
--- NOTE | 2021-05-14 | NUR ---
MED CLEARANCE FOR VOL PSYCH ADMIT: SI RUN INTO TRAFFIC, DENIES HI, PT TO BED 14, CALM AND COOPERATIVE, DENIES ANY CP/SOB. NAD. VSS. PENDING ER PROVIDER TRI
[2021-05-14 02:45] LABS: CALCIUM, SERUM 9.7 mg/dL (8.5-10.1); CREATININE 1.2 mg/dL (0.6-1.3); POTASSIUM 3.7 mmol/L (3.5-5.1)
[2021-05-14 02:47] LABS: BILIRUBIN,URINE Negative (NEGATIVE); COLOR,URINE YELLOW (YELLOW); LEUKOCYTE ESTERASE ,URINE Negative (NEGATIVE); NITRITE, URINE Negative (NEGATIVE); PH,URINE 5.5 (5.0-8.0); PROTEIN,URINE Negative (NEGATIVE); UGLUCOSE Negative (NEGATIVE); UROBILINOGEN,URINE 0.2 EU/dL (0.2)
[2021-05-14 02:50] LABS: BASOPHILS % (AUTO) 0.3 % (0.0-2.0); EOSINOPHILS % (AUTO) 1.7 % (0.0-6.0); HEMATOCRIT 37 % (39-51); HEMOGLOBIN 12.2 g/dL (13.5-17.5); LYMPHOCYTES # (AUTO) 2.1 /CMM (0.8-4.8); LYMPHOCYTES % (AUTO) 43.6 % (20.0-44.0); MEAN CORPUSCULAR HGB CONC 33 g/dl (31.0-36.0); MEAN CORPUSCULAR VOLUME 88 fL (80-96); MONOCYTES # (AUTO) 0.6 /CMM (0.1-1.30); MONOCYTES % (AUTO) 11.6 % (2.0-12.0); NEUTROPHILS # (AUTO) 2.1 /CMM (1.8-8.9); NEUTROPHILS % (AUTO) 42.8 % (43.0-81.0); PLATELET COUNT (AUTO) 239 /CMM (150-450); RED BLOOD CELL COUNT(AUTO) 4.21 MIL/uL (4.5-6.0); WHITE BLOOD COUNT (AUTO) 4.9 K/uL (4.3-11.0)
[2021-05-14 03:00] LABS: ALBUMIN 3.7 g/dL (3.4-5.0); BILIRUBIN,DIRECT 0.1 mg/dL (0.0-0.2); BILIRUBIN,TOTAL 0.2 mg/dL (0.2-1.0); TOTAL PROTEIN, SERUM 8.9 g/dL (6.4-8.2)
--- NOTE | 2021-05-14 03:14 | NUR ---
PATIENT IS SLEEPING. EASILY AROUSABLE. VSS. BREATHING EVENLY AND UNLABORED ON ROOOM AIR. CONNECTED TO THE MONITOR. SITTER AT BEDSIDE.
--- NOTE | 2021-05-14 07:30 | NUR ---
Patient is resting comfortably in bed with eyes closed. Easily aroused. VSS
--- NOTE | 2021-05-14 10:11 | NUR ---
Patient is resting comfortably in bed with eyes closed. Easily aroused. VSS
--- NOTE | 2021-05-14 12:45 | NUR ---
PT AAOX4, VSS. RR EVEN & UNLABORED. CALM, COOPERATIVE & WATCHING TV. NAD NOTED AT THIS TIME. WILL CONT TO MONITOR. SITTER AT BS.
--- NOTE | 2021-05-14 14:23 | NUR ---
PT WATCHING TV, NAD NOTED AT THIS TIME. SITTER AT BS.
--- NOTE | 2021-05-14 17:28 | NUR ---
CALLED [facility] FOR FOLLOW UP ON CLINICALS. THEY RECEIVED CLINICAL INFO BUT STILL REVIEWING. WILL CALL US BACK WHEN ACCEPTED.
--- NOTE | 2021-05-14 21:26 | NUR ---
TRANSFER INFORMATION: PT ACCEPTED AT [facility] ACCEPTING MD DAILY PHONE NUMBER FOR REPORT EXT [phone]
--- NOTE | 2021-05-14 21:33 | NUR ---
[facility] CALLED FOR TRANSPORT. TRIP# [id number]
--- NOTE | 2021-05-14 21:42 | NUR ---
[facility] ETA 0130 PER [facility].
--- NOTE | 2021-05-14 21:43 | NUR ---
[facility] MADE AWARE THAT [facility] USUALLY GIVES US BETTER ETA AND STATED THAT THEY WILL TRY [facility] AND WILL CALL ME BACK WITH A BETTER ETA.
--- NOTE | 2021-05-14 21:45 | NUR ---
PER [facility] TRANSPORT IS ALREADY ARRANGED WITH [facility] AT 0130. [facility] MADE AWARE THAT I WILL TRY TO CALL [facility] DUE TO LONGER ETA FOR TRANSPORT WITH [facility].
--- NOTE | 2021-05-14 21:49 | NUR ---
TRANSPORT CALLED [facility] ETA 2340.
[2021-05-14 23:05] VITALS: BP 142/85
--- NOTE | 2021-05-14 23:07 | NUR ---
REPORT CALLED TO [facility] AWAITING TRANSPORT.
--- NOTE | 2021-05-15 00:20 | NUR ---
[facility] AT BEDSIDE FOR TRANSPORT.
== END 2021-05-15 00:36 ==
LOC: ER 23:44
DX: R45.851 Suicidal ideations (principal); F10.129 Alcohol abuse with intoxication, unspecified; Y90.7 Blood alcohol level of 200-239 mg/100 ml; Z20.822 Contact with and (suspected) exposure to COVID-19; G40.909 Epilepsy, unspecified, not intractable, without status epilepticus; F20.0 Paranoid schizophrenia; I10 Essential (primary) hypertension; Z79.899 Other long term (current) drug therapy; Z82.49 Family history of ischemic heart disease and other diseases of the circulatory system; G93.41 Metabolic encephalopathy
CPT/HCPCS: 36415; 80048; 80076; 80143; 80307; 80320 ×2; 81003; 85025; 87426; 99285; C9803; G0480

== ENCOUNTER 2021-06-19 19:55 | Emergency (ER) | payer MEDICAID ==
[~2021-06-19] VITALS: Ht 166.4 cm; Wt 93.0 kg
--- NOTE | 2021-06-19 20:00 | NUR ---
TO ER BED 14 AMBULATORY C/O SI WITH PLAN TO RUN INTO TRAFFIC. PT DENIES HI. PT REQUESTING VOLUNTARY PSYCH ADMISSION. PT AAOX4 NO ACUTE DISTRESS NOTED, RESP EVEN AND UNLABORED. PT CALM AND COOPERATIVE AT THIS TIME. PLACE PT ON HOSPITAL GOWN, ALL BELONGINGS REMOVE AND PLACED IN A LOCKED HOSPITAL LOCKER. 1;1 SITTER AT [facility] FOR PT SAFETY.
--- NOTE | 2021-06-19 20:30 | NUR ---
URINE SAMPLE COLLECTED AND SENT TO LAB.
[2021-06-19 20:52] LABS: BILIRUBIN,URINE Negative (NEGATIVE); COLOR,URINE YELLOW (YELLOW); LEUKOCYTE ESTERASE ,URINE Negative (NEGATIVE); NITRITE, URINE Negative (NEGATIVE); PH,URINE 5.5 (5.0-8.0); PROTEIN,URINE >=300 mg/dl (NEGATIVE); UGLUCOSE Negative (NEGATIVE); UROBILINOGEN,URINE 0.2 EU/dL (0.2)
--- NOTE | 2021-06-19 21:03 | NUR ---
BLOOD DRAWN BY CLERICAL RECEPTIONIST.
[2021-06-19 21:05] LABS: BASOPHILS # (AUTO) 0.1 K/uL (0.0-0.2); BASOPHILS % (AUTO) 1.1 % (0.0-2.0); EOSINOPHILS % (AUTO) 0.2 % (0.0-6.0); HEMATOCRIT 39 % (39-51); HEMOGLOBIN 12.7 g/dL (13.5-17.5); LYMPHOCYTES % (AUTO) 34.9 % (20.0-44.0); MEAN CORPUSCULAR HGB CONC 33 g/dl (31.0-36.0); MEAN CORPUSCULAR VOLUME 85 fL (80-96); MONOCYTES # (AUTO) 0.4 K/uL (0.1-1.30); MONOCYTES % (AUTO) 5.2 % (2.0-12.0); NEUTROPHILS % (AUTO) 58.6 % (43.0-81.0); PLATELET COUNT (AUTO) 306 K/uL (150-450); RED BLOOD CELL COUNT(AUTO) 4.52 MIL/uL (4.5-6.0); WHITE BLOOD COUNT (AUTO) 8.6 K/uL (4.3-11.0)
[2021-06-19 21:13] LABS: CALCIUM, SERUM 9.5 mg/dL (8.5-10.1); CREATININE 1.2 mg/dL (0.6-1.3); POTASSIUM 3.2 mmol/L (3.5-5.1)
[2021-06-19 21:19] LABS: BACTERIA,URINE RARE /HPF (None Seen); WBC,URINE 0-2 /HPF (0-3)
[2021-06-19 21:20] LABS: HYALINE CASTS, URINE Few /LPF (None Seen); MUCUS,URINE Few /LPF (None Seen)
[2021-06-19 21:28] LABS: BILIRUBIN,DIRECT 0.1 mg/dL (0.0-0.2); BILIRUBIN,TOTAL 0.3 mg/dL (0.2-1.0); TOTAL PROTEIN, SERUM 9.2 g/dL (6.4-8.2)
[2021-06-19] MEDS ORDERED: POTASSIUM CHLORIDE 20 MEQ TAB.PRT.SR PO ONE (22:10)
[2021-06-19] MEDS: POTASSIUM CHLORIDE 20 MEQ TAB.PRT.SR PO ONE (22:11)
[2021-06-19 23:05] LABS: BASOPHILS % (MANUAL) 0 % (0.0-2.0); EOSINOPHILS % (MANUAL) 0 % (0-4); LYMPHOCYTES % (MANUAL) 36 % (16-48); MONOCYTES % (MANUAL) 5 % (0-11.0); NEUTROPHILS % (MANUAL) 59 (42-76)
--- NOTE | 2021-06-20 00:02 | NUR ---
PT ASLEEP, NO ACUTE DISTRESS NOTED, RESP EVEN AND UNLABORED. CALL LIGHT WITHIN REACH. WILL CONTINUE TO MONITOR PT. 1:1 SITTER AT BEDSIDE FOR PT SAFETY.
--- NOTE | 2021-06-20 03:05 | NUR ---
REPEAT ALCOHOL LEVEL DRAWN BY CORRECTIONAL OFFICER CAPTAIN.
--- NOTE | 2021-06-20 05:31 | NUR ---
FACESHEET AND CLINICAL FAXED TO [facility] INTAKE FOR VOLUNTARY PSYCH ADMISSION.
--- NOTE | 2021-06-20 05:35 | NUR ---
PT ASLEEP IN BED.VSS.
--- NOTE | 2021-06-20 08:02 | NUR ---
FAXED MOST RECENT ETHANOL LEVEL TO [facility] INTAKE.
--- NOTE | 2021-06-20 09:59 | NUR ---
FOLLOWED UP WITH LISA MORRISON. WILL CALLBACK AFTER THEIR NURSING SUP RECEIVES THE FULL PACKET
--- NOTE | 2021-06-20 10:32 | NUR ---
PATIENT REFUSED TO GO TO [facility], DENIES SI/HI AT THIS TIME. INFORMED DR. HILL AND SEED CLEANING MANAGER KIKI RONDON.
--- NOTE | 2021-06-20 10:35 | NUR ---
SS Consult: SS Consult for ETOH, homelessness & SI. The pt. is a 56-year old Black male. Per EMR, the pt. came in to ED with C/O increasing thoughts of suicide with plans to run into traffic. Per EMR, pt. tested positive for Cannabinoids & high blood alcohol level. SW met with pt. at bedside and pt. is A&O x 4 and pt. makes good eye contact. Pt.s mood is WNL and has blood shot eyes. Pt. appears well-groomed with fair insight stating the alcohol abuse is a problem for him. SW provide dpt. with addiction resources & pt. accepted them. Pt. states he is working with his Home Person Care (FSP) worker, Latoya to get into an inpatient rehab facility. Pt. states he drinks half a pint of Vodka every other day. Pt. states he also uses weed every other day. Pt. is ambulatory and states he receives SSI & food stamps. Safety Plan: Patient denies current SI and denies thoughts of wanting to hurt himself. Patient stated that now that he has sobered up he is no longer feeling suicidal. Pt. states he has never attempted suicide in the past. Pt. states that he speak with FSP worker about 3 x/month and has a psychiatrist, Aleksey that he sees at [facility] [[address] [place] [address] ; ] 1/month. Per pt. he has been prescribed with Seroquel, Zoloft and Trazedone. Noted. DARIUS encouraged pt. to seek help if he begins to feel unsafe at home. Pt. stated she will follow up with [facility] [[address] [facility] [address], [place] [address] ]; [address] [facility] [[address] [place] [address] ] or call 911 if he begins to feel unsafe. DARIUS provided pt. with mental health resources and [place] Mental Health/Crisis Line........[phone] Suicide Prevention Center (24 Hours).......[phone] Pt. expressed understanding and is agreeable to plan. D/C Plan: Pt. denies homelessness and states he will return to previous living situation with Cousin, Mark Bhatia [phone] at [[address] [facility] ]. ADDICTION RESOURCES For Drugs and Alcohol [facility] Substance Abuse Helpline(SAS)-[facility] Outpatient treatment, residential treatment, recovery support for youth and adults [facility] www.actionfamilycounsLookwider [facility] Teen programs for drug/alcohol education and support [facility] [place]. Program for adults, sliding scale provides support and education Andria [employer] www.Halalati.Openfinance [place]; Outpatient/residential treatment programs; transition to sober living C[facility] www.cri-help.org [place]; Outpatient and residential treatment programs; transition to sober living [facility] Winston Wink[place]; Outpatient education and supportive programs for teens and adults [facility] www.oasiswomensreccitizens medical centery.org [facility]; Residential treatment and work program for females only Leslie [place] www.[facility].org [place]: Outpatient/residential treatment program for teens and young adults [place] [facility] www.[facility].org Tarza Detox, inpatient, outpatient for adults and youth [facility], [facility]. [place]; Outpatient programs and referrals to community residential programs. Alcoholics Anonymous -SFV information and meeting and schedules www.aa-intergroup.org Hw-Zxww-Jcjksjz https://al-anon.org/ [place] support groups for family of alcoholics. Marijuana Anonymous www.madistrict6.org -SFV listing of meetings Narcotics Anonymous www.na.org SOBER LIVING RESOURCES The Sober Living Network www.soberhousing.net A non-profit agency that provides resources to recovery and sober living homes throughout [place], [place], [facility] Mens Sober Living Homes: A Work in Progress, [place] [facility], [place] [facility] Womens Sober Living Homes: [facility] x [phone] My New Beginning, [place] [facility] Coed Sober Living Homes: [facility] Counseling--Outpatient [facility] [address] [facility] [address] (Specializes in in-depth psychotherapy for emotional distress: anxiety, depression, interpersonal conflicts, life transitions, childhood abuse) [facility] [address] [place] [address] (Assist with solving problem marital difficulties, separation & divorce, aging parents, & grief, chronic & terminal illness) [facility] [address] [place] [address] (Deal with loss & grief, anxiety, marital difficulties) Homebound/Mental Health Services [address], [address] [place] [address] (Provide in-home mental services to people who are incapable of leaving their homes) Organization for Needs of the Elderly Senior Service/Resource Center [address] [place] [address] [facility] [address] [place] [address] Mental Health Services Heather Layton [address] [place] [address] Services: Outpatient therapy for children, teens, young adults, adults, older adults, and families; Psychiatric services, medication support Psychiatric Outpatient Services [facility] Partial Hospitalization and Intensive Outpatient Program (Managed Care and [place] Only)[address] [facility] [phone] [facility] Partial Hospitalization and Outpatient Bbqtmsw87720 [facility] [address] [place], [place] [phone] [facility] Partial Hospitalization and Outpatient Fpjlbzi4070 [place], [place] [phone] [facility] Uiu[address] [facility] [address] [place], [place] [phone] [facility] Partial Hospitalization and Outpatient Tzmtewc28621 [place], [phone] Crisis and Hotline Telephone Numbers 24-Hour service unless stated [place] Crisis Hotlines: [facility] Mental Health/Crisis Line........788.395.2995 Suicide Prevention Center (24 Hours).......[phone] Suicide Prevention Crisis Center.......[phone] (24 Hours) Assaults Against Women Hotline.........599.831.5416 (24 Hours -- [facility]) Women and Children Crisis Halfway...........229.333.6484 (24 Hours) Child Abuse Hotline............320.479.1659 [facility] Services Rape Treatment Center (24 Hours)..........[phone] Alcoholics Anonymous (24 Hours)..........[phone] Cocaine Anonymous (24 Hours)............344.416.8701 Narcotics Anonymous (24 Hours)..........[phone] [facility] [address] [place], [place] [id number]
--- NOTE | 2021-06-20 10:50 | NUR ---
PATIENT IS NO LONGER SUICIDAL, A/OX4, AMBULATORY WITH STEADY GAIT. RESOURCES PROVIDED. Patient given written and verbal discharge instructions. Patient verbalizes understanding of instructions. Patient is ambulatory with steady gait. Refuses offer of halfway placement. Patient given list of available shelters in surrounding area.
[2021-06-20 10:52] VITALS: BP 141/82
--- NOTE | 2021-06-20 10:52 | NUR ---
PATIENT LEFT WITHOUT DISCHARGE PAPERWORKS, REFUSED TO WAIT FOR DC PAPERS.
== END 2021-06-20 10:52 | disposition home or self-care (01) ==
LOC: ER 19:58
DX: R45.851 Suicidal ideations (principal); F10.129 Alcohol abuse with intoxication, unspecified; Y90.7 Blood alcohol level of 200-239 mg/100 ml; F32.9 Major depressive disorder, single episode, unspecified; F20.0 Paranoid schizophrenia; I10 Essential (primary) hypertension; Z91.013 Allergy to seafood; Z20.822 Contact with and (suspected) exposure to COVID-19; E87.6 Hypokalemia; G40.909 Epilepsy, unspecified, not intractable, without status epilepticus
CPT/HCPCS: 36415 ×2; 80048; 80076; 80143; 80307; 80320 ×3; 81001; 85007; 85025; 87426; 99285; C9803; G0480

== ENCOUNTER 2021-06-20 21:34 | Emergency (ER) | payer MEDICAID ==
[~2021-06-20] VITALS: Ht 166.4 cm; Wt 93.0 kg
[~2021-06-20 21:34] MED LIST changes: -SERT-439 PO; +SERT100T12 PO
--- NOTE | 2021-06-20 21:40 | NUR ---
BIBSELF C/O SI WITH PLAN TO RUN INTO TRAFFIC. DENIES HI. REQUESTING VOLUNTARY PSYCH ADMISSION. PT AAOX4 NO ACUTE DISTRESS NOTED, RESP EVEN AND UNLABORED. PT DENIES PAIN OR DISCOMFORT AT THIS TIME. PT CALM AND COOPERAITVE AT THIS TIME.
--- NOTE | 2021-06-20 21:50 | NUR ---
BLOOD DRAWN BY SURVEYOR CHAIN HELPER.
--- NOTE | 2021-06-20 21:51 | NUR ---
URINE SAMPLE COLLECTED AND SENT TO LAB.
[2021-06-20 21:54] LABS: BASOPHILS # (AUTO) 0.1 K/uL (0.0-0.2); BASOPHILS % (AUTO) 1.3 % (0.0-2.0); EOSINOPHILS % (AUTO) 0.3 % (0.0-6.0); HEMATOCRIT 40 % (39-51); HEMOGLOBIN 13.2 g/dL (13.5-17.5); LYMPHOCYTES # (AUTO) 2.9 K/uL (0.8-4.8); LYMPHOCYTES % (AUTO) 37.8 % (20.0-44.0); MEAN CORPUSCULAR HGB CONC 33 g/dl (31.0-36.0); MEAN CORPUSCULAR VOLUME 85 fL (80-96); MONOCYTES # (AUTO) 0.5 K/uL (0.1-1.30); MONOCYTES % (AUTO) 6.5 % (2.0-12.0); NEUTROPHILS # (AUTO) 4.2 K/uL (1.8-8.9); NEUTROPHILS % (AUTO) 54.1 % (43.0-81.0); PLATELET COUNT (AUTO) 317 K/uL (150-450); RED BLOOD CELL COUNT(AUTO) 4.69 MIL/uL (4.5-6.0); WHITE BLOOD COUNT (AUTO) 7.8 K/uL (4.3-11.0)
[2021-06-20 22:07] LABS: BILIRUBIN,URINE Negative (NEGATIVE); COLOR,URINE YELLOW (YELLOW); LEUKOCYTE ESTERASE ,URINE Negative (NEGATIVE); NITRITE, URINE Negative (NEGATIVE); PROTEIN,URINE >=300 mg/dl (NEGATIVE); UGLUCOSE Negative (NEGATIVE); UROBILINOGEN,URINE 0.2 EU/dL (0.2)
[2021-06-20 22:13] LABS: CALCIUM, SERUM 9.4 mg/dL (8.5-10.1); CARBON DIOXIDE 24 mmol/L (21-32); CHLORIDE 98 mmol/L (98-107); CREATININE 1.1 mg/dL (0.6-1.3); GLUCOSE 105 mg/dL (74-106); POTASSIUM 3.1 mmol/L (3.5-5.1); SODIUM SERUM 140 mmol/L (136-145); UREA NITROGEN, BLOOD 9 mg/dL (7-18)
[2021-06-20 22:18] LABS: BACTERIA,URINE Rare /HPF (None Seen); SQUAMOUS EPITHELIAL CELL,UR Few /HPF (None Seen); WBC,URINE NONE SEEN /HPF (0-3)
[2021-06-20 22:19] LABS: ALANINE AMINOTRANSFERASE 30 U/L (12-78); ALBUMIN 4.2 g/dL (3.4-5.0); ALCOHOL, BLOOD 227 mg/dL (0-0); ALKALINE PHOSPHATASE 89 U/L (46-116); ASPARTATE AMINOTRANSFERASE 29 U/L (15-37); BILIRUBIN,DIRECT 0.1 mg/dL (0.0-0.2); BILIRUBIN,TOTAL 0.3 mg/dL (0.2-1.0); TOTAL PROTEIN, SERUM 9.3 g/dL (6.4-8.2)
[2021-06-20 22:26] LABS: ACETAMINOPHEN < 2 ug/ml (10-30)
--- NOTE | 2021-06-21 00:05 | NUR ---
PT ASLEEP, NO ACUTE DISTRESS NOTED, RESP EVEN AND UNLABORED. CALL LIGHT WITHIN REACH. WILL CONTINUE TO MONITOR PT CLOSELY.
[2021-06-21] MEDS ORDERED: POTASSIUM CHLORIDE 20 MEQ TAB.PRT.SR PO ONE ×2 (02:35)
--- NOTE | 2021-06-21 11:30 | NUR ---
Precision Honing Machine Operator consult: services clerk consult requested for suicidal ideation, homelessness, and substance use. Patient is a 56-year-old, male. SW met with patient at his bedside in the emergency department. Patient presented calm and was resting. Patient was alert and oriented x4. Per chart, patient was brought in by self on 06/20/21 and presented with complaints of suicidal ideation with a plan to run intro traffic. Patient requested voluntary psychiatric admission. Patient stated that he has been homeless for the last two months but has been able to stay with his cousins or in a motel. Patient reported that he has adequate support from his cousins and provided SW with contact information for his cousin, Mark Bhatia, . Patient stated that his current source of income is [employer]. SW asked the patient about his history of substance use. Patient reported alcohol and cannabis use, "every other day." SW assessed patient's history of mental illness. Patient reported history of Schizophrenia and stated that he currently takes, Zoloft, Seroquel and Trazodone. Patient reported history of visual and auditory hallucinations and stated, "I see people following me or telling me to harm myself." Patient denied current suicidal and homicidal ideation. SW offered the patient resources for homelessness, substance use, and outpatient mental health services. Patient accepted the resources and thanked DARIUS stating that he would follow up independently. Patient signed the homeless waiver and SW filed the waiver in the patient's chart. Patient requested voluntary psychiatric admission due to intermittent SI. DARIUS will fax clinicals to [facility], , for review. PLAN: DARIUS will fax clinicals to [facility], , for review. RESOURCES: Year-round shelters: [facility] [place] [address] [place] [address] ; [place] [facility] [place] [address] [place] [address]; [facility] Ohdgaoi7557 [facility]. [facility] [address] SPA 4 | [facility] [place] Provider: First to Serve Address: [address] [place] [address], [facility] # of Beds: 48 Population Served: [facility] Provider: First to Serve Address: [address] [facility], [address] # of Beds: 73 Population Served: Coed SPA 6 | [facility] Provider: Home at Last Address: [address] [facility], [address] # of Beds: 63 Population Served: Coed SPA 3 | [facility] Provider: [facility] [place] Address: [address] [facility], [address] # of Beds: 75 Population Served: Coed SPA 8 | [facility] Provider: [facility] [place] Address: [address] [facility], [address] # of Beds: 80 Population Served: Ummd SPA 1 | [facility] Provider: [facility] [place] Address: [id number] [place] [address], [facility] # of Beds: 85 Population Served: Ummd [facility] 2 | [facility] Provider: [facility] Address: Confidential (please call for location) # of Beds: 52 Population Served: Ummd [facility] 4 | [facility] Provider: [facility] Address: [address] [facility] [facility], [address] # of Beds: 49 Population Served: Stas [facility] Provider: First To Serve Address: [address] [facility], [address] # of Beds: 27 Population Served: Stas Hygiene: [place] [facility]: [address] [place] ; [facility] [place] [facility] [address] [facility] ; [facility] [address] Foster . Food Resources: [place] [employer] Pantry at [facility]- [address] [place]; Meet Each Need with Dignity ([facility]) [address] [facility]; [facility] Food Pantry [address] [facility]; [facility] 85[address] [place] [facility] [place]. Mental Health resources provided: [facility] [address] [place] [address] ; [facility] [address] [facility] [address], [place], [place] [phone] ; [facility] [address] [facility] [place], [place] [phone] ; [facility] [address] [place], [place] [phone] Healthcare Clinics: [facility] [address] [facility], [address] [place]. [place] ; [facility] [address] [facility] [address] [place] [address]; [facility] [address] [facility]. [place] [phone] Counseling--Outpatient [facility] [address] [facility], [address] [place], [place] [phone] (Specializes in in-depth psychotherapy for emotional distress: anxiety, depression, interpersonal conflicts, life transitions, childhood abuse) PSYCHIATRIC OUTPATIENT SERVICES [facility] Partial Hospitalization and Intensive Outpatient Program (Managed Care and [place] Only) [address] [facility]. [facility] [address]95728 [facility] Partial Hospitalization and Outpatient Program [address] [facility]. [address] [place], [place] [phone] [facility] Partial Hospitalization and Outpatient Program [address] [facility]. [place], [place] [phone] [facility] Mental Health [facility] [address] [facility]. [address] [place], [place] [phone] [facility] Partial Hospitalization and Outpatient Program [address] [place], [place] [phone] Substance use resources provided included: [facility] Substance Abuse Self-Helpline (SAS) ; CRI -HELP [address] [facility]. [place] [address] ; [facility] [address] [facility] [address] ; [facility] [address] [facility] [address] ; [facility] 3[address] Winston Winkler [facility] [address] ; [facility] 909 [facility] [phone] ; [facility] [place]; Cri-Help [place]; [facility]; Alcoholics Anonymous -SFV
--- NOTE | 2021-06-21 11:43 | NUR ---
Glaciologist note: DARIUS faxed clinicals to [facility], , for review.
--- NOTE | 2021-06-21 13:00 | NUR ---
FOLLOWED UP WITH [facility], CLINICALS STILL BEING REVIEWED.
--- NOTE | 2021-06-21 15:30 | NUR ---
RECIEVED A CALL FROM ART AT [facility]. PT ACCEPTED UNDER THE CARE OF DR. JOHN. NUMBER FOR REPORT IS [phone].
--- NOTE | 2021-06-21 16:11 | NUR ---
CALLED [facility] FOR TRANSPORT TO [facility]. ETA 60 MINUTES.
--- NOTE | 2021-06-21 17:00 | NUR ---
report given to nurse Childress
--- NOTE | 2021-06-21 18:00 | NUR ---
REPORT GIVEN TO [facility] UNIT #[id number].
[2021-06-21 18:20] VITALS: BP 149/81
--- NOTE | 2021-06-21 18:20 | NUR ---
THE PATIENT IS DISCHARGED FROM ER GOING [facility]. PATIENT IS STABLE CONDITION.
== END 2021-06-21 18:21 ==
LOC: ER 21:38
DX: R45.851 Suicidal ideations (principal); R31.29 Other microscopic hematuria; E87.6 Hypokalemia; Z20.822 Contact with and (suspected) exposure to COVID-19; R80.9 Proteinuria, unspecified; F20.0 Paranoid schizophrenia; G40.909 Epilepsy, unspecified, not intractable, without status epilepticus; I10 Essential (primary) hypertension; Z91.013 Allergy to seafood; Z79.899 Other long term (current) drug therapy; F10.129 Alcohol abuse with intoxication, unspecified; Y90.7 Blood alcohol level of 200-239 mg/100 ml
CPT/HCPCS: 36415 ×2; 80048; 80076; 80143; 80307; 80320 ×3; 81001; 85025; 87426; 99285; C9803; G0480

== ENCOUNTER → 2021-07-06 | Emergency (ER) | payer MEDICAID ==
[~2021-07-06] VITALS: Ht 166.4 cm; Wt 93.0 kg
--- NOTE | 2021-07-06 21:20 | NUR ---
TO ER BED REQUESTING MEDICAL CLEARANCE FOR VOLUNTARY PSYCH ADMISSION. PT C/O SI WITH PLAN TO RUN INTO TRAFFIC. DENIES HI. PT AAOX4 NO ACUTE DISTRESS NOTED, RESP EVEN AND UNLABORED. PT CALM AND COOPERATIVE AT THIS TIME. PT ADMITS TO DRINKING A PINT OF ALCOHOL AND SMOKING MARIJUANA.
--- NOTE | 2021-07-06 21:43 | NUR ---
BLOOD DRAWN BY OCCUPATIONAL THERAPY CO DIRECTOR.
[2021-07-06 21:55] LABS: BASOPHILS # (AUTO) 0.1 K/uL (0.0-0.2); BASOPHILS % (AUTO) 1.1 % (0.0-2.0); EOSINOPHILS % (AUTO) 0.3 % (0.0-6.0); HEMATOCRIT 39 % (39-51); HEMOGLOBIN 13.1 g/dL (13.5-17.5); LYMPHOCYTES # (AUTO) 2.4 K/uL (0.8-4.8); LYMPHOCYTES % (AUTO) 37.2 % (20.0-44.0); MEAN CORPUSCULAR HGB CONC 33 g/dl (31.0-36.0); MEAN CORPUSCULAR VOLUME 85 fL (80-96); MONOCYTES # (AUTO) 0.3 K/uL (0.1-1.30); MONOCYTES % (AUTO) 4.5 % (2.0-12.0); NEUTROPHILS # (AUTO) 3.7 K/uL (1.8-8.9); NEUTROPHILS % (AUTO) 56.9 % (43.0-81.0); PLATELET COUNT (AUTO) 430 K/uL (150-450); RED BLOOD CELL COUNT(AUTO) 4.65 MIL/uL (4.5-6.0); WHITE BLOOD COUNT (AUTO) 6.5 K/uL (4.3-11.0)
[2021-07-06 21:56] LABS: BILIRUBIN,URINE SMALL (NEGATIVE); COLOR,URINE YELLOW (YELLOW); LEUKOCYTE ESTERASE ,URINE Negative (NEGATIVE); NITRITE, URINE Negative (NEGATIVE); PH,URINE 5.5 (5.0-8.0); PROTEIN,URINE >=300 mg/dl (NEGATIVE); UGLUCOSE Negative (NEGATIVE); UROBILINOGEN,URINE 0.2 EU/dL (0.2)
[2021-07-06 22:01] LABS: CALCIUM, SERUM 9.3 mg/dL (8.5-10.1); CARBON DIOXIDE 22 mmol/L (21-32); CHLORIDE 100 mmol/L (98-107); CREATININE 1.2 mg/dL (0.6-1.3); GLUCOSE 98 mg/dL (74-106); POTASSIUM 3.4 mmol/L (3.5-5.1); SODIUM SERUM 141 mmol/L (136-145); UREA NITROGEN, BLOOD 13 mg/dL (7-18)
[2021-07-06 22:03] LABS: BACTERIA,URINE Rare /HPF (None Seen); SQUAMOUS EPITHELIAL CELL,UR Few /HPF (None Seen); WBC,URINE NONE SEEN /HPF (0-3)
[2021-07-06 22:09] LABS: ALANINE AMINOTRANSFERASE 23 U/L (12-78); ALBUMIN 3.7 g/dL (3.4-5.0); ALCOHOL, BLOOD 312 mg/dL (0-0); ALKALINE PHOSPHATASE 78 U/L (46-116); ASPARTATE AMINOTRANSFERASE 30 U/L (15-37); BILIRUBIN,DIRECT 0.1 mg/dL (0.0-0.2); BILIRUBIN,TOTAL 0.2 mg/dL (0.2-1.0); TOTAL PROTEIN, SERUM 9.7 g/dL (6.4-8.2)
[2021-07-06 22:10] LABS: ACETAMINOPHEN < 2 ug/ml (10-30)
[2021-07-07 04:00] VITALS: BP 146/81
--- NOTE | 2021-07-07 05:15 | NUR ---
PT ASLEEP, NO ACUTE DISTRESS NOTED, RESP EVEN AND UNLABORED. CALL LIGHT WITHIN REACH. WILL CONTINUE TO MONITOR PT. 1:1 SITTER AT BEDSIDE TO TAKE PT HOME.
--- NOTE | 2021-07-07 07:42 | NUR ---
THE PATIENT SLEEPING IN BED. RESPONSIVE TO VERBAL STIMULI.
--- NOTE | 2021-07-07 10:50 | NUR ---
Stock Control Supervisor consult: special services coordinator consult requested for suicidal ideation, homelessness, and substance use. Patient is a 56-year-old, male. SW met with patient at his bedside in the emergency department. Patient presented calm and was resting. Patient appeared well-groomed. Patient was alert and oriented x4. Per chart, patient presented to the hospital with suicidal ideation with a plan to run into traffic and was requested voluntary psychiatric admission. Pt reported drinking a pint of alcohol and smoking marijuana prior to presenting to the hospital. Patient stated that he has been homeless for the last month and has been able to stay with his family and friends or stay in a motel. Patient reported that he has adequate support from his family. Patient stated that his current source of income is [employer]. SW asked the patient about his history of substance use. Patient reported daily alcohol and cannabis use. SW assessed patient's history of mental illness. Patient reported history of Paranoid Schizophrenia and Depression and stated that he currently takes, Zoloft, Seroquel and Trazodone. Patient reported history of visual and auditory hallucinations. Patient stated that he sees people following him and telling him to harm himself. Patient did not endorse current hallucinations. Patient denied current suicidal and homicidal ideation. Patient stated, "I was feeling suicidal last night." Patient reported intermittent suicidal ideation with a plan to run into traffic. SW offered the patient resources for homelessness, substance use, and outpatient mental health services. Patient accepted the resources and thanked DARIUS stating that he would follow up independently. Patient signed the homeless waiver and SW filed the waiver in the patient's chart. Patient requested voluntary psychiatric admission due to intermittent SI. DARIUS will fax clinicals to [facility], , for review. PLAN: DARIUS will fax clinicals to [facility], , for review. RESOURCES: Year-round shelters: [facility] [place] [address] [place] [address] ; [facility] [place] [address] [place] [address]; [facility] [id number] [facility]. [facility] [address] SPA 4 | [facility] Provider: First to Serve Address: [address] [place] [address], [address] # of Beds: 48 Population Served: [facility] Provider: First to Serve Address: [address] [facility], [address] # of Beds: 73 Population Served: [facility] 6 | [facility] Provider: Home at Last Address: [address] [facility], [address] # of Beds: 63 Population Served: [facility] 3 | [facility] Provider: [facility] [place] Address: [address] [facility], [address] # of Beds: 75 Population Served: [facility] 8 | [facility] Provider: [facility] [place] Address: [address] [facility] [address] # of Beds: 80 Population Served: [facility] 1 | [facility] Provider: [facility] [place] Address: [address] [place] [address], [facility] # of Beds: 85 Population Served: [facility] 2 | [facility] Provider: [facility] Address: Confidential (please call for location) # of Beds: 52 Population Served: [facility] 4 | [facility] Provider: [facility] [place] Address: [address] [facility], [address] # of Beds: 49 Population Served: [facility] Provider: First To Serve Address: [address] [facility], [address] # of Beds: 27 Population Served: Umm Hygiene: [facility] [facility]: [address] [address]unkett ; [place] [facility] [address] [facility] ; [facility] [address] . Food Resources: [place] [facility] at [facility]- [address] [place]; Meet Each Need with Dignity ([facility]) [address] [place]; [facility] Food Pantry 5606 [facility]; [facility] [address] Rober[address] [place]. Mental Health resources provided: [facility] [address] [place], [place] [address] ; [facility] Health Magnet, Inc[employer] [address] [address] [facility] [address], [place], [place] [id number] ; [facility] [address] [facility] [place], [place] [phone] ; [facility] [address] [place], [place] [address] Healthcare Clinics: [facility] [address] [facility], [address] [place]. [place] ; [facility] [address] [facility] [address] [place] [address]; [facility] [address] [facility] [place] [address] [phone] Counseling--Outpatient [facility] [address] [facility] [facility], [address] [place], [place] [id number] (Specializes in in-depth psychotherapy for emotional distress: anxiety, depression, interpersonal conflicts, life transitions, childhood abuse) PSYCHIATRIC OUTPATIENT SERVICES [facility] Partial Hospitalization and Intensive Outpatient Program (Managed Care and [place] Only) [address] [facility] 252668 [facility] Partial Hospitalization and Outpatient Program [address] [place], [place] [id number] [facility] Partial Hospitalization and Outpatient Program [address] [place], [place] [id number] [facility] Health Magnet Inc [address] [facility]. [address] [place], [place] [id number] [facility] Partial Hospitalization and Outpatient Program [address] Viri [facility] Center[facility], [place] [phone] Substance use resources provided included: [facility] Substance Abuse Self-Helpline (SAS) ; CRI -HELP [address] [facility]. [place] [address] ; [facility] [address] [facility] [address] ; [facility] [address] [facility] [id number] ; [facility] 4940 [facility] [address] ; [facility] 909 [facility] [phone] ; [facility]; Cri[facility]Help [place]; [facility] [place]; Alcoholics Anonymous -SFV
--- NOTE | 2021-07-07 10:55 | NUR ---
AWAITING NEW LAB RESULTS.
--- NOTE | 2021-07-07 11:09 | NUR ---
Damage Cutter note: DARIUS faxed clinicals to [facility], , for review.
--- NOTE | 2021-07-07 12:23 | NUR ---
FAXED COVID RESULT TO [facility]
--- NOTE | 2021-07-07 13:26 | NUR ---
PT ACCEPTED TO [facility] UNDER DR. DAILY CALL [phone] [place] FOR REPORT
--- NOTE | 2021-07-07 13:29 | NUR ---
[facility] ETA 0027
--- NOTE | 2021-07-07 14:27 | NUR ---
REPORT GIVEN TO DARION MIGUEL FOR AMY.
== END ==
LOC: ER 21:25
DX: R45.851 Suicidal ideations (principal); F20.0 Paranoid schizophrenia; F19.10 Other psychoactive substance abuse, uncomplicated; Z59.0 Homelessness; E87.6 Hypokalemia; F10.129 Alcohol abuse with intoxication, unspecified; Y90.8 Blood alcohol level of 240 mg/100 ml or more; Z20.822 Contact with and (suspected) exposure to COVID-19; Z91.013 Allergy to seafood; G40.909 Epilepsy, unspecified, not intractable, without status epilepticus; Z79.899 Other long term (current) drug therapy; I10 Essential (primary) hypertension
CPT/HCPCS: 36415; 80048; 80076; 80143; 80307; 80320; 81001; 85025; 87426; 99285; C9803; G0480

== ENCOUNTER 2021-07-16 08:20 | Emergency (ER) | payer MEDICAID ==
[~2021-07-16] VITALS: Ht 165.1 cm; Wt 93.4 kg
--- NOTE | 2021-07-16 08:34 | NUR ---
CALLED TO TRIAGE,NO ANSWER
--- NOTE | 2021-07-16 08:48 | NUR ---
CAME HERE FOR MEDICAL CLEARANCE TO GO TO [facility] FOR [facility]OL[facility], WAITING FOR MD BARTLETT
[2021-07-16 09:15] LABS: EOSINOPHILS % (AUTO) 1.6 % (0.0-6.0); HEMATOCRIT 38 % (39-51); HEMOGLOBIN 12.4 g/dL (13.5-17.5); LYMPHOCYTES # (AUTO) 1.6 K/uL (0.8-4.8); LYMPHOCYTES % (AUTO) 48.4 % (20.0-44.0); MEAN CORPUSCULAR HGB CONC 33 g/dl (31.0-36.0); MEAN CORPUSCULAR VOLUME 85 fL (80-96); MONOCYTES # (AUTO) 0.4 K/uL (0.1-1.30); MONOCYTES % (AUTO) 10.6 % (2.0-12.0); NEUTROPHILS # (AUTO) 1.3 K/uL (1.8-8.9); NEUTROPHILS % (AUTO) 38.4 % (43.0-81.0); PLATELET COUNT (AUTO) 347 K/uL (150-450); RED BLOOD CELL COUNT(AUTO) 4.44 MIL/uL (4.5-6.0); WHITE BLOOD COUNT (AUTO) 3.4 K/uL (4.3-11.0)
[2021-07-16 09:15] LABS: BILIRUBIN,URINE Negative (NEGATIVE); COLOR,URINE YELLOW (YELLOW); LEUKOCYTE ESTERASE ,URINE Negative (NEGATIVE); NITRITE, URINE Negative (NEGATIVE); PH,URINE 5.5 (5.0-8.0); PROTEIN,URINE Negative (NEGATIVE); UGLUCOSE Negative (NEGATIVE); UROBILINOGEN,URINE 0.2 EU/dL (0.2)
[2021-07-16 09:52] LABS: CALCIUM, SERUM 9.7 mg/dL (8.5-10.1); CREATININE 1.3 mg/dL (0.6-1.3); POTASSIUM 3.7 mmol/L (3.5-5.1)
[2021-07-16 09:59] LABS: ALBUMIN 3.6 g/dL (3.4-5.0); BILIRUBIN,DIRECT 0.1 mg/dL (0.0-0.2); BILIRUBIN,TOTAL 0.2 mg/dL (0.2-1.0); TOTAL PROTEIN, SERUM 8.4 g/dL (6.4-8.2)
[2021-07-16 12:30] VITALS: BP 122/80
--- NOTE | 2021-07-16 13:44 | NUR ---
Patient eloped from facility. ER MD notified.
== END 2021-07-16 13:43 | disposition left against medical advice (07) ==
LOC: ER 08:26
DX: R45.851 Suicidal ideations (principal); F20.0 Paranoid schizophrenia; I10 Essential (primary) hypertension; Z91.013 Allergy to seafood; F10.129 Alcohol abuse with intoxication, unspecified; Y90.6 Blood alcohol level of 120-199 mg/100 ml; Z82.49 Family history of ischemic heart disease and other diseases of the circulatory system; Z20.822 Contact with and (suspected) exposure to COVID-19; F32.9 Major depressive disorder, single episode, unspecified; Z79.899 Other long term (current) drug therapy; G40.909 Epilepsy, unspecified, not intractable, without status epilepticus
CPT/HCPCS: 36415; 80048; 80076; 80143; 80307; 80320; 81003; 85025; 87426; 99285; C9803; G0480

== ENCOUNTER 2021-07-21 19:50 | Emergency (ER) | payer MEDICAID ==
[~2021-07-21] VITALS: Ht 165.1 cm; Wt 93.4 kg
--- NOTE | 2021-07-21 23:25 | NUR ---
MED CLEARANCE FOR VOL PSYCH ADMIT SI "RUN INTO TRAFFIC" DENIES HI, PT AAOX4, SI PRECAUTIONS INITIATED, NOT IN ANY ACUTE DISTRESS, NO SOB, VSS, PENDING ER PROVIDER TRI
[2021-07-22 00:14] LABS: BASOPHILS % (AUTO) 0.3 % (0.0-2.0); EOSINOPHILS % (AUTO) 0.9 % (0.0-6.0); HEMATOCRIT 40 % (39-51); HEMOGLOBIN 13.5 g/dL (13.5-17.5); LYMPHOCYTES # (AUTO) 2.9 K/uL (0.8-4.8); LYMPHOCYTES % (AUTO) 43.7 % (20.0-44.0); MEAN CORPUSCULAR HGB CONC 33 g/dl (31.0-36.0); MEAN CORPUSCULAR VOLUME 84 fL (80-96); MONOCYTES # (AUTO) 0.4 K/uL (0.1-1.30); MONOCYTES % (AUTO) 6.2 % (2.0-12.0); NEUTROPHILS # (AUTO) 3.3 K/uL (1.8-8.9); NEUTROPHILS % (AUTO) 48.9 % (43.0-81.0); PLATELET COUNT (AUTO) 342 K/uL (150-450); RED BLOOD CELL COUNT(AUTO) 4.84 MIL/uL (4.5-6.0); WHITE BLOOD COUNT (AUTO) 6.7 K/uL (4.3-11.0)
[2021-07-22 00:20] LABS: BILIRUBIN,URINE Negative (NEGATIVE); COLOR,URINE YELLOW (YELLOW); LEUKOCYTE ESTERASE ,URINE Negative (NEGATIVE); NITRITE, URINE Negative (NEGATIVE); PH,URINE 5.5 (5.0-8.0); PROTEIN,URINE Negative (NEGATIVE); UGLUCOSE Negative (NEGATIVE); UROBILINOGEN,URINE 0.2 EU/dL (0.2)
[2021-07-22 00:23] LABS: BACTERIA,URINE Rare /HPF (None Seen); SQUAMOUS EPITHELIAL CELL,UR Few /HPF (None Seen); WBC,URINE NONE SEEN /HPF (0-3)
[2021-07-22 00:26] LABS: ALANINE AMINOTRANSFERASE 42 U/L (12-78); ALBUMIN 4.2 g/dL (3.4-5.0); ALKALINE PHOSPHATASE 78 U/L (46-116); ASPARTATE AMINOTRANSFERASE 35 U/L (15-37); BILIRUBIN,DIRECT 0.2 mg/dL (0.0-0.2); BILIRUBIN,TOTAL 0.5 mg/dL (0.2-1.0); CALCIUM, SERUM 9.5 mg/dL (8.5-10.1); CARBON DIOXIDE 30 mmol/L (21-32); CHLORIDE 100 mmol/L (98-107); CREATININE 1.8 mg/dL (0.6-1.3); GLUCOSE 91 mg/dL (74-106); POTASSIUM 3.5 mmol/L (3.5-5.1); SODIUM SERUM 139 mmol/L (136-145); TOTAL PROTEIN, SERUM 9.6 g/dL (6.4-8.2); UREA NITROGEN, BLOOD 21 mg/dL (7-18)
[2021-07-22 00:27] LABS: ACETAMINOPHEN < 2 ug/ml (10-30); ALCOHOL, BLOOD < 3 mg/dL (0-0)
--- NOTE | 2021-07-22 05:12 | NUR ---
PT ACCEPTED AT [facility] DR. BUENROSTRO CALL FOR REPORT [phone] REINALDO
--- NOTE | 2021-07-22 05:26 | NUR ---
CALLED [facility] FOR TRANSPORT. TRIP#[id number] ETA TO FOLLOW
--- NOTE | 2021-07-22 07:10 | NUR ---
FOLLOWED UP WITH [facility] ([facility]), NO ETA YET
--- NOTE | 2021-07-22 07:21 | NUR ---
CALLED [facility]. ETA 1.5HRS
--- NOTE | 2021-07-22 07:53 | NUR ---
REPORT GIVEN TO EMS FOR PT TRANSFER TO [facility].
[2021-07-22 08:04] VITALS: BP 131/82
== END 2021-07-22 08:04 ==
LOC: ER 19:56
DX: R45.851 Suicidal ideations (principal); Z20.822 Contact with and (suspected) exposure to COVID-19; Z91.013 Allergy to seafood; F20.0 Paranoid schizophrenia; F32.9 Major depressive disorder, single episode, unspecified; I10 Essential (primary) hypertension; F12.10 Cannabis abuse, uncomplicated
CPT/HCPCS: 36415; 80048; 80076; 80143; 80307; 80320; 81001; 85025; 87426; 99285; C9803; G0480

== ENCOUNTER 2021-08-01 15:33 | Emergency (ER) | payer MEDICAID ==
[~2021-08-01] VITALS: Ht 167.6 cm; Wt 83.9 kg
--- NOTE | 2021-08-01 15:57 | NUR ---
COVID SWAB DONE AND SENT TO THE LAB
--- NOTE | 2021-08-01 16:35 | NUR ---
urine collected and sent to lab.
[2021-08-01 17:05] LABS: BASOPHILS % (AUTO) 0.6 % (0.0-2.0); EOSINOPHILS % (AUTO) 0.2 % (0.0-6.0); HEMATOCRIT 39 % (39-51); LYMPHOCYTES # (AUTO) 2.4 K/uL (0.8-4.8); LYMPHOCYTES % (AUTO) 40.4 % (20.0-44.0); MEAN CORPUSCULAR HGB CONC 33 g/dl (31.0-36.0); MEAN CORPUSCULAR VOLUME 83 fL (80-96); MONOCYTES # (AUTO) 0.7 K/uL (0.1-1.30); MONOCYTES % (AUTO) 11.4 % (2.0-12.0); NEUTROPHILS # (AUTO) 2.8 K/uL (1.8-8.9); NEUTROPHILS % (AUTO) 47.4 % (43.0-81.0); PLATELET COUNT (AUTO) 254 K/uL (150-450); RED BLOOD CELL COUNT(AUTO) 4.72 MIL/uL (4.5-6.0); WHITE BLOOD COUNT (AUTO) 5.8 K/uL (4.3-11.0)
[2021-08-01 17:07] LABS: BILIRUBIN,URINE NEGATIVE (NEGATIVE); COLOR,URINE YELLOW (YELLOW); LEUKOCYTE ESTERASE ,URINE NEGATIVE (NEGATIVE); NITRITE, URINE NEGATIVE (NEGATIVE); PROTEIN,URINE 100 mg/dl (NEGATIVE); UGLUCOSE NEGATIVE (NEGATIVE); UROBILINOGEN,URINE 0.2 EU/dL (0.2)
[2021-08-01 17:24] LABS: CALCIUM, SERUM 9.3 mg/dL (8.5-10.1); CARBON DIOXIDE 23 mmol/L (21-32); CHLORIDE 98 mmol/L (98-107); CREATININE 1.4 mg/dL (0.6-1.3); GLUCOSE 113 mg/dL (74-106); POTASSIUM 3.2 mmol/L (3.5-5.1); SODIUM SERUM 138 mmol/L (136-145); UREA NITROGEN, BLOOD 15 mg/dL (7-18)
[2021-08-01 17:30] LABS: BACTERIA,URINE None seen /HPF (None Seen); RBC,URINE 0-2 /HPF (0-2); WBC,URINE 0-2 /HPF (0-3)
[2021-08-01 17:31] LABS: MUCUS,URINE Few /LPF (None Seen); SQUAMOUS EPITHELIAL CELL,UR Few /HPF (None Seen); URINE AMORPHOUS URATE Few /HPF (None Seen)
[2021-08-01 17:33] LABS: ALANINE AMINOTRANSFERASE 40 U/L (12-78); ALCOHOL, BLOOD 293 mg/dL (0-0); ALKALINE PHOSPHATASE 79 U/L (46-116); ASPARTATE AMINOTRANSFERASE 41 U/L (15-37); BILIRUBIN,DIRECT 0.1 mg/dL (0.0-0.2); BILIRUBIN,TOTAL 0.3 mg/dL (0.2-1.0)
[2021-08-01 17:34] LABS: ACETAMINOPHEN < 0 ug/ml (10-30)
[2021-08-01] MEDS ORDERED: POTASSIUM CHLORIDE 20 MEQ TAB.PRT.SR PO ONE ×2 (18:00→18:10)
--- NOTE | 2021-08-02 02:50 | NUR ---
lab at bedside for repeat blood draw.
--- NOTE | 2021-08-02 05:00 | NUR ---
PATIENT RESTING IN EASY TO AROUSE. PATIENT VSS. PATIENT IN NO ACUTE DISTRESS. WILL CONTINUE TO MONITOR.
--- NOTE | 2021-08-02 13:58 | NUR ---
SS Consult : SS Consult requested for SI & Homelessness. The pt. is a 56- year old Black male who presents to ED with C/O suicidal ideations with "OD on medication". The pt. appears unkempt is A&O X4 and makes poor eye contact. Pt.'s mood is depressed with flat affect. Pt. states he came to the hospital because he has been having AH telling him to hurt himself for the past 2 days. Pt. denies visual hallucinations and denies HI. DARIUS offered pt. voluntary admission to a psych facility for treatment and pt. is agreeable. DARIUS explored pt.'s mental health Hx. Pt. states he has been diagnosed with Paranoid Schizophrenia in the past and states he is med compliant. DARIUS explored pt.'s living situation. Pt. states he has been homeless for a "1 month". SW explored pt.'s drug & ETOH use. Patient stated he uses Marijuana every other day. SW provided addiction resources and pt. accepted. Pt. states he is ambulatory. DARIUS explored pt.'s support system. Pt. states he has no family or friends. Pt. states he receives SSI. Plan: DARIUS referred pt[facility] to [facility] [place] [address] FAX:[phone]] for inpatient psychiatric treatment. Pt. refused to signed homeless waiver and it was placed in the chart. DARIUS provided pt. with homeless, and mental health resources and he refused them : Year-round shelters: [place] [address] [place], [place] [address] ; [facility] [place] [address] [place] [address]; [facility] Ybujtbu3886 [facility] [address] Winter Shelters: Baldev Chun Provider: [facility] [place] Address: [address] [place], [address] # of Beds: 47 Population Served: [facility] 6 | [facility] [place] Provider: Home at Last Address: [address] [facility], [address] # of Beds: 66 Population Served: Stas Clark [place] Provider: First to Serve Address: [address] [facility], [address] # of Beds: 56 Population Served: Stas Gavin [place] Provider: SSG/Ms. Kelsey[facility] House Address: [address] [facility], [address] # of Beds: 49 Population Served: [facility] SPA 8 | [place] Provider: First to Serve Address: [address] [facility], [address] # of Beds: 37 Population Served: [facility] Hygiene: [facility]: [address] [facility] [facility] ; [place] [facility] [address] [facility] ; [facility] 9028 [facility] [place] . Food Resources: [place] Food Pant[facility] at [facility]- 57[address] [facility]; Meet Each Need with Dignity ([facility]) [address] [facility] Center[facility] Frontier; [facility] Food Pantry 4343 [facility]; [facility] 8516 [facility] [place]. Mental Health resources provided: [facility] [address] [place], [place] [phone] ; [facility] [address] [facility] [address], [place], [place] [address] ; Reina Hamilton [facility] [address] [place] [address] ; [facility] [address] [place], [place] [phone] Healthcare Clinics: [facility] 6551 [facility], [address] [place]. [place] ; [facility] [address] [facility] [address] [place] [address]; [facility] [place] [address] [facility] 181057 [phone] Counseling--Outpatient [facility] [address] [place], [place] [address] (Specializes in in-depth psychotherapy for emotional distress: anxiety, depression, interpersonal conflicts, life transitions, childhood abuse) [facility] [address] [place], [place] [address] (Assist with solving problem marital difficulties, separation & divorce, aging parents, & grief, chronic & terminal illness) [facility] [address] [place] [address] (Deal with loss & grief, anxiety, marital difficulties) Homebound/Mental Health Services [address] [facility] [address] [place] [address] (Provide in-home mental services to people who are incapable of leaving their homes) Organization for Needs of the Elderly Senior Service/Resource Center [address] [place] [address] [facility] [address]14 My[address] RobertdinoraFort [place], [place] [address] PSYCHIATRIC OUTPATIENT SERVICES [facility] Partial Hospitalization and Intensive Outpatient Program (Managed Care and [place] Only)[address]82 [facility] [phone] [facility] Partial Hospitalization and Outpatient Gruhksc02818 [facility] [address] [place], [place] [phone] [facility] Health Center Yal51216 [facility] [address] [place], [place] [phone] [facility] Partial Hospitalization and Outpatient Zbzcxkc51326 Viri Cha [place], [phone] Substance Abuse resources provided included: [facility] Substance Abuse Self-Helpline (SASH) ; CRI -HELP [address] [facility]. [place] [address] ; [facility] [place] [address] [facility] [address] ; [facility] Rehabilitation Program [address] [place] [address] ; [facility] [address]. [facility] [id number] ; [facility] 49[address] Winkler [facility] [address] ; [facility] 909 [facility] Medical Centervd. [facility] [id number] ; [facility] Substance Abuse Helpline(SAS)[facility] ; [facility] ; [facility] [place]; [facility]; Cri-Help [place]; I-ADARP Inter [facility] Drug Abuse Recovery Winston [facility]; [facility] [place]; [facility] [place]; [facility] M[place]; [facility]'s [place], Inc. [place]; Alcoholics Anonymous -SFV; Kx-Pjsx-Adbnpfb ; Marijuana Anonymous -SFV; Narcotics Anonymous www.na.org;
--- NOTE | 2021-08-02 21:00 | NUR ---
PATIENT A/O X 4, RR EVEN AND UNLABORED, NO SOB NOTED. PATIENT VSS. WILL CONTINUE TO MONITOR.
--- NOTE | 2021-08-02 22:13 | NUR ---
FACESHEET AND CLINICALS FAXED TO [facility].
--- NOTE | 2021-08-02 23:24 | NUR ---
PT ACCEPTED TO [facility] BY DR HARVEY. # FOR REPORT [phone].
--- NOTE | 2021-08-02 23:31 | NUR ---
[facility] CALLED FOR TRANSPORTATION. TRIP# [id number].
--- NOTE | 2021-08-02 23:53 | NUR ---
DINESH FROM [facility] TRANSPORT[facility]: SUSAN ALBARADO BETWEEN 6 AND 7 AM
--- NOTE | 2021-08-03 03:51 | NUR ---
REPORT GIVEN TO REINALDO MIGUEL FOR CONTINUATION OF CARE.
[2021-08-03 03:53] VITALS: BP 154/84
--- NOTE | 2021-08-03 03:53 | NUR ---
REPORT GIVEN TO EMS AT BEDSIDE. PATIENT VSS, NO ACUTE DISTRESS NOTED.
== END 2021-08-03 03:54 ==
LOC: ER 15:33
DX: R45.851 Suicidal ideations (principal); F10.129 Alcohol abuse with intoxication, unspecified; Y90.8 Blood alcohol level of 240 mg/100 ml or more; F19.10 Other psychoactive substance abuse, uncomplicated; E87.6 Hypokalemia; D64.9 Anemia, unspecified; F20.0 Paranoid schizophrenia; F32.9 Major depressive disorder, single episode, unspecified; I10 Essential (primary) hypertension; Z91.013 Allergy to seafood; G40.909 Epilepsy, unspecified, not intractable, without status epilepticus; Z20.822 Contact with and (suspected) exposure to COVID-19
CPT/HCPCS: 36415; 80048; 80076; 80143; 80307; 80320 ×4; 81001; 85025; 87426; 99285; C9803; G0480

== ENCOUNTER 2021-08-31 17:34 | Emergency (ER) | payer MEDICAID ==
[~2021-08-31] VITALS: Ht 165.1 cm; Wt 9.5 kg
[2021-08-31 18:03] VITALS: BP 116/68
--- NOTE | 2021-08-31 18:03 | NUR ---
pt ambulatory w/ steady gait, c/o depression w/ suicidal ideation w/ plan to run into traffic or overdose on his pills. pt denies si. denies any recent drug use but admits to drinking some beers. stable vitals noted. awaiting md bustamante.
--- NOTE | 2021-08-31 18:06 | NUR ---
dr fry at bedside for eval.
[2021-08-31 18:52] LABS: BASOPHILS # (AUTO) 0.1 K/uL (0.0-0.2); BASOPHILS % (AUTO) 0.9 % (0.0-2.0); EOSINOPHILS % (AUTO) 0.7 % (0.0-6.0); HEMATOCRIT 38 % (39-51); HEMOGLOBIN 12.2 g/dL (13.5-17.5); LYMPHOCYTES # (AUTO) 2.4 K/uL (0.8-4.8); LYMPHOCYTES % (AUTO) 40.7 % (20.0-44.0); MEAN CORPUSCULAR HGB CONC 33 g/dl (31.0-36.0); MEAN CORPUSCULAR VOLUME 84 fL (80-96); MONOCYTES # (AUTO) 0.5 K/uL (0.1-1.30); MONOCYTES % (AUTO) 8.1 % (2.0-12.0); NEUTROPHILS # (AUTO) 2.9 K/uL (1.8-8.9); NEUTROPHILS % (AUTO) 49.6 % (43.0-81.0); PLATELET COUNT (AUTO) 277 K/uL (150-450); RED BLOOD CELL COUNT(AUTO) 4.44 MIL/uL (4.5-6.0); WHITE BLOOD COUNT (AUTO) 5.8 K/uL (4.3-11.0)
[2021-08-31 19:02] LABS: CALCIUM, SERUM 9.4 mg/dL (8.5-10.1); CARBON DIOXIDE 28 mmol/L (21-32); CHLORIDE 102 mmol/L (98-107); CREATININE 1.3 mg/dL (0.6-1.3); GLUCOSE 99 mg/dL (74-106); POTASSIUM 3.3 mmol/L (3.5-5.1); SODIUM SERUM 140 mmol/L (136-145); UREA NITROGEN, BLOOD 14 mg/dL (7-18)
[2021-08-31 19:07] LABS: ALANINE AMINOTRANSFERASE 37 U/L (12-78); ALBUMIN 3.8 g/dL (3.4-5.0); ALCOHOL, BLOOD 181 mg/dL (0-0); ALKALINE PHOSPHATASE 68 U/L (46-116); ASPARTATE AMINOTRANSFERASE 30 U/L (15-37); BILIRUBIN,DIRECT 0.1 mg/dL (0.0-0.2); BILIRUBIN,TOTAL 0.2 mg/dL (0.2-1.0); TOTAL PROTEIN, SERUM 8.4 g/dL (6.4-8.2)
[2021-08-31 19:07] LABS: BILIRUBIN,URINE Negative (NEGATIVE); COLOR,URINE YELLOW (YELLOW); LEUKOCYTE ESTERASE ,URINE Negative (NEGATIVE); NITRITE, URINE Negative (NEGATIVE); PH,URINE 6.5 (5.0-8.0); PROTEIN,URINE Negative (NEGATIVE); UGLUCOSE Negative (NEGATIVE); UROBILINOGEN,URINE 0.2 EU/dL (0.2)
[2021-08-31 19:08] LABS: ACETAMINOPHEN < 0 ug/ml (10-30)
--- NOTE | 2021-08-31 20:03 | NUR ---
FACESHEET AND CLINICALS FAXED TO [facility].
[2021-08-31] MEDS ORDERED: POTASSIUM CHLORIDE 20 MEQ TAB.PRT.SR PO ONE (20:30)
--- NOTE | 2021-09-01 01:33 | NUR ---
ACCEPTED TO [facility] HEIN NUMBER FOR REPORT [phone]
--- NOTE | 2021-09-01 01:36 | NUR ---
PT ACCEPTED TO [facility] BY DR DAILY. # FOR REPORT [phone]
--- NOTE | 2021-09-01 01:39 | NUR ---
[facility] ETA [phone]
--- NOTE | 2021-09-01 01:41 | NUR ---
REPORT GIVEN TO LAMONT NAJERA
--- NOTE | 2021-09-01 02:48 | NUR ---
PT WAS PICKED UP BY [facility] VIA GURNEY IN STABLE CONDITION AND TRANSFERRED TO [facility]. ALL BELONGINGS WERE PICKED UP
== END 2021-09-01 03:18 ==
LOC: ER 18:19
DX: R45.851 Suicidal ideations (principal); F23 Brief psychotic disorder; E87.6 Hypokalemia; D64.9 Anemia, unspecified; F10.129 Alcohol abuse with intoxication, unspecified; Y90.6 Blood alcohol level of 120-199 mg/100 ml; F20.0 Paranoid schizophrenia; Z91.013 Allergy to seafood; I10 Essential (primary) hypertension; G40.909 Epilepsy, unspecified, not intractable, without status epilepticus; Z79.899 Other long term (current) drug therapy; Z20.822 Contact with and (suspected) exposure to COVID-19; F32.9 Major depressive disorder, single episode, unspecified
CPT/HCPCS: 36415; 80048; 80076; 80143; 80307; 80320; 81003; 85025; 87426; 99285; C9803; G0480

== ENCOUNTER 2021-11-21 15:25 | Emergency (ER) | payer MEDICAID ==
[~2021-11-21] VITALS: Ht 170.2 cm; Wt 95.3 kg
--- NOTE | 2021-11-21 15:42 | NUR ---
BIBS C/O SI WITH PLAN TO RUN THROUGH TRAFFIC. WANT VOL ADMISSION TO [facility]. DENIES HI. DENIES HAVING HALLUCINATIONS. RESPIRATION REGULAR AND UNLABORED. WILL CONTINUE TO MONITOR THE PATIENT.
--- NOTE | 2021-11-21 15:48 | NUR ---
URINE COLLECTED AND SENT TO THE LAB
[2021-11-21 16:16] LABS: BILIRUBIN,URINE LARGE (NEGATIVE); COLOR,URINE YELLOW (YELLOW); LEUKOCYTE ESTERASE ,URINE NEGATIVE (NEGATIVE); NITRITE, URINE NEGATIVE (NEGATIVE); PH,URINE 6.5 (5.0-8.0); PROTEIN,URINE 100 mg/dl (NEGATIVE); UGLUCOSE NEGATIVE (NEGATIVE)
--- NOTE | 2021-11-21 16:17 | NUR ---
COVID SWAB DONE AND SENT TO LAB
[2021-11-21 16:30] LABS: BASOPHILS % (AUTO) 0.5 % (0.0-2.0); HEMATOCRIT 41 % (39-51); HEMOGLOBIN 13.8 g/dL (13.5-17.5); LYMPHOCYTES # (AUTO) 1.6 K/uL (0.8-4.8); LYMPHOCYTES % (AUTO) 23.6 % (20.0-44.0); MEAN CORPUSCULAR HGB CONC 34 g/dl (31.0-36.0); MEAN CORPUSCULAR VOLUME 87 fL (80-96); MONOCYTES # (AUTO) 1.1 K/uL (0.1-1.30); MONOCYTES % (AUTO) 16.4 % (2.0-12.0); NEUTROPHILS % (AUTO) 58.5 % (43.0-81.0); PLATELET COUNT (AUTO) 91 K/uL (150-450); RED BLOOD CELL COUNT(AUTO) 4.75 MIL/uL (4.5-6.0); WHITE BLOOD COUNT (AUTO) 6.9 K/uL (4.3-11.0)
[2021-11-21 16:34] LABS: CALCIUM, SERUM 9.6 mg/dL (8.5-10.1); CARBON DIOXIDE 20 mmol/L (21-32); CHLORIDE 90 mmol/L (98-107); CREATININE 1.8 mg/dL (0.6-1.3); GLUCOSE 128 mg/dL (74-106); POTASSIUM 3.4 mmol/L (3.5-5.1); SODIUM SERUM 129 mmol/L (136-145); UREA NITROGEN, BLOOD 19 mg/dL (7-18)
[2021-11-21 16:34] LABS: BACTERIA,URINE Few /HPF (None Seen); SQUAMOUS EPITHELIAL CELL,UR Moderate /HPF (None Seen); WBC,URINE 0-3 /HPF (0-3)
[2021-11-21 16:42] LABS: ALANINE AMINOTRANSFERASE 100 U/L (12-78); ALCOHOL, BLOOD < 3 mg/dL (0-0); ALKALINE PHOSPHATASE 99 U/L (46-116); ASPARTATE AMINOTRANSFERASE 87 U/L (15-37); BILIRUBIN,DIRECT 0.2 mg/dL (0.0-0.2); BILIRUBIN,TOTAL 0.8 mg/dL (0.2-1.0); TOTAL PROTEIN, SERUM 9.5 g/dL (6.4-8.2)
[2021-11-21 16:49] LABS: ACETAMINOPHEN < 2 ug/ml (10-30)
[2021-11-21 18:39] LABS: EOSINOPHILS % (MANUAL) 1 % (0-4); LYMPHOCYTES % (MANUAL) 31 % (16-48); MONOCYTES % (MANUAL) 17 % (0-11.0); NEUTROPHILS % (MANUAL) 51 (42-76)
--- NOTE | 2021-11-21 18:52 | NUR ---
FAXED CLINICALS TO [facility]
--- NOTE | 2021-11-22 01:00 | NUR ---
[facility] 15-20 MINUTES.
--- NOTE | 2021-11-22 01:05 | NUR ---
ART FROM [facility] CALLED, HE IS ACCEPTED UNDER . REPORT NEEDS TO BE CALLED IN TO [phone] TO GET THE BED.
--- NOTE | 2021-11-22 01:09 | NUR ---
REPORT GIVEN TO LAMONT NAJERA
--- NOTE | 2021-11-22 01:12 | NUR ---
PATIENT BEING TRANSFERRED TO [facility]IA AMBULANCE IN STABLE CONDITION.
[2021-11-22 01:14] VITALS: BP 128/77
== END 2021-11-22 01:15 ==
LOC: ER 15:27
DX: R45.851 Suicidal ideations (principal); F20.0 Paranoid schizophrenia; I10 Essential (primary) hypertension; F32.A Depression, unspecified; Z79.899 Other long term (current) drug therapy; F19.10 Other psychoactive substance abuse, uncomplicated; G40.909 Epilepsy, unspecified, not intractable, without status epilepticus; Z20.822 Contact with and (suspected) exposure to COVID-19
CPT/HCPCS: 36415; 80048; 80076; 80143; 80307; 80320; 81001; 85007; 85025; 87426; 99285; C9803; G0480

== ENCOUNTER 2022-08-04 14:16 | Emergency (ER) | payer OTHER ==
[~2022-08-04] VITALS: Ht 170.2 cm; Wt 95.7 kg
--- NOTE | 2022-08-04 14:42 | NUR ---
URINE COLLECTED AND COVID SWAB DONE AND SENT TO LAB
[2022-08-04 15:04] LABS: BILIRUBIN,URINE SMALL (NEGATIVE); COLOR,URINE YELLOW (YELLOW); LEUKOCYTE ESTERASE ,URINE NEGATIVE (NEGATIVE); NITRITE, URINE NEGATIVE (NEGATIVE); PH,URINE 5.5 (5.0-8.0); PROTEIN,URINE 30 mg/dl (NEGATIVE); UGLUCOSE NEGATIVE (NEGATIVE); UROBILINOGEN,URINE 0.2 EU/dL (0.2)
[2022-08-04 15:31] LABS: BACTERIA,URINE RARE /HPF (None Seen); WBC,URINE 0-2 /HPF (0-3)
[2022-08-04 15:32] LABS: HYALINE CASTS, URINE Few /LPF (None Seen); MUCUS,URINE Moderate /LPF (None Seen)
[2022-08-04 15:54] LABS: BASOPHILS % (AUTO) 0.8 % (0.0-2.0); EOSINOPHILS % (AUTO) 0.2 % (0.0-6.0); HEMATOCRIT 35 % (39-51); HEMOGLOBIN 11.6 g/dL (13.5-17.5); LYMPHOCYTES # (AUTO) 1.9 K/uL (0.8-4.8); LYMPHOCYTES % (AUTO) 51.1 % (20.0-44.0); MEAN CORPUSCULAR HGB CONC 34 g/dl (31.0-36.0); MEAN CORPUSCULAR VOLUME 96 fL (80-96); MONOCYTES # (AUTO) 0.3 K/uL (0.1-1.30); MONOCYTES % (AUTO) 6.9 % (2.0-12.0); NEUTROPHILS # (AUTO) 1.5 K/uL (1.8-8.9); PLATELET COUNT (AUTO) 243 K/uL (150-450); RED BLOOD CELL COUNT(AUTO) 3.62 MIL/uL (4.5-6.0); WHITE BLOOD COUNT (AUTO) 3.7 K/uL (4.3-11.0)
[2022-08-04 16:22] LABS: ALANINE AMINOTRANSFERASE 46 U/L (12-78); ALBUMIN 3.8 g/dL (3.4-5.0); ALCOHOL, BLOOD 414 mg/dL (0-0); ALKALINE PHOSPHATASE 86 U/L (46-116); ASPARTATE AMINOTRANSFERASE 83 U/L (15-37); BILIRUBIN,DIRECT 0.2 mg/dL (0.0-0.2); BILIRUBIN,TOTAL 0.5 mg/dL (0.2-1.0); CALCIUM, SERUM 8.9 mg/dL (8.5-10.1); CARBON DIOXIDE 28 mmol/L (21-32); CHLORIDE 105 mmol/L (98-107); CREATININE 1.2 mg/dL (0.6-1.3); GLUCOSE 86 mg/dL (74-106); POTASSIUM 3.3 mmol/L (3.5-5.1); SODIUM SERUM 147 mmol/L (136-145); TOTAL PROTEIN, SERUM 7.9 g/dL (6.4-8.2); UREA NITROGEN, BLOOD 14 mg/dL (7-18)
[2022-08-04 16:24] LABS: ACETAMINOPHEN < 10 ug/ml (10-30)
[2022-08-05] MEDS ORDERED: LORAZEPAM 0.5 MG TABLET ONE (00:33)
[2022-08-05] MEDS: LORAZEPAM 1 MG TABLET PO ONE (00:35)
--- NOTE | 2022-08-05 06:20 | NUR ---
FACESHEET AND CLINICALS FAXED TO [facility].
--- NOTE | 2022-08-05 06:45 | NUR ---
David olivares in [facility] - 08/05/22 at 0717 by MITA FACESHEET AND CLINICALS FAXED TO [facility].
[2022-08-05] MEDS ORDERED: ACETAMINOPHEN 325 MG TABLET ONE (07:00)
[2022-08-05] MEDS: ACETAMINOPHEN 325 MG TABLET PO ONE (07:02)
[2022-08-05 08:04] VITALS: BP 110/75
--- NOTE | 2022-08-05 08:23 | NUR ---
Dr. Berry number for report [phone] unit 1 after 11am.
== END 2022-08-05 12:40 ==
LOC: ER 14:20
DX: F23 Brief psychotic disorder (principal); F32.A Depression, unspecified; F25.9 Schizoaffective disorder, unspecified; F19.90 Other psychoactive substance use, unspecified, uncomplicated; I10 Essential (primary) hypertension; Z91.013 Allergy to seafood; F17.200 Nicotine dependence, unspecified, uncomplicated; F10.129 Alcohol abuse with intoxication, unspecified; Y90.8 Blood alcohol level of 240 mg/100 ml or more; Z20.822 Contact with and (suspected) exposure to COVID-19; Z79.899 Other long term (current) drug therapy
CPT/HCPCS: 99285; 85025; 80048; 80076; 81001; 36415 ×2; 87426; 80143; 80320 ×3; 80307; C9803; G0480

== ENCOUNTER 2022-08-17 15:56 | Emergency (ER) | payer MEDICAID, OTHER ==
[~2022-08-17] VITALS: Ht 170.2 cm; Wt 96.2 kg
[2022-08-17 16:45] VITALS: BP 110/76
--- NOTE | 2022-08-17 17:49 | NUR ---
URINE SAMPLE COLLECTED AND SENT TO LAB
--- NOTE | 2022-08-17 17:58 | NUR ---
COVID SWAB DONE AND SENT TO LAB
--- NOTE | 2022-08-17 18:07 | NUR ---
RN ADMISSIONS AT BEDSIDE FOR BLOOD DRAW
[2022-08-17 18:24] LABS: BASOPHILS % (AUTO) 0.3 % (0.0-2.0); EOSINOPHILS % (AUTO) 0.6 % (0.0-6.0); HEMATOCRIT 35 % (39-51); HEMOGLOBIN 11.5 g/dL (13.5-17.5); LYMPHOCYTES # (AUTO) 2.2 K/uL (0.8-4.8); LYMPHOCYTES % (AUTO) 41.2 % (20.0-44.0); MEAN CORPUSCULAR HGB CONC 33 g/dl (31.0-36.0); MEAN CORPUSCULAR VOLUME 96 fL (80-96); MONOCYTES # (AUTO) 0.4 K/uL (0.1-1.30); NEUTROPHILS # (AUTO) 2.7 K/uL (1.8-8.9); NEUTROPHILS % (AUTO) 50.9 % (43.0-81.0); PLATELET COUNT (AUTO) 296 K/uL (150-450); RED BLOOD CELL COUNT(AUTO) 3.61 MIL/uL (4.5-6.0); WHITE BLOOD COUNT (AUTO) 5.2 K/uL (4.3-11.0)
[2022-08-17 18:38] LABS: CALCIUM, SERUM 9.4 mg/dL (8.5-10.1); CREATININE 1.1 mg/dL (0.6-1.3); POTASSIUM 3.5 mmol/L (3.5-5.1)
[2022-08-17 18:42] LABS: ALBUMIN 3.8 g/dL (3.4-5.0); BILIRUBIN,DIRECT 0.1 mg/dL (0.0-0.2); BILIRUBIN,TOTAL 0.4 mg/dL (0.2-1.0); TOTAL PROTEIN, SERUM 8.3 g/dL (6.4-8.2)
[2022-08-17 19:23] LABS: BILIRUBIN,URINE NEGATIVE (NEGATIVE); COLOR,URINE YELLOW (YELLOW); LEUKOCYTE ESTERASE ,URINE NEGATIVE (NEGATIVE); NITRITE, URINE NEGATIVE (NEGATIVE); PH,URINE 6.5 (5.0-8.0); PROTEIN,URINE NEGATIVE (NEGATIVE); UGLUCOSE NEGATIVE (NEGATIVE); UROBILINOGEN,URINE 0.2 EU/dL (0.2)
--- NOTE | 2022-08-18 00:12 | NUR ---
FACESHEET AND CLINICALS FAXED TO [facility].
--- NOTE | 2022-08-18 02:02 | NUR ---
ACCCEPTED AT [facility] UNDER DR HARVEY # FOR REPORT [phone] UNIT 1
--- NOTE | 2022-08-18 02:04 | NUR ---
[facility] CALLED FOR BLS TO [facility] PER RADHA - ETA 45 MIN
--- NOTE | 2022-08-18 03:10 | NUR ---
REPORT GIVEN TO SASHA
--- NOTE | 2022-08-18 04:52 | NUR ---
[facility] FOR [facility] TO [facility]. REPORT GIVEN. PT IS IN STABLE CONDITION. BELONGINGS GIVEN.
== END 2022-08-18 04:55 ==
LOC: ER 16:03
DX: R45.851 Suicidal ideations (principal); F20.0 Paranoid schizophrenia; I10 Essential (primary) hypertension; Z91.013 Allergy to seafood; Z20.822 Contact with and (suspected) exposure to COVID-19; Z79.899 Other long term (current) drug therapy; Z72.89 Other problems related to lifestyle
CPT/HCPCS: 99285; 85025; 80048; 80076; 81003; 36415; 87426; 80143; 80320 ×2; 80307; C9803; G0480

== ENCOUNTER 2022-09-13 16:27 | Emergency (ER) | payer MEDICAID ==
[~2022-09-13] VITALS: Ht 170.2 cm; Wt 95.7 kg
[2022-09-13 18:03] LABS: BASOPHILS # (AUTO) 0.1 K/uL (0.0-0.2); BASOPHILS % (AUTO) 1.2 % (0.0-2.0); EOSINOPHILS % (AUTO) 0.6 % (0.0-6.0); HEMATOCRIT 40 % (39-51); HEMOGLOBIN 12.9 g/dL (13.5-17.5); MEAN CORPUSCULAR HGB CONC 32 g/dl (31.0-36.0); MEAN CORPUSCULAR VOLUME 95 fL (80-96); MONOCYTES # (AUTO) 0.2 K/uL (0.1-1.30); MONOCYTES % (AUTO) 3.9 % (2.0-12.0); NEUTROPHILS # (AUTO) 2.8 K/uL (1.8-8.9); NEUTROPHILS % (AUTO) 54.3 % (43.0-81.0); PLATELET COUNT (AUTO) 272 K/uL (150-450); RED BLOOD CELL COUNT(AUTO) 4.19 MIL/uL (4.5-6.0); WHITE BLOOD COUNT (AUTO) 5.1 K/uL (4.3-11.0)
[2022-09-13 18:30] LABS: ALBUMIN 3.8 g/dL (3.4-5.0); BILIRUBIN,DIRECT 0.1 mg/dL (0.0-0.2); BILIRUBIN,TOTAL 0.5 mg/dL (0.2-1.0); POTASSIUM 3.5 mmol/L (3.5-5.1); TOTAL PROTEIN, SERUM 8.4 g/dL (6.4-8.2)
[2022-09-13 20:16] LABS: BILIRUBIN,URINE NEGATIVE (NEGATIVE); COLOR,URINE YELLOW (YELLOW); LEUKOCYTE ESTERASE ,URINE NEGATIVE (NEGATIVE); NITRITE, URINE NEGATIVE (NEGATIVE); PH,URINE 6.5 (5.0-8.0); PROTEIN,URINE NEGATIVE (NEGATIVE); UGLUCOSE NEGATIVE (NEGATIVE); UROBILINOGEN,URINE 0.2 EU/dL (0.2)
[2022-09-13 20:35] LABS: BACTERIA,URINE Few /HPF (None Seen); RBC,URINE 0-2 /HPF (0-2); SQUAMOUS EPITHELIAL CELL,UR Few /HPF (None Seen); WBC,URINE 0-2 /HPF (0-3)
--- NOTE | 2022-09-13 20:37 | NUR ---
FACESHEET AND CLINICALS FAXED TO [facility].
--- NOTE | 2022-09-13 21:13 | NUR ---
C/O FEELING SUICIDAL REQUESTING VOLUNTARY ADMISSION TO PSYCH PLAN TO RUN INTO TRAFFIC. PT AWAKE AND ALERT, CHANGED INTO GOWN AND BELONGINGS TAKEN FROM PERSON. WANDED BY SECURITY. SAFETY MEASURES IN PLACE.
--- NOTE | 2022-09-14 01:09 | NUR ---
[facility] GREG[facility], ALCOHOL LEVEL OF 148 IS TOO HIGH, CANNOT ACCEPT
--- NOTE | 2022-09-14 06:14 | NUR ---
REPEAT ALCOHOL LEVEL FAXED TO [facility]
--- NOTE | 2022-09-14 06:34 | NUR ---
accepted at [facility] under dr samano give report after 10am [phone] transport will be set up by anusha montgomery
[2022-09-14 10:40] VITALS: BP 137/83
--- NOTE | 2022-09-14 11:00 | NUR ---
PICKED UP BY [facility] BRAKE DRUM MOLDER IN STABLE CONDITION
== END 2022-09-14 13:55 ==
LOC: ER 16:31
DX: R45.851 Suicidal ideations (principal); F20.0 Paranoid schizophrenia; I10 Essential (primary) hypertension; Z20.822 Contact with and (suspected) exposure to COVID-19; Z91.013 Allergy to seafood; Z79.899 Other long term (current) drug therapy; G40.909 Epilepsy, unspecified, not intractable, without status epilepticus
CPT/HCPCS: 99285; 85025; 80048; 80076; 81001; 36415 ×2; 87426; 80143; 80320 ×3; 80307; C9803; G0480

== ENCOUNTER 2022-11-07 18:23 | Emergency (ER) | payer MEDICAID ==
[~2022-11-07] VITALS: Ht 167.6 cm; Wt 97.5 kg
--- NOTE | 2022-11-07 18:39 | NUR ---
TO ER 18,CONTRABAND REMOVED,SECURITY CALLED FOR WANDING, AWAITING MD BARTLETT
[2022-11-07 19:24] LABS: CALCIUM, SERUM 9.5 mg/dL (8.5-10.1); CREATININE 1.2 mg/dL (0.6-1.3); POTASSIUM 3.6 mmol/L (3.5-5.1)
--- NOTE | 2022-11-07 19:25 | NUR ---
COVID ANTIGEN SWAB COLLECTED AND SENT TO LAB
[2022-11-07 19:28] LABS: BILIRUBIN,URINE NEGATIVE (NEGATIVE); COLOR,URINE YELLOW (YELLOW); LEUKOCYTE ESTERASE ,URINE NEGATIVE (NEGATIVE); NITRITE, URINE NEGATIVE (NEGATIVE); PH,URINE 5.5 (5.0-8.0); PROTEIN,URINE NEGATIVE (NEGATIVE); UGLUCOSE NEGATIVE (NEGATIVE); UROBILINOGEN,URINE 0.2 EU/dL (0.2)
[2022-11-07 19:30] LABS: BILIRUBIN,DIRECT 0.1 mg/dL (0.0-0.2); BILIRUBIN,TOTAL 0.4 mg/dL (0.2-1.0); TOTAL PROTEIN, SERUM 8.4 g/dL (6.4-8.2)
[2022-11-07 19:55] LABS: BASOPHILS % (AUTO) 1.1 % (0.0-2.0); EOSINOPHILS % (AUTO) 0.6 % (0.0-6.0); HEMATOCRIT 44 % (39-51); HEMOGLOBIN 14.3 g/dL (13.5-17.5); LYMPHOCYTES # (AUTO) 2.5 K/uL (0.8-4.8); LYMPHOCYTES % (AUTO) 57.5 % (20.0-44.0); MEAN CORPUSCULAR HGB CONC 32 g/dl (31.0-36.0); MEAN CORPUSCULAR VOLUME 89 fL (80-96); MONOCYTES # (AUTO) 0.2 K/uL (0.1-1.30); NEUTROPHILS # (AUTO) 1.6 K/uL (1.8-8.9); NEUTROPHILS % (AUTO) 36.8 % (43.0-81.0); PLATELET COUNT (AUTO) 324 K/uL (150-450); RED BLOOD CELL COUNT(AUTO) 4.94 MIL/uL (4.5-6.0); WHITE BLOOD COUNT (AUTO) 4.4 K/uL (4.3-11.0)
[2022-11-07] MEDS ORDERED: CHLORDIAZEPOXIDE HCL 25 MG CAPSULE PO ONE ×2 (20:00)
[2022-11-07] MEDS ORDERED: HYDROCHLOROTHIAZIDE 25 MG TABLET PO ONE (20:00)
[2022-11-07] MEDS ORDERED: CHLORDIAZEPOXIDE HCL 25 MG CAPSULE ONE (20:48)
[2022-11-07] MEDS ORDERED: HYDROCHLOROTHIAZIDE 25 MG TABLET ONE (20:48)
--- NOTE | 2022-11-08 04:03 | NUR ---
EXECUTIVE CYBER LEADER AT PT'S BEDSIDE
--- NOTE | 2022-11-08 05:02 | NUR ---
FACESHEET AND CLINICALS FAXED TO [facility].
--- NOTE | 2022-11-08 06:58 | NUR ---
PER KARLEE OF [facility], PT'S ALCOHOL LEVEL SHOULD BE BELOW 100 FIRST
--- NOTE | 2022-11-08 10:00 | NUR ---
LAB AT BEDSIDE FOR SERUM ALCOHOL
--- NOTE | 2022-11-08 11:30 | NUR ---
PER DARION, SEND PATIENT AFTER 12NOON
--- NOTE | 2022-11-08 11:52 | NUR ---
[facility] CALLED FOR TRANSPORT, ETA 90 MIN PER MEGHANN
[2022-11-08 12:45] VITALS: BP 136/92
--- NOTE | 2022-11-08 13:11 | NUR ---
PICKED UP BY TRANSPORT IN STABLE CONDITION
== END 2022-11-08 13:31 ==
LOC: ER 18:31
DX: R45.851 Suicidal ideations (principal); F10.129 Alcohol abuse with intoxication, unspecified; Y90.6 Blood alcohol level of 120-199 mg/100 ml; F12.90 Cannabis use, unspecified, uncomplicated; F20.0 Paranoid schizophrenia; I10 Essential (primary) hypertension; Z79.899 Other long term (current) drug therapy; F32.A Depression, unspecified; Z91.013 Allergy to seafood; Z91.018 Allergy to other foods; R56.9 Unspecified convulsions; Z72.0 Tobacco use; Z20.822 Contact with and (suspected) exposure to COVID-19
CPT/HCPCS: 99285; 85025; 80048; 80076; 81003; 36415 ×2; 87426; 80143; 80320 ×4; 80307; C9803; A4649; G0480

== ENCOUNTER 2022-12-10 17:03 | Emergency (ER) | payer MEDICAID ==
[~2022-12-10] VITALS: Ht 167.6 cm; Wt 97.5 kg
[2022-12-10 17:37] LABS: BASOPHILS # (AUTO) 0.1 K/uL (0.0-0.2); BASOPHILS % (AUTO) 1.1 % (0.0-2.0); EOSINOPHILS % (AUTO) 0.5 % (0.0-6.0); HEMATOCRIT 42 % (39-51); HEMOGLOBIN 13.9 g/dL (13.5-17.5); LYMPHOCYTES % (AUTO) 40.7 % (20.0-44.0); MEAN CORPUSCULAR HGB CONC 33 g/dl (31.0-36.0); MEAN CORPUSCULAR VOLUME 87 fL (80-96); MONOCYTES # (AUTO) 0.3 K/uL (0.1-1.30); NEUTROPHILS # (AUTO) 2.6 K/uL (1.8-8.9); NEUTROPHILS % (AUTO) 51.7 % (43.0-81.0); PLATELET COUNT (AUTO) 265 K/uL (150-450); RED BLOOD CELL COUNT(AUTO) 4.84 MIL/uL (4.5-6.0)
[2022-12-10 17:57] LABS: ALANINE AMINOTRANSFERASE 18 U/L (12-78); ALBUMIN 3.9 g/dL (3.4-5.0); ALCOHOL, BLOOD 111 mg/dL (0-0); ALKALINE PHOSPHATASE 74 U/L (46-116); ASPARTATE AMINOTRANSFERASE 21 U/L (15-37); BILIRUBIN,DIRECT 0.1 mg/dL (0.0-0.2); BILIRUBIN,TOTAL 0.4 mg/dL (0.2-1.0); CALCIUM, SERUM 9.5 mg/dL (8.5-10.1); CARBON DIOXIDE 30 mmol/L (21-32); CHLORIDE 103 mmol/L (98-107); CREATININE 1.2 mg/dL (0.6-1.3); GLUCOSE 101 mg/dL (74-106); POTASSIUM 3.6 mmol/L (3.5-5.1); SODIUM SERUM 137 mmol/L (136-145); TOTAL PROTEIN, SERUM 8.4 g/dL (6.4-8.2); UREA NITROGEN, BLOOD 7 mg/dL (7-18)
[2022-12-10 18:05] LABS: ACETAMINOPHEN < 10 ug/ml (10-30)
[2022-12-10 19:58] LABS: BILIRUBIN,URINE NEGATIVE (NEGATIVE); COLOR,URINE YELLOW (YELLOW); LEUKOCYTE ESTERASE ,URINE NEGATIVE (NEGATIVE); NITRITE, URINE NEGATIVE (NEGATIVE); PROTEIN,URINE NEGATIVE (NEGATIVE); UGLUCOSE NEGATIVE (NEGATIVE); UROBILINOGEN,URINE 0.2 EU/dL (0.2)
--- NOTE | 2022-12-10 20:04 | NUR ---
COVID SWAB DONE AND SENT TO LAB
[2022-12-10 20:16] LABS: BACTERIA,URINE N0 /HPF (None Seen); WBC,URINE 0-2 /HPF (0-3)
[2022-12-10 20:17] LABS: SQUAMOUS EPITHELIAL CELL,UR 0-2 /HPF (None Seen)
--- NOTE | 2022-12-10 21:19 | NUR ---
PATIENT IS AAO4. PATIENT IS CALM AND ABLE TO MAKE NEEDS KNOWN. PLACED COMFORTABLY IN ORLY CHAIR AT ROOM 18.
--- NOTE | 2022-12-10 23:35 | NUR ---
FACE SHEET AND CLINICALS FAXED TO [facility]
--- NOTE | 2022-12-11 01:06 | NUR ---
Per Brittnee at [facility] intake, pt got acceptes at [facility] under care of dr gaston # for report: [phone] ext [phone]
[2022-12-11] MEDS ORDERED: HYDROCHLOROTHIAZIDE 25 MG TABLET ONE (03:15)
[2022-12-11] MEDS ORDERED: HYDROCHLOROTHIAZIDE 25 MG TABLET PO ONE (03:30)
[2022-12-11] MEDS ORDERED: LISINOPRIL (20MG) 20 MG TABLET ONE (05:49)
[2022-12-11 05:53] VITALS: BP 176/120
[2022-12-11] MEDS ORDERED: LISINOPRIL (10MG) 10 MG TABLET PO SCH (09:00)
--- NOTE | 2022-12-11 10:20 | NUR ---
CALLED IN[facility] PER AYDE.
--- NOTE | 2022-12-11 14:22 | NUR ---
PER AYDE, PT ACCEPTED AT [facility] ACCEPTING MD: DR SELBY NUMBER FOR REPORT: [phone] WILL CALL BACK FOR ETA
--- NOTE | 2022-12-11 14:31 | NUR ---
ADMINISTRATIVE FELLOW WILL COLLECT PT IN 45 MINS PER AYDE.
== END 2022-12-11 15:00 ==
LOC: ER 17:06
DX: F10.129 Alcohol abuse with intoxication, unspecified (principal); Y90.5 Blood alcohol level of 100-119 mg/100 ml; R45.851 Suicidal ideations; Z91.013 Allergy to seafood; Z91.018 Allergy to other foods; F20.0 Paranoid schizophrenia; I10 Essential (primary) hypertension; F32.A Depression, unspecified; Z20.822 Contact with and (suspected) exposure to COVID-19
CPT/HCPCS: 99285; 85025; 80048; 80076; 81001; 36415; 87426; 80143; 80320; 80307; C9803; G0480

== ENCOUNTER 2023-05-19 01:21 | Emergency (ER) | payer MEDICAID ==
[~2023-05-19] VITALS: Ht 167.6 cm; Wt 95.3 kg
--- NOTE | 2023-05-19 03:33 | NUR ---
BIBSELMindy FROM STREET C/O DEPRESSION, SI PLAN TO RUN INTO TRAFFIC. PT A/OX4. TOLERATING R/A WELL WITH NO RESP DISTRESS. SAFETY MEASURES IN PLACE
--- NOTE | 2023-05-19 03:45 | NUR ---
HAND CHAIN MAKER AT PT'S BEDSIDE
[2023-05-19 03:50] LABS: BASOPHILS # (AUTO) 0.1 K/uL (0.0-0.2); BASOPHILS % (AUTO) 1.3 % (0.0-2.0); EOSINOPHILS % (AUTO) 0.8 % (0.0-6.0); HEMATOCRIT 41 % (39-51); HEMOGLOBIN 13.4 g/dL (13.5-17.5); LYMPHOCYTES # (AUTO) 2.3 K/uL (0.8-4.8); LYMPHOCYTES % (AUTO) 38.3 % (20.0-44.0); MEAN CORPUSCULAR HGB CONC 33 g/dl (31.0-36.0); MEAN CORPUSCULAR VOLUME 93 fL (80-96); MONOCYTES # (AUTO) 0.4 K/uL (0.1-1.30); MONOCYTES % (AUTO) 7.5 % (2.0-12.0); NEUTROPHILS # (AUTO) 3.1 K/uL (1.8-8.9); NEUTROPHILS % (AUTO) 52.1 % (43.0-81.0); PLATELET COUNT (AUTO) 309 K/uL (150-450); RED BLOOD CELL COUNT(AUTO) 4.41 MIL/uL (4.5-6.0)
[2023-05-19 04:00] LABS: BILIRUBIN,URINE NEGATIVE (NEGATIVE); COLOR,URINE YELLOW (YELLOW); LEUKOCYTE ESTERASE ,URINE NEGATIVE (NEGATIVE); NITRITE, URINE NEGATIVE (NEGATIVE); PROTEIN,URINE NEGATIVE (NEGATIVE); UGLUCOSE NEGATIVE (NEGATIVE); UROBILINOGEN,URINE 0.2 EU/dL (0.2)
[2023-05-19 04:02] LABS: CALCIUM, SERUM 10.4 mg/dL (8.5-10.1); CARBON DIOXIDE 30 mmol/L (21-32); CHLORIDE 102 mmol/L (98-107); CREATININE 1.3 mg/dL (0.6-1.3); GLUCOSE 138 mg/dL (74-106); POTASSIUM 3.8 mmol/L (3.5-5.1); SODIUM SERUM 144 mmol/L (136-145); UREA NITROGEN, BLOOD 12 mg/dL (7-18)
[2023-05-19 04:08] LABS: ALANINE AMINOTRANSFERASE 29 U/L (12-78); ALCOHOL, BLOOD 131 mg/dL (0-10); ALKALINE PHOSPHATASE 83 U/L (46-116); ASPARTATE AMINOTRANSFERASE 25 U/L (15-37); BILIRUBIN,DIRECT 0.1 mg/dL (0.0-0.2); BILIRUBIN,TOTAL 0.2 mg/dL (0.2-1.0); TOTAL PROTEIN, SERUM 8.6 g/dL (6.4-8.2)
--- NOTE | 2023-05-19 05:10 | NUR ---
FAXED CLINICALS AND FACESHEET TO [facility]
--- NOTE | 2023-05-19 06:45 | NUR ---
PT NO LONGER S/I DR. JAY RANGEL AWARE
--- NOTE | 2023-05-19 06:48 | NUR ---
Pt no longer SI. Patient discharged to home in stable condition. Written and verbal after care instructions given. Patient verbalizes understanding of instruction.
[2023-05-19 07:36] VITALS: BP 135/85; TEMP 98.1
== END 2023-05-19 07:36 | disposition home or self-care (01) ==
LOC: ER 01:31
DX: R45.851 Suicidal ideations (principal); F10.129 Alcohol abuse with intoxication, unspecified; I10 Essential (primary) hypertension; F32.A Depression, unspecified; F20.0 Paranoid schizophrenia; Z91.013 Allergy to seafood; Z91.018 Allergy to other foods; Y90.6 Blood alcohol level of 120-199 mg/100 ml; Z20.822 Contact with and (suspected) exposure to COVID-19
CPT/HCPCS: 99285; 85025; 80048; 80076; 81003; 36415; 87426; 80143; 80320; 80307; C9803; G0480

== ENCOUNTER 2023-06-26 17:29 | Emergency (ER) | payer MEDICAID ==
[~2023-06-26] VITALS: Ht 167.6 cm; Wt 92.5 kg
[2023-06-26 18:59] LABS: BILIRUBIN,URINE 2+ (NEGATIVE); COLOR,URINE DARK YELLOW (YELLOW); LEUKOCYTE ESTERASE ,URINE NEGATIVE (NEGATIVE); NITRITE, URINE POSITIVE (NEGATIVE); PH,URINE 6.5 (5.0-8.0); PROTEIN,URINE 3+ mg/dl (NEGATIVE); UGLUCOSE NEGATIVE (NEGATIVE)
[2023-06-26 19:12] LABS: BACTERIA,URINE 3+ /HPF (None Seen); WBC,URINE 0-2 /HPF (0-3)
[2023-06-26 19:16] LABS: MUCUS,URINE Many /LPF (None Seen)
[2023-06-26 19:24] LABS: BASOPHILS # (AUTO) 0.1 K/uL (0.0-0.2); BASOPHILS % (AUTO) 1.1 % (0.0-2.0); EOSINOPHILS % (AUTO) 0.1 % (0.0-6.0); HEMATOCRIT 40 % (39-51); HEMOGLOBIN 13.4 g/dL (13.5-17.5); LYMPHOCYTES # (AUTO) 1.7 K/uL (0.8-4.8); LYMPHOCYTES % (AUTO) 27.7 % (20.0-44.0); MEAN CORPUSCULAR HGB CONC 33 g/dl (31.0-36.0); MEAN CORPUSCULAR VOLUME 91 fL (80-96); MONOCYTES # (AUTO) 0.5 K/uL (0.1-1.30); MONOCYTES % (AUTO) 7.9 % (2.0-12.0); NEUTROPHILS # (AUTO) 3.8 K/uL (1.8-8.9); NEUTROPHILS % (AUTO) 63.2 % (43.0-81.0); PLATELET COUNT (AUTO) 208 K/uL (150-450); RED BLOOD CELL COUNT(AUTO) 4.43 MIL/uL (4.5-6.0)
--- NOTE | 2023-06-26 19:30 | NUR ---
BY SELF +SI, WANTS TO JUMP TO TRAFFIC VOL ADMISSION TO [facility]. PATIENT IS AOX4. ABLE TO MAKE NEEDS KNOWN. RESTING IN ROOM
--- NOTE | 2023-06-26 20:05 | NUR ---
URINE RECOLLECTED FOR URINE C/S
[2023-06-26 20:06] LABS: ALBUMIN 4.1 g/dL (3.4-5.0); BILIRUBIN,DIRECT 0.3 mg/dL (0.0-0.2); BILIRUBIN,TOTAL 1.4 mg/dL (0.2-1.0)
[2023-06-26] MEDS ORDERED: POTASSIUM CHLORIDE 20 MEQ TAB.PRT.SR PO ONE ×2 (20:58→21:00)
--- NOTE | 2023-06-26 20:59 | NUR ---
CLINICALS FAXED TO [facility]
--- NOTE | 2023-06-27 01:00 | NUR ---
PT REQUESTING FOR BED. HE IS COMPLAINING OF BACK PAIN. HE WANTS TO LIE IN BED. IT WAS EXPLAINED TO PT THAT THE BED IS FOR VERY SICK PT AND HE NEEDS TO STAY ON THE ASSIGNED BED UNTIL HE WILL BE PICKED UP BY TRANSPO
--- NOTE | 2023-06-27 02:50 | NUR ---
COVID SWAB DONE AND SENT TO LAB
--- NOTE | 2023-06-27 07:25 | NUR ---
received pt asleep, report given by pio gusman
--- NOTE | 2023-06-27 08:00 | NUR ---
Breakfast served-tolerated well. Still awaiting acceptance to psych facility
--- NOTE | 2023-06-27 08:11 | NUR ---
Jhonny called, fax papers. he will prioritized pt
--- NOTE | 2023-06-27 08:13 | NUR ---
FAXED CLINICALS TO [facility].
--- NOTE | 2023-06-27 12:08 | NUR ---
David Here to transport pt to [place] [facility]
[2023-06-27 12:20] VITALS: BP 140/90; TEMP 98.4; O2SAT 99
== END 2023-06-27 12:21 ==
LOC: ER 17:31
DX: R45.851 Suicidal ideations (principal); F10.129 Alcohol abuse with intoxication, unspecified; I10 Essential (primary) hypertension; F32.A Depression, unspecified; F20.0 Paranoid schizophrenia; Z91.018 Allergy to other foods; Z91.013 Allergy to seafood; Z20.822 Contact with and (suspected) exposure to COVID-19; Y90.6 Blood alcohol level of 120-199 mg/100 ml
CPT/HCPCS: 99285; 85025; 80048; 87086; 80076; 81001; 36415; 80143; 80320; 80307; 87426; C9803; G0480

== ENCOUNTER 2023-10-14 01:16 | Emergency (ER) | payer MEDICAID, OTHER ==
[~2023-10-14] VITALS: Ht 167.6 cm; Wt 95.3 kg
[2023-10-14 01:49] LABS: APPEARANCE,URINE CLEAR (CLEAR); BILIRUBIN,URINE NEGATIVE (NEGATIVE); BLOOD, URINE NEGATIVE Ery/uL (NEGATIVE); COLOR,URINE YELLOW (YELLOW); KETONES,URINE NEGATIVE (NEGATIVE); LEUKOCYTE ESTERASE ,URINE NEGATIVE (NEGATIVE); NITRITE, URINE NEGATIVE (NEGATIVE); PH,URINE 6.5 (5.0-8.0); PROTEIN,URINE TRACE mg/dl (NEGATIVE); UGLUCOSE NEGATIVE (NEGATIVE); UROBILINOGEN,URINE 0.2 EU/dL (0.2)
[2023-10-14 02:03] LABS: AMPHETAMINE, URINE NEGATIVE (NEGATIVE); BARBITURATE, URINE NEGATIVE (NEGATIVE); BENZODIAZEPINE, URINE NEGATIVE (NEGATIVE); COCCAINE, URINE NEGATIVE (NEGATIVE); OPIATE, URINE NEGATIVE (NEGATIVE); PHENCYCLIDINE SCREEN,URINE NEGATIVE (NEGATIVE)
[2023-10-14 02:04] LABS: ADD URINE CULTURE NO; BACTERIA,URINE None seen /HPF (None Seen); CANNABINOID, URINE POSITIVE (NEGATIVE); MUCUS,URINE Rare /LPF (None Seen); RBC,URINE NONE SEEN /HPF (0-2); SQUAMOUS EPITHELIAL CELL,UR 0-2 /HPF (None Seen); WBC,URINE NONE SEEN /HPF (0-3)
[2023-10-14 02:05] LABS: BASOPHILS % (AUTO) 0.4 % (0.0-2.0); HEMATOCRIT 41 % (39-51); HEMOGLOBIN 13.7 g/dL (13.5-17.5); LYMPHOCYTES # (AUTO) 2.9 K/uL (0.8-4.8); LYMPHOCYTES % (AUTO) 58.4 % (20.0-44.0); MEAN CORPUSCULAR HEMOGLOBIN 29 PG (26.0-33.0); MEAN CORPUSCULAR HGB CONC 33 g/dl (31.0-36.0); MEAN CORPUSCULAR VOLUME 87 fL (80-96); MONOCYTES # (AUTO) 0.5 K/uL (0.1-1.30); MONOCYTES % (AUTO) 9.1 % (2.0-12.0); NEUTROPHILS # (AUTO) 1.6 K/uL (1.8-8.9); NEUTROPHILS % (AUTO) 31.1 % (43.0-81.0); PLATELET COUNT (AUTO) 353 K/uL (150-450); RED BLOOD CELL COUNT(AUTO) 4.75 MIL/uL (4.5-6.0); RED CELL DISTRIBUTION WIDTH 15.7 % (11.5-15.0)
[2023-10-14 02:08] LABS: CALCIUM, SERUM 9.4 mg/dL (8.5-10.1); CREATININE 1.5 mg/dL (0.6-1.3); POTASSIUM 3.4 mmol/L (3.5-5.1)
[2023-10-14 02:14] LABS: ALBUMIN 3.8 g/dL (3.4-5.0); BILIRUBIN,DIRECT 0.1 mg/dL (0.0-0.2); BILIRUBIN,TOTAL 0.3 mg/dL (0.2-1.0); TOTAL PROTEIN, SERUM 8.3 g/dL (6.4-8.2)
[2023-10-14 03:00] LABS: EOSINOPHILS % (MANUAL) 2 % (0-4); LYMPHOCYTES % (MANUAL) 71 % (16-48); MONOCYTES % (MANUAL) 4 % (0-11.0); NEUTROPHILS % (MANUAL) 23 (42-76); PLATELET ESTIMATE ADEQUATE
[2023-10-14 15:40] VITALS: BP 134/69; TEMP 97.8; O2SAT 100
== END 2023-10-14 12:26 ==
LOC: ER 01:17
DX: R45.851 Suicidal ideations (principal); I10 Essential (primary) hypertension; F32.A Depression, unspecified; F20.0 Paranoid schizophrenia; Z91.018 Allergy to other foods; Z91.013 Allergy to seafood
CPT/HCPCS: 36415; 80048-TC; 80076-TC; 81001; 85025-TC; G0480

== ENCOUNTER 2024-01-07 19:48 | Emergency (ER) | payer MEDICAID, OTHER | END 2024-01-07 22:02 | disposition left against medical advice (07) | LOC: EDUNIT# 19:48 → ER 19:51 | DX: Z00.00 Encounter for general adult medical examination without abnormal findings (principal); Z53.21 Procedure and treatment not carried out due to patient leaving prior to being seen by health care provider ==

== ENCOUNTER 2024-05-26 17:31 | Emergency (ER) | payer MEDICAID ==
[~2024-05-26] VITALS: Ht 167.6 cm; Wt 93.4 kg
[2024-05-26 17:50] VITALS: BP 137/88; TEMP 98; O2SAT 97
[2024-05-26 18:26] LABS: BASOPHILS # (AUTO) 0.1 K/uL (0.0-0.2); BASOPHILS % (AUTO) 0.9 % (0.0-2.0); EOSINOPHILS # (AUTO) 0.1 K/uL (0.0-0.7); EOSINOPHILS % (AUTO) 1.6 % (0.0-6.0); HEMATOCRIT 35 % (39-51); HEMOGLOBIN 11.8 g/dL (13.5-17.5); LYMPHOCYTES # (AUTO) 1.6 K/uL (0.8-4.8); LYMPHOCYTES % (AUTO) 27.6 % (20.0-44.0); MEAN CORPUSCULAR HEMOGLOBIN 31 PG (26.0-33.0); MEAN CORPUSCULAR HGB CONC 34 g/dl (31.0-36.0); MEAN CORPUSCULAR VOLUME 92 fL (80-96); MONOCYTES # (AUTO) 0.7 K/uL (0.1-1.30); MONOCYTES % (AUTO) 11.7 % (2.0-12.0); NEUTROPHILS # (AUTO) 3.3 K/uL (1.8-8.9); NEUTROPHILS % (AUTO) 58.2 % (43.0-81.0); PLATELET COUNT (AUTO) 166 K/uL (150-450); RED BLOOD CELL COUNT(AUTO) 3.83 MIL/uL (4.5-6.0); RED CELL DISTRIBUTION WIDTH 16.8 % (11.5-15.0); WHITE BLOOD COUNT (AUTO) 5.7 K/uL (4.3-11.0)
[2024-05-26 18:59] LABS: ALBUMIN 3.1 g/dL (3.4-5.0); BILIRUBIN,DIRECT 0.1 mg/dL (0.0-0.2); BILIRUBIN,TOTAL 0.3 mg/dL (0.2-1.0); CALCIUM, SERUM 9.2 mg/dL (8.5-10.1); CREATININE 1.2 mg/dL (0.6-1.3); POTASSIUM 3.3 mmol/L (3.5-5.1); TOTAL PROTEIN, SERUM 7.1 g/dL (6.4-8.2)
[2024-05-26 19:01] LABS: SALICYLATE 1.1 mg/dL (2.8-20.0)
[2024-05-26 19:33] LABS: APPEARANCE,URINE CLEAR (CLEAR); BILIRUBIN,URINE NEGATIVE (NEGATIVE); BLOOD, URINE NEGATIVE Ery/uL (NEGATIVE); COLOR,URINE YELLOW (YELLOW); KETONES,URINE NEGATIVE (NEGATIVE); LEUKOCYTE ESTERASE ,URINE NEGATIVE (NEGATIVE); NITRITE, URINE NEGATIVE (NEGATIVE); PROTEIN,URINE NEGATIVE (NEGATIVE); UGLUCOSE NEGATIVE (NEGATIVE); UROBILINOGEN,URINE 0.2 EU/dL (0.2)
[2024-05-26] MEDS ORDERED: LIDOCAINE 5% (PATCH) 1 EA PATCH TP ONE (19:46)
[2024-05-26] MEDS ORDERED: ACETAMINOPHEN ES 500 MG TABLET ONE (19:46)
[2024-05-26] MEDS: ACETAMINOPHEN ES 500 MG TABLET PO ONE (19:49)
[2024-05-26] MEDS: LIDOCAINE 5% (PATCH) 1 EA PATCH TP ONE (19:49)
[2024-05-26 20:13] LABS: AMPHETAMINE, URINE NEGATIVE (NEGATIVE); BARBITURATE, URINE NEGATIVE (NEGATIVE); CANNABINOID, URINE NEGATIVE (NEGATIVE); COCCAINE, URINE NEGATIVE (NEGATIVE); OPIATE, URINE NEGATIVE (NEGATIVE); PHENCYCLIDINE SCREEN,URINE NEGATIVE (NEGATIVE)
[2024-05-26 20:14] LABS: BENZODIAZEPINE, URINE POSITIVE (NEGATIVE)
== END 2024-05-26 22:12 ==
LOC: ER 17:56
DX: R45.851 Suicidal ideations (principal); I10 Essential (primary) hypertension; F32.A Depression, unspecified; F19.10 Other psychoactive substance abuse, uncomplicated; F17.200 Nicotine dependence, unspecified, uncomplicated; R56.9 Unspecified convulsions; F20.0 Paranoid schizophrenia; Z91.013 Allergy to seafood; Z91.018 Allergy to other foods; Z20.822 Contact with and (suspected) exposure to COVID-19
CPT/HCPCS: 36415; 80048-TC; 80076-TC; 85025-TC; G0480

== ENCOUNTER 2024-06-10 16:15 | Emergency (ER) | payer MEDICAID ==
[~2024-06-10] VITALS: Ht 167.6 cm; Wt 95.3 kg
[2024-06-10 16:44] LABS: BASOPHILS # (AUTO) 0.1 K/uL (0.0-0.2); BASOPHILS % (AUTO) 0.7 % (0.0-2.0); EOSINOPHILS # (AUTO) 0.1 K/uL (0.0-0.7); EOSINOPHILS % (AUTO) 0.8 % (0.0-6.0); HEMATOCRIT 41 % (39-51); HEMOGLOBIN 13.6 g/dL (13.5-17.5); LYMPHOCYTES # (AUTO) 2.9 K/uL (0.8-4.8); LYMPHOCYTES % (AUTO) 41.5 % (20.0-44.0); MEAN CORPUSCULAR HEMOGLOBIN 30 PG (26.0-33.0); MEAN CORPUSCULAR HGB CONC 33 g/dl (31.0-36.0); MEAN CORPUSCULAR VOLUME 90 fL (80-96); MONOCYTES # (AUTO) 0.4 K/uL (0.1-1.30); MONOCYTES % (AUTO) 6.1 % (2.0-12.0); NEUTROPHILS # (AUTO) 3.6 K/uL (1.8-8.9); NEUTROPHILS % (AUTO) 50.9 % (43.0-81.0); PLATELET COUNT (AUTO) 345 K/uL (150-450); RED BLOOD CELL COUNT(AUTO) 4.57 MIL/uL (4.5-6.0); RED CELL DISTRIBUTION WIDTH 16.2 % (11.5-15.0)
[2024-06-10 16:51] LABS: CALCIUM, SERUM 9.5 mg/dL (8.5-10.1); CREATININE 1.2 mg/dL (0.6-1.3); POTASSIUM 3.7 mmol/L (3.5-5.1)
[2024-06-10 16:58] LABS: ALBUMIN 3.7 g/dL (3.4-5.0); BILIRUBIN,DIRECT 0.1 mg/dL (0.0-0.2); BILIRUBIN,TOTAL 0.3 mg/dL (0.2-1.0); TOTAL PROTEIN, SERUM 8.8 g/dL (6.4-8.2)
[2024-06-10 16:59] LABS: SALICYLATE 2.7 mg/dL (2.8-20.0)
[2024-06-10 17:18] LABS: APPEARANCE,URINE Slightly Cloudy (CLEAR); BILIRUBIN,URINE Negative (NEGATIVE); BLOOD, URINE Trace-intact Ery/uL (NEGATIVE); COLOR,URINE YELLOW (YELLOW); KETONES,URINE Negative (NEGATIVE); LEUKOCYTE ESTERASE ,URINE Negative (NEGATIVE); NITRITE, URINE Negative (NEGATIVE); PH,URINE 5.5 (5.0-8.0); PROTEIN,URINE 30 mg/dl (NEGATIVE); UGLUCOSE Negative (NEGATIVE); UROBILINOGEN,URINE 0.2 EU/dL (0.2)
[2024-06-10 17:27] LABS: AMPHETAMINE, URINE NEGATIVE (NEGATIVE); BARBITURATE, URINE NEGATIVE (NEGATIVE); CANNABINOID, URINE NEGATIVE (NEGATIVE); COCCAINE, URINE NEGATIVE (NEGATIVE); OPIATE, URINE NEGATIVE (NEGATIVE); PHENCYCLIDINE SCREEN,URINE NEGATIVE (NEGATIVE)
[2024-06-10 17:28] LABS: BENZODIAZEPINE, URINE POSITIVE (NEGATIVE)
[2024-06-10 18:09] LABS: ADD URINE CULTURE YES; BACTERIA,URINE 2+ /HPF (None Seen); RBC,URINE 0-2 /HPF (0-2); WBC,URINE 0-2 /HPF (0-3)
[2024-06-10 18:10] LABS: SQUAMOUS EPITHELIAL CELL,UR Moderate /HPF (None Seen)
[2024-06-11] MEDS ORDERED: TRAZODONE 50 MG TABLET ONE (00:27)
[2024-06-11] MEDS: TRAZODONE 50 MG TABLET PO ONE (00:30)
[2024-06-11 10:23] VITALS: BP 120/72; TEMP 98; O2SAT 98
== END 2024-06-11 10:25 ==
LOC: ER 17:10
DX: F32.A Depression, unspecified (principal); R56.9 Unspecified convulsions; I10 Essential (primary) hypertension; F20.0 Paranoid schizophrenia; F19.10 Other psychoactive substance abuse, uncomplicated; F17.200 Nicotine dependence, unspecified, uncomplicated; F10.10 Alcohol abuse, uncomplicated; Z91.013 Allergy to seafood; Z91.018 Allergy to other foods; Z20.822 Contact with and (suspected) exposure to COVID-19; Y90.8 Blood alcohol level of 240 mg/100 ml or more
CPT/HCPCS: 36415; 80048-TC; 80076-TC; 81001; 85025-TC; G0480

== ENCOUNTER 2024-07-11 20:32 | Emergency (ER) | payer MEDICAID ==
[~2024-07-11] VITALS: Ht 160 cm; Wt 99.8 kg
[2024-07-12 03:46] LABS: BASOPHILS # (AUTO) 0.1 K/uL (0.0-0.2); BASOPHILS % (AUTO) 1.5 % (0.0-2.0); EOSINOPHILS % (AUTO) 0.5 % (0.0-6.0); HEMATOCRIT 44 % (39-51); HEMOGLOBIN 14.5 g/dL (13.5-17.5); LYMPHOCYTES # (AUTO) 1.8 K/uL (0.8-4.8); LYMPHOCYTES % (AUTO) 33.3 % (20.0-44.0); MEAN CORPUSCULAR HEMOGLOBIN 30 PG (26.0-33.0); MEAN CORPUSCULAR HGB CONC 33 g/dl (31.0-36.0); MEAN CORPUSCULAR VOLUME 89 fL (80-96); MONOCYTES # (AUTO) 0.3 K/uL (0.1-1.30); NEUTROPHILS # (AUTO) 3.1 K/uL (1.8-8.9); NEUTROPHILS % (AUTO) 59.7 % (43.0-81.0); PLATELET COUNT (AUTO) 194 K/uL (150-450); RED BLOOD CELL COUNT(AUTO) 4.88 MIL/uL (4.5-6.0); RED CELL DISTRIBUTION WIDTH 15.8 % (11.5-15.0); WHITE BLOOD COUNT (AUTO) 5.3 K/uL (4.3-11.0)
[2024-07-12 04:12] LABS: CALCIUM, SERUM 9.4 mg/dL (8.5-10.1); CARBON DIOXIDE 23 mmol/L (21-32); CHLORIDE 98 mmol/L (98-107); CREATININE 1.3 mg/dL (0.6-1.3); GLUCOSE 116 mg/dL (74-106); POTASSIUM 3.1 mmol/L (3.5-5.1); SODIUM SERUM 142 mmol/L (136-145); UREA NITROGEN, BLOOD 15 mg/dL (7-18)
[2024-07-12 04:18] LABS: ALANINE AMINOTRANSFERASE 40 U/L (12-78); ALBUMIN 3.9 g/dL (3.4-5.0); ALCOHOL, BLOOD 195 mg/dL (0-10); ALKALINE PHOSPHATASE 100 U/L (46-116); ASPARTATE AMINOTRANSFERASE 43 U/L (15-37); BILIRUBIN,DIRECT 0.2 mg/dL (0.0-0.2); BILIRUBIN,TOTAL 0.6 mg/dL (0.2-1.0); SALICYLATE 3.1 mg/dL (2.8-20.0)
[2024-07-12 04:20] LABS: ACETAMINOPHEN <10 ug/ml (10-30)
[2024-07-12] MEDS ORDERED: POTASSIUM CHLORIDE 20 MEQ TAB.PRT.SR PO ONE (04:55)
[2024-07-12] MEDS: POTASSIUM CHLORIDE 20 MEQ TAB.PRT.SR PO ONE (04:57)
[2024-07-12 04:59] LABS: APPEARANCE,URINE CLEAR (CLEAR); BILIRUBIN,URINE 1+ (NEGATIVE); BLOOD, URINE 3+ Ery/uL (NEGATIVE); COLOR,URINE YELLOW (YELLOW); KETONES,URINE 2+ mg/dL (NEGATIVE); LEUKOCYTE ESTERASE ,URINE NEGATIVE (NEGATIVE); NITRITE, URINE NEGATIVE (NEGATIVE); PROTEIN,URINE 3+ mg/dl (NEGATIVE); UGLUCOSE NEGATIVE (NEGATIVE); UROBILINOGEN,URINE 0.2 EU/dL (0.2)
[2024-07-12 05:00] LABS: RBC,URINE 21-50 /HPF (0-2)
[2024-07-12 05:01] LABS: ADD URINE CULTURE YES; BACTERIA,URINE Rare /HPF (None Seen); SQUAMOUS EPITHELIAL CELL,UR Rare /HPF (None Seen)
[2024-07-12 05:09] LABS: AMPHETAMINE, URINE NEGATIVE (NEGATIVE); BARBITURATE, URINE NEGATIVE (NEGATIVE); CANNABINOID, URINE NEGATIVE (NEGATIVE); COCCAINE, URINE NEGATIVE (NEGATIVE); OPIATE, URINE NEGATIVE (NEGATIVE); PHENCYCLIDINE SCREEN,URINE NEGATIVE (NEGATIVE)
[2024-07-12 05:16] LABS: BENZODIAZEPINE, URINE POSITIVE (NEGATIVE)
[2024-07-12 11:42] VITALS: BP 128/73; TEMP 98.4; O2SAT 98
== END 2024-07-12 11:42 ==
LOC: ER 21:28
DX: F10.129 Alcohol abuse with intoxication, unspecified (principal); F32.A Depression, unspecified; F17.200 Nicotine dependence, unspecified, uncomplicated; F19.10 Other psychoactive substance abuse, uncomplicated; I10 Essential (primary) hypertension; F20.0 Paranoid schizophrenia; Z91.013 Allergy to seafood; Z91.018 Allergy to other foods; Z20.822 Contact with and (suspected) exposure to COVID-19; Y90.6 Blood alcohol level of 120-199 mg/100 ml
CPT/HCPCS: 36415; 80048-TC; 80076-TC; 81001; 85025-TC; G0480

== ENCOUNTER 2024-08-07 14:44 | Emergency (ER) | payer MEDICAID, OTHER ==
[~2024-08-07] VITALS: Ht 160 cm; Wt 99.8 kg
[2024-08-07 16:16] LABS: BASOPHILS % (AUTO) 0.7 % (0.0-2.0); EOSINOPHILS % (AUTO) 0.6 % (0.0-6.0); HEMATOCRIT 47 % (39-51); HEMOGLOBIN 15.7 g/dL (13.5-17.5); LYMPHOCYTES # (AUTO) 2.3 K/uL (0.8-4.8); LYMPHOCYTES % (AUTO) 39.7 % (20.0-44.0); MEAN CORPUSCULAR HEMOGLOBIN 30 PG (26.0-33.0); MEAN CORPUSCULAR HGB CONC 33 g/dl (31.0-36.0); MEAN CORPUSCULAR VOLUME 90 fL (80-96); MONOCYTES # (AUTO) 0.4 K/uL (0.1-1.30); MONOCYTES % (AUTO) 6.1 % (2.0-12.0); NEUTROPHILS # (AUTO) 3.1 K/uL (1.8-8.9); NEUTROPHILS % (AUTO) 52.9 % (43.0-81.0); PLATELET COUNT (AUTO) 356 K/uL (150-450); RED BLOOD CELL COUNT(AUTO) 5.21 MIL/uL (4.5-6.0); RED CELL DISTRIBUTION WIDTH 16.2 % (11.5-15.0); WHITE BLOOD COUNT (AUTO) 5.9 K/uL (4.3-11.0)
[2024-08-07 17:09] LABS: APPEARANCE,URINE Clear (CLEAR); BILIRUBIN,URINE SMALL (NEGATIVE); BLOOD, URINE Moderate Ery/uL (NEGATIVE); COLOR,URINE DARK YELLOW (YELLOW); KETONES,URINE Trace mg/dL (NEGATIVE); LEUKOCYTE ESTERASE ,URINE Negative (NEGATIVE); NITRITE, URINE Negative (NEGATIVE); PH,URINE 5.5 (5.0-8.0); PROTEIN,URINE >=300 mg/dl (NEGATIVE); UGLUCOSE Negative (NEGATIVE); UROBILINOGEN,URINE 0.2 EU/dL (0.2)
[2024-08-07 17:19] LABS: CALCIUM, SERUM 9.9 mg/dL (8.5-10.1); CREATININE 1.7 mg/dL (0.6-1.3); POTASSIUM 3.6 mmol/L (3.5-5.1)
[2024-08-07 17:28] LABS: ALBUMIN 4.4 g/dL (3.4-5.0); BILIRUBIN,DIRECT 0.1 mg/dL (0.0-0.2); BILIRUBIN,TOTAL 0.4 mg/dL (0.2-1.0); TOTAL PROTEIN, SERUM 9.1 g/dL (6.4-8.2)
[2024-08-07 17:34] LABS: SALICYLATE 2.5 mg/dL (2.8-20.0)
[2024-08-07 17:44] LABS: AMPHETAMINE, URINE NEGATIVE (NEGATIVE); BARBITURATE, URINE NEGATIVE (NEGATIVE); BENZODIAZEPINE, URINE NEGATIVE (NEGATIVE); CANNABINOID, URINE NEGATIVE (NEGATIVE); COCCAINE, URINE NEGATIVE (NEGATIVE); OPIATE, URINE NEGATIVE (NEGATIVE); PHENCYCLIDINE SCREEN,URINE NEGATIVE (NEGATIVE)
[2024-08-07 18:01] LABS: ADD URINE CULTURE NO; BACTERIA,URINE Few /HPF (None Seen); SQUAMOUS EPITHELIAL CELL,UR Few /HPF (None Seen); WBC,URINE 0-2 /HPF (0-3)
[2024-08-08 03:45] VITALS: BP 121/79; TEMP 97.9; O2SAT 99
== END 2024-08-08 03:45 ==
LOC: ER 15:03
DX: R45.851 Suicidal ideations (principal); I10 Essential (primary) hypertension; F32.A Depression, unspecified; F20.0 Paranoid schizophrenia; Z79.891 Long term (current) use of opiate analgesic; Z20.822 Contact with and (suspected) exposure to COVID-19; Z79.899 Other long term (current) drug therapy; Z88.1 Allergy status to other antibiotic agents
CPT/HCPCS: 36415; 80048-TC; 80076-TC; 81001; 85025-TC; G0480